=== PATIENT | female | born 1930 | race Caucasian/White ===

== ENCOUNTER 2016-09-12 10:47 | Outpatient (CLI) | payer MEDICARE ==
[2016-09-12 11:44] LABS: Hemoglobin A1c 7.9 % (4.0-6.0)
[2016-09-12 12:09] LABS: ALT (SGPT) 9 U/L (8-55); AST (SGOT) 13 U/L (5-34); Albumin 3.6 g/dL (3.4-4.8); Alkaline Phosphatase 103 U/L (40-150); Anion Gap 14 mmol/L (10-20); BUN (Urea Nitrogen) 14 mg/dL (9.8-20.1); Bilirubin, Total Less than 0.3 mg/dL (0.2-1.2); Calc. Creatinine Clearance 0 mL/min (70-130); Carbon Dioxide 28 mmol/L (23-31); Cardiac Risk 2.9 (Less than 4.5); Chloride 104 mmol/L (98-107); Cholesterol 177 mg/dl (< 200 Desired); Dilantin Less than 1.8 ug/mL (10.0-20.0); Estimated GFR-MDRD 53; Glucose 187 mg/dL (83-110); HDL Cholesterol 61 mg/dL (>60 Neg Risk); LDL Cholesterol, Calculated 98 mg/dL; Potassium 4.1 mmol/L (3.5-5.1); Protein, Total 6.6 g/dL (6.0-8.3); Sodium 142 mmol/L (136-145); Triglycerides 90 mg/dL (Less than 150)
[2016-09-12 13:12] LABS: #Basophils 0.1 thou/uL (0.0-0.2); #Eosinphils 0.7 thou/uL (0.0-0.7); #Lymphocytes 1.8 thou/uL (1.20-3.40); #Monocytes 0.7 thou/uL (0.11-0.59); #Neutrophils 3.8 thou/uL (1.40-6.50); %Basophils 1.3 % (0.0-1.0); %Eosinophils 9.4 % (0.0-10.0); %Lymphocytes 25.1 % (21.0-51.0); %Monocytes 9.7 % (0.0-10.0); %Neutrophils 54.5 % (42.0-75.0); Hemoglobin 12.5 g/dL (12.0-16.0); Mean Corpuscular HGB CONC 32.5 g/dL (32.0-36.0); Mean Corpuscular Volume 98.4 fl (81.0-99.0); Mean Platelet Volume 7.5 fL (7.4-10.4); Platelet Count 250 thou/uL (130-400); RBC Distribution Width 12.3 % (11.5-14.5)
== END 2016-09-12 10:48 | disposition home or self-care (01) ==
LOC: MADLABBHPM 10:47
PROVIDERS: ATTEND Family Medicine
DX: E11.9 Type 2 diabetes mellitus without complications (principal); F32.9 Major depressive disorder, single episode, unspecified; G40.309 Generalized idiopathic epilepsy and epileptic syndromes, not intractable, without status epilepticus
CPT/HCPCS: 36415; 80053; 80061; 80185; 83036; 84443; 85025

== ENCOUNTER 2017-08-20 17:44 | Inpatient (IN) | payer MEDICARE ==
[2017-08-20] MEDS ORDERED: Bisacodyl 10 MG SUPP PR PRN (19:44)
[2017-08-20] MEDS ORDERED: Ondansetron ODT 4 MG TAB PO PRN (19:47)
[2017-08-20] MEDS: Magnesium Oxide 400 MG TAB PO SCH (21:04)
[2017-08-20] MEDS: Metoprolol Tartrate 25 MG TAB PO SCH (21:04)
[2017-08-20] MEDS: Gabapentin 300 MG CAP PO SCH (21:04)
[2017-08-20] MEDS: Multivit, Therapeutic 1 TAB PO SCH (21:04)
[2017-08-20] MEDS: Nitrofurantoin Monohyd/M-Cryst 100 MG CAP PO SCH (21:04)
[2017-08-20] MEDS: Senokot S 8.6-50 MG TAB PO SCH (21:04)
[2017-08-20] MEDS: Acetaminophen 500 MG TAB PO SCH (21:06)
[2017-08-21] MEDS: Acetaminophen 500 MG TAB PO SCH ×4 (04:59→23:25)
[2017-08-21] MEDS: Nystatin Powder 15 GM BOT TOP PRN ×2 (04:59→08:13)
[2017-08-21 05:16] LABS: Anion Gap 14 mmol/L (10-20); BUN (Urea Nitrogen) 17 mg/dL (9.8-20.1); Calc. Creatinine Clearance 49 mL/min (70-130); Calcium 8.4 mg/dL (7.8-10.44); Carbon Dioxide 26 mmol/L (23-31); Chloride 106 mmol/L (98-107); Estimated GFR-MDRD 51; Glucose 213 mg/dL (83-110); Potassium 4.6 mmol/L (3.5-5.1); Sodium 141 mmol/L (136-145)
[2017-08-21 05:21] LABS: Anisocytosis SLIGHT = 6-15 cells (100X) (0-5/hpf); Eosinophils 14 % (0-10); Hemoglobin 8.8 g/dL (12.0-16.0); Hypochromia MODERATE=16-30 cells (100X) (0-5/hpf); Lymphocytes 27 % (21-51); MDiff Complete? YES; Macrocytosis SLIGHT = 6-15 cells (100X) (0-5/hpf); Mean Corpuscular Hemoglobin 24.5 pg (27.0-31.0); Mean Corpuscular Volume 74.3 fl (81.0-99.0); Mean Platelet Volume 6.1 fL (7.4-10.4); Microcytosis SLIGHT = 6-15 cells (100X) (0-5/hpf); Monocytes 10 % (0-10); Neutrophil 46 % (42-75); PLT Morphology Comment Appears Adequate; Platelet Count 337 thou/uL (130-400); Poikilocytosis SLIGHT = 6-15 cells (100X) (0-5/hpf); RBC Distribution Width 18.7 % (11.5-14.5); RBC Morphology Abnormal; Reactive Lymphocytes 1 % (0-10); Red Blood Cell (RBC) Count 3.58 mill/uL (4.20-5.40); White Blood Cell (WBC) Count 9.5 thou/uL (4.8-10.8)
[2017-08-21] MEDS ORDERED: metFORMIN 500 MG TAB PO SCH (08:00)
[2017-08-21] MEDS: Nitrofurantoin Monohyd/M-Cryst 100 MG CAP PO SCH ×2 (08:12→19:57)
[2017-08-21] MEDS: Polyethylene Glycol 3350 17 GM Packet PO SCH (08:12)
[2017-08-21] MEDS: Enoxaparin Sodium 30 MG/0.3 ML SYRINGE SC SCH (08:12)
[2017-08-21] MEDS: Ferrous Sulfate 325 MG TAB PO SCH ×2 (08:13→17:13)
[2017-08-21] MEDS: Gabapentin 300 MG CAP PO SCH ×2 (08:14→19:57)
[2017-08-21] MEDS: Metoprolol Tartrate 25 MG TAB PO SCH ×2 (08:14→19:58)
[2017-08-21] MEDS: Famotidine 20 MG TAB PO SCH (08:14)
[2017-08-21] MEDS: Ascorbic Acid 500 mg Chewable Tablet PO SCH ×2 (08:14→17:13)
[2017-08-21] MEDS: Senokot S 8.6-50 MG TAB PO SCH ×2 (08:15→19:56)
--- NOTE | 2017-08-21 10:10 | HP ---
DATE OF ADMISSION: Admitted to [facility] to extended care on the evening of 08/20/2017. CHIEF COMPLAINT: Weakness following a fracture of the right tibia. 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 She also has a history of seizure s, which have been controlled with low dose Dilantin and diabetes type 2, complicated by peripheral n europathy. The patient has hypertension and chronic kidney disease. The patient resides with her [facility] where her daughter serves as her primary caregiver. The patient is not ambulatory, but has be en able to assist with transfers and sits up in a wheelchair. Patient has been paralyzed on her righ t side and unable to talk from the stroke. The patient had a fall at home and was brought to the [facility] room where she was found to have a closed fracture of the proximal third of the tibia-fibula t hat was oblique and externally rotated. The patient was transferred to [facility] where she remained from 08/17/2017 until 08/20/2017. She was seen in consultation by Dr. Naseem martinez, orthopedic surgeon, who said that due to the patient's comorbidities, her previous stroke leavin g her paralyzed on her right side, and the fact she was not ambulatory, in addition poor circulation and osteoporotic bone, he has recommended nonsurgical treatment. Any surgical intervention would be very high risk and repair would offer little benefit since she was already paralyzed on that side. S he was not a candidate for her cast due to the poor sensation in the leg and foot, so she has been le ft in a long leg knee immobilizer. This was fully discussed with her daughter, Silvia, and has elec armin to transfer her to [facility] for efforts for physical therapy to help improve her bed mobi lity, allow her up in a chair, and continue mobilization of the right leg with a long leg immobilizer . She arrived at [facility] late on the afternoon or early evening of 08/20/2016. The patient was seen early on the morning of 08/21/2017. She was alert. She was aphasic, but would answer my question with a nod of her head in an affirmative or negative fashion. She said she was no t having any pain. PAST HISTORY: Hospitalized from 08/17/2017 until 08/20/2017 at [facility] following a fal l resulting in a fracture of the tibia-fibula oblique located at the proximal middle third of the rig ht lower leg and was externally rotated, manage with splinting and not a cast due to she was not an o perative candidate. See above. Patient has had a previous stroke that has left her with a right hem iparalysis, aphasic, and some mild dysphagia. The stroke occurred in 2000. She has a seizure disord er, which has been controlled on low-dose Dilantin. She has diabetes, type 2; hypertension; hypercho lesterolemia; depression that has been controlled; and peripheral neuropathy of the lower extremities . She had a fracture of the right ankle, requiring open reduction internal fixation by Dr. Huggins in 11/2010. Atrial fibrillation, found during hospitalization on 08/17/2017, managed with oral agents. Not a candidate for long-term anticoagulation due to fall risk. PRESENT MEDICINES: Vitamin D 1000 units daily, multivitamin daily, albuterol 0.083% 3 mL by nebulize r 4 times a day as needed, Cardizem-CD 120 mg daily, Dilantin 100 mg daily, metformin 500 mg b.i.d., ascorbic acid 500 mg b.i.d., Dulcolax suppository 10 mg daily as needed, famotidine 20 mg daily, ferr ous sulfate 325 mg b.i.d., gabapentin 300 mg b.i.d., magnesium oxide 400 mg at bedtime, metoprolol ta rtrate 12.5 mg b.i.d., nitrofurantoin 100 mg b.i.d. for additional 5 days, Nystatin powder applied to reddened skin fold areas as needed, MiraLax 17 grams 8 ounces water daily, Senokot-S 1 b.i.d., sotal ol 150 mg daily. Tramadol 50 mg b.i.d. and the acetaminophen 500 mg two 4 times a day. ALLERGIES: CODEINE, causes vomiting; HYDROCODONE, ETODOLAC, and KAYCEE INHIBITORS. REVIEW OF SYSTEMS: The patient not able to answer review of systems, but was able to respond by a po sitive or negative nod of her head. Pulmonary: No shortness of breath. Cardiovascular: No chest p ain. Gastrointestinal: No nausea or vomiting. No diarrhea. Neurologic: No seizures. ADLs: The patient resides with her daughter and is able to assist with transfer, is able to sit up i n a chair, is able to assist with dressing, requires assistance with bathing, is able to feed herself . HABITS: Alcohol none. Tobacco none. CODE STATUS: FULL CODE. PHYSICAL EXAMINATION: GENERAL: Shows a pleasant 86-year-old white female, who is lying in bed. She is alert, looks very c omfortable. She is wearing a long leg knee immobilizer on the right leg. VITAL SIGNS: Show a temperature of 97.4; pulse 70; respirations 18; O2 sat 93% on room air; blood pr essure 98/53, earlier 126/59. HEAD: Normocephalic and atraumatic. EYES: Pupils are equal, round, and reactive. Sclerae nonicteric. EARS: Blocked with cerumen. NOSE: Normal. MOUTH AND THROAT: Normal. NECK: Carotids have an irregular rhythm. There are no bruits. LUNGS: Clear. HEART: Irregularly irregular rhythm with adequate ventricular response. No murmurs. ABDOMEN: Soft, no organomegaly, no areas of tenderness. EXTREMITIES: Lower extremities: Her right lower extremity has on it a long leg knee immobilizer. T he right foot is externally rotated. There is no edema in the foot. There is no edema in the left l eg. NEUROLOGIC: Patient has a right hemiparalysis. She is aphasic. She has good strength on the left. She is alert and can answer questions with a positive or negative nod of the head. IMPRESSION: 1. Generalized weakness. A. Secondary to a fall resulting in a closed fracture of the proximal tibia and fibula. B. Nonambulatory prior to fall secondary to previous cerebrovascular accident. 2. Closed oblique fracture of the right tibia and fibula at the junction of the proximal and middle third. A. Secondary to a fall on 08/17/2017. B. Managed nonoperatively due to her comorbidities and stroke leaving her paralyzed on the right lida e. C. Managed with a long leg knee immobilizer, not a candidate for cast due to the numbness in the rig ht leg. 3. Status post cerebrovascular accident in 2000. A. Leaving patient with a right hemiparalysis, aphasia, and mild dysphagia. 4. Atrial fibrillation. A. Rate controlled. B. Not a candidate for anticoagulation due to fall risk. 5. Seizure disorder, controlled. 6. Depression, controlled. 7. Diabetes, type 2. PLAN: The patient has been admitted to the [facility] to extended care, physical therapy will work with her in an effort to try to improve her bed and chair mobility and assist with transfers wit h the fracture of the right leg. She will need to wear the knee immobilizer. She is not a candidate for any type of casting due to the peripheral neuropathy, leaving her with numbness in that leg. We will continue her routine medications. The patient is FULL CODE status. We will continue deep vein thrombosis prophylaxis.
[2017-08-21] MEDS: metFORMIN 500 MG TAB PO SCH ×2 (10:24→19:58)
[2017-08-21] MEDS: Clotrimazole 1% Cream 15 GM TUBE TOP SCH ×2 (10:35→19:59)
[2017-08-21] MEDS: Multivit, Therapeutic 1 TAB PO SCH (19:57)
[2017-08-21] MEDS: Magnesium Oxide 400 MG TAB PO SCH (19:59)
[2017-08-22] MEDS: Acetaminophen 500 MG TAB PO SCH ×4 (05:07→22:58)
[2017-08-22 06:04] LABS: Anion Gap 17 mmol/L (10-20); BUN (Urea Nitrogen) 21 mg/dL (9.8-20.1); Calc. Creatinine Clearance 47 mL/min (70-130); Calcium 8.5 mg/dL (7.8-10.44); Carbon Dioxide 24 mmol/L (23-31); Chloride 105 mmol/L (98-107); Estimated GFR-MDRD 48; Glucose 279 mg/dL (83-110); Potassium 4.8 mmol/L (3.5-5.1); Sodium 141 mmol/L (136-145)
[2017-08-22 06:26] LABS: Hemoglobin 8.1 g/dL (12.0-16.0); Hypochromia MODERATE=16-30 cells (100X) (0-5/hpf); Lymphocytes 31 % (21-51); MDiff Complete? YES; Mean Corpuscular Hemoglobin 24.7 pg (27.0-31.0); Mean Corpuscular Volume 74.8 fl (81.0-99.0); Mean Platelet Volume 6.1 fL (7.4-10.4); Microcytosis SLIGHT = 6-15 cells (100X) (0-5/hpf); Monocytes 11 % (0-10); Myelocyte 1 % (0-0); Neutrophil 57 % (42-75); PLT Morphology Comment Appears Adequate; Platelet Count 366 thou/uL (130-400); Polychromasia SLIGHT = 2-3 cells (100X) (0-2/hpf); RBC Distribution Width 20.7 % (11.5-14.5)
[2017-08-22] MEDS ORDERED: Dextrose 50% Abboject 50 ML SYRINGE SLOW IVP PRN (07:54)
[2017-08-22] MEDS ORDERED: Dextrose 5% in Water 1,000 ML IV PRN (07:54)
--- NOTE | 2017-08-22 08:41 | PRG ---
DATE OF SERVICE: 08/22/2017 SUBJECTIVE: Nurses report no problems other than blood sugars at times running high. The patient se ems to be comfortable. OBJECTIVE: The patient lying in bed, alert, appears comfortable in no distress. Her temperature is 97, pulse 103, respirations 20, O2 sat 92% on room air, blood pressure 113/51. Lungs are clear. Hea rt irregular regular rhythm. Extremities; no edema. Right lower foot is externally rotated. The pa tient is wearing a long leg knee immobilizer. Lab shows an H&H of 8.1 and 24.7, white cell count 10,000 with 57% segs, 31% lymphocytes, and a plate let count of 366,000. Sodium 141, potassium 4.8, BUN 21, creatinine 1.08, GFR of 48, glucose 279. L ast night bedtime glucose was 344. Dilantin level pending. Hemoglobin A1c pending. ASSESSMENT: 1. Generalized weakness. A. Secondary to a fall resulting in a closed fracture of the proximal tibia and fibula. B. Nonambulatory prior to fall secondary to previous cerebrovascular accident. 2. Closed oblique fracture of the right tibia and fibula at the junction of the proximal and middle third. A. Secondary to a fall on 08/17/2017. B. Managed nonoperatively due to her comorbidities and stroke leaving her paralyzed on the right lida e. 1C. Tolerating sitting up in a chair. 3. Status post cerebrovascular accident in 2000. A. Leaving patient with a right hemiparalysis, aphasia, and mild dysphagia. 4. Atrial fibrillation. A. Rate controlled as of 08/22/2017. B. Not a candidate for anticoagulation due to fall risk. 5. Seizure disorder, controlled. 6. Depression, controlled. 7. Diabetes, type 2. A. Not adequately controlled as of 08/22/2017, hemoglobin A1c pending. PLAN: We will place patient on a mild sliding scale before meals. Continue the limited physical the rapy.
[2017-08-22] MEDS: metFORMIN 500 MG TAB PO SCH ×2 (08:43→20:29)
[2017-08-22] MEDS: Metoprolol Tartrate 25 MG TAB PO SCH ×2 (08:45→20:29)
[2017-08-22] MEDS: Gabapentin 300 MG CAP PO SCH ×2 (08:45→20:27)
[2017-08-22] MEDS: Famotidine 20 MG TAB PO SCH (08:45)
[2017-08-22] MEDS: Ascorbic Acid 500 mg Chewable Tablet PO SCH ×2 (08:45→17:15)
[2017-08-22] MEDS: Polyethylene Glycol 3350 17 GM Packet PO SCH (08:46)
[2017-08-22] MEDS: Senokot S 8.6-50 MG TAB PO SCH ×2 (08:46→20:28)
[2017-08-22] MEDS: Ferrous Sulfate 325 MG TAB PO SCH ×2 (08:46→17:16)
[2017-08-22] MEDS: Nitrofurantoin Monohyd/M-Cryst 100 MG CAP PO SCH ×2 (08:48→20:28)
[2017-08-22] MEDS: HumaLOG 300 UNITS/3 ML VIAL SC PRN ×2 (08:50→11:53)
[2017-08-22] MEDS: Clotrimazole 1% Cream 15 GM TUBE TOP SCH ×2 (08:51→20:27)
[2017-08-22] MEDS: Enoxaparin Sodium 30 MG/0.3 ML SYRINGE SC SCH (08:51)
[2017-08-22 11:17] LABS: Hemoglobin A1c 8.9 % (4.0-6.0)
[2017-08-22 12:44] LABS: Dilantin Less than 1.8 ug/mL (10.0-20.0)
[2017-08-22] MEDS: Multivit, Therapeutic 1 TAB PO SCH (20:28)
[2017-08-22] MEDS: Magnesium Oxide 400 MG TAB PO SCH (20:29)
[2017-08-23] MEDS: Acetaminophen 500 MG TAB PO SCH ×4 (05:17→23:19)
[2017-08-23] MEDS: Ferrous Sulfate 325 MG TAB PO SCH ×2 (07:33→17:00)
[2017-08-23] MEDS: Ascorbic Acid 500 mg Chewable Tablet PO SCH ×2 (07:33→16:59)
[2017-08-23] MEDS: HumaLOG 300 UNITS/3 ML VIAL SC PRN ×3 (07:34→17:00)
[2017-08-23] MEDS: Clotrimazole 1% Cream 15 GM TUBE TOP SCH ×2 (09:52→21:00)
[2017-08-23] MEDS: Enoxaparin Sodium 30 MG/0.3 ML SYRINGE SC SCH (09:52)
[2017-08-23] MEDS: Gabapentin 300 MG CAP PO SCH ×2 (09:53→20:58)
[2017-08-23] MEDS: Metoprolol Tartrate 25 MG TAB PO SCH ×2 (09:53→20:58)
[2017-08-23] MEDS: Famotidine 20 MG TAB PO SCH (09:53)
[2017-08-23] MEDS: metFORMIN 500 MG TAB PO SCH ×2 (09:53→20:58)
[2017-08-23] MEDS: Nitrofurantoin Monohyd/M-Cryst 100 MG CAP PO SCH ×2 (09:54→20:58)
[2017-08-23] MEDS: Polyethylene Glycol 3350 17 GM Packet PO SCH (09:56)
[2017-08-23] MEDS: Senokot S 8.6-50 MG TAB PO SCH ×2 (09:56→20:59)
--- NOTE | 2017-08-23 10:08 | PRG ---
DATE OF SERVICE: 08/23/2017 SUBJECTIVE: The patient is sitting up in a geriatric chair, just having eaten breakfast. The nutriti onist has recommended that the patient (00:25) which will allow her a little more freedom in fe eding herself. The patient has been comfortable. She said her pain is manageable with (00:38) . OBJECTIVE: GENERAL: The patient is sitting upright in her geriatric chair. She looks very comfortable and in n o distress. She has a knee immobilizer on that right leg. VITAL SIGNS: Her temperature is 97.9, pulse 98, respirations 18, O2 sat 94%, blood pressure 112/55. LUNGS: Clear. HEART: Regular rate. EXTREMITIES: Right knee has a long leg knee immobilizer. Right foot is externally rotated. There i s bruising up over the proximal lower leg and knee. LABORATORY DATA: FBS for the morning, pending. Her hemoglobin A1c is 8.9. The patient has been sta rted on a mild sliding scale before meals. Her FBS before supper yesterday was 118. FBS this betty oliveira, pending. ASSESSMENT: 1. Generalized weakness. A. Secondary to a fall resulting in a closed fracture of the proximal tibia and fibula. B. Nonambulatory prior to fall secondary to previous cerebrovascular accident. C. Tolerating sitting up in a chair. Still requires the long leg knee immobilizer as of 08/23/2017. 2. Closed oblique fracture of the right tibia and fibula at the junction of the proximal and middle third. A. Secondary to a fall on 08/17/2017. B. Managed nonoperatively due to her comorbidities and stroke leaving her paralyzed on the right lida e. 1C. Tolerating sitting up in a chair. 3. Status post cerebrovascular accident in 2000. A. Leaving patient with a right hemiparalysis, aphasia, and mild dysphagia. 4. Atrial fibrillation. A. Rate controlled as of 08/22/2017. B. Not a candidate for anticoagulation due to fall risk. 5. Seizure disorder, controlled. 6. Depression, controlled. 7. Diabetes, type 2. A. Hemoglobin A1c of 8.9 as of 08/22/2017. B. Receiving metformin and a mild sliding scale. PLAN: Continue present care. Continue physical therapy.
[2017-08-23] MEDS: Magnesium Oxide 400 MG TAB PO SCH (20:58)
[2017-08-23] MEDS: Multivit, Therapeutic 1 TAB PO SCH (20:59)
[2017-08-24] MEDS: Acetaminophen 500 MG TAB PO SCH ×4 (05:16→22:23)
[2017-08-24] MEDS: Polyethylene Glycol 3350 17 GM Packet PO SCH (09:02)
[2017-08-24] MEDS: Enoxaparin Sodium 30 MG/0.3 ML SYRINGE SC SCH (09:02)
[2017-08-24] MEDS: Metoprolol Tartrate 25 MG TAB PO SCH ×2 (09:02→20:31)
[2017-08-24] MEDS: Gabapentin 300 MG CAP PO SCH ×2 (09:02→20:30)
[2017-08-24] MEDS: Famotidine 20 MG TAB PO SCH (09:03)
[2017-08-24] MEDS: metFORMIN 500 MG TAB PO SCH ×2 (09:03→20:30)
[2017-08-24] MEDS: Senokot S 8.6-50 MG TAB PO SCH ×2 (09:03→20:31)
[2017-08-24] MEDS: Ascorbic Acid 500 mg Chewable Tablet PO SCH ×2 (09:03→16:58)
[2017-08-24] MEDS: Ferrous Sulfate 325 MG TAB PO SCH ×2 (09:04→17:00)
[2017-08-24] MEDS: Clotrimazole 1% Cream 15 GM TUBE TOP SCH ×2 (09:04→20:30)
[2017-08-24] MEDS: HumaLOG 300 UNITS/3 ML VIAL SC PRN (14:31)
[2017-08-24] MEDS: Magnesium Oxide 400 MG TAB PO SCH (20:30)
[2017-08-24] MEDS: Multivit, Therapeutic 1 TAB PO SCH (20:31)
[2017-08-25] MEDS: Acetaminophen 500 MG TAB PO SCH ×3 (05:48→16:32)
[2017-08-25] MEDS: Ferrous Sulfate 325 MG TAB PO SCH ×2 (08:01→16:32)
[2017-08-25] MEDS: Senokot S 8.6-50 MG TAB PO SCH ×2 (08:01→21:44)
[2017-08-25] MEDS: Famotidine 20 MG TAB PO SCH (08:01)
[2017-08-25] MEDS: Gabapentin 300 MG CAP PO SCH ×2 (08:02→21:44)
[2017-08-25] MEDS: metFORMIN 500 MG TAB PO SCH ×2 (08:02→21:44)
[2017-08-25] MEDS: Ascorbic Acid 500 mg Chewable Tablet PO SCH ×2 (08:02→16:32)
[2017-08-25] MEDS: Metoprolol Tartrate 25 MG TAB PO SCH ×2 (08:02→21:44)
[2017-08-25] MEDS: Clotrimazole 1% Cream 15 GM TUBE TOP SCH ×2 (08:02→21:48)
[2017-08-25] MEDS: Polyethylene Glycol 3350 17 GM Packet PO SCH (08:02)
[2017-08-25] MEDS: Enoxaparin Sodium 30 MG/0.3 ML SYRINGE SC SCH (08:02)
[2017-08-25] MEDS: HumaLOG 300 UNITS/3 ML VIAL SC PRN (10:19)
[2017-08-25] MEDS: Magnesium Oxide 400 MG TAB PO SCH (21:43)
[2017-08-25] MEDS: Multivit, Therapeutic 1 TAB PO SCH (21:43)
[2017-08-26] MEDS: Acetaminophen 500 MG TAB PO SCH ×5 (00:40→22:29)
[2017-08-26] MEDS: Ascorbic Acid 500 mg Chewable Tablet PO SCH ×2 (07:57→16:59)
[2017-08-26] MEDS: Clotrimazole 1% Cream 15 GM TUBE TOP SCH ×2 (07:58→20:57)
[2017-08-26] MEDS: Ferrous Sulfate 325 MG TAB PO SCH ×2 (07:58→17:00)
[2017-08-26] MEDS: Enoxaparin Sodium 30 MG/0.3 ML SYRINGE SC SCH (07:58)
[2017-08-26] MEDS: metFORMIN 500 MG TAB PO SCH ×2 (07:59→20:57)
[2017-08-26] MEDS: Metoprolol Tartrate 25 MG TAB PO SCH ×2 (07:59→20:57)
[2017-08-26] MEDS: Gabapentin 300 MG CAP PO SCH ×2 (07:59→20:57)
[2017-08-26] MEDS: Senokot S 8.6-50 MG TAB PO SCH ×2 (07:59→20:58)
[2017-08-26] MEDS: Polyethylene Glycol 3350 17 GM Packet PO SCH (07:59)
[2017-08-26] MEDS: Famotidine 20 MG TAB PO SCH (07:59)
[2017-08-26] MEDS: HumaLOG 300 UNITS/3 ML VIAL SC PRN ×3 (08:00→16:59)
--- NOTE | 2017-08-26 09:54 | PRG ---
DATE OF SERVICE: 08/26/2017 SUBJECTIVE: The patient had no complaint. Nurses report no change in her condition. The patient michelle s been tolerating sitting up in a chair fine. She continues to wear the knee immobilizer over the ri ght leg. OBJECTIVE: The patient is lying in bed, alert, appears very comfortable and in no distress. Her tem perature 97.5, pulse 102, respirations 18, O2 sat 95% on room air, blood pressure 122/64. Lungs are clear. Heart, regular rate. Right leg, there is no edema in the lower leg, right foot, ankle is ext ernally rotated. FBS this morning was 219. ASSESSMENT: 1. Generalized weakness. A. Secondary to a fall resulting in a closed fracture of the proximal tibia and fibula. B. Nonambulatory prior to fall secondary to previous cerebrovascular accident. C. Tolerating sitting up in a chair. Still requires the long leg knee immobilizer as of 08/26/2017. 2. Closed oblique fracture of the right tibia and fibula at the junction of the proximal and middle third. A. Secondary to a fall on 08/17/2017. B. Managed nonoperatively due to her comorbidities and stroke leaving her paralyzed on the right lida e. C. Managed with a long leg knee immobilizer. D. Tolerating sitting up in a chair, comfortable as of 08/26/2017. 3. Status post cerebrovascular accident in 2000. A. Leaving patient with a right hemiparalysis, aphasia, and mild dysphagia. 4. Atrial fibrillation. A. Rate controlled as of 08/22/2017. B. Not a candidate for anticoagulation due to fall risk. 5. Seizure disorder, controlled. 6. Depression, controlled. 7. Diabetes, type 2. A. Hemoglobin A1c of 8.9 as of 08/22/2017. B. Receiving metformin and a mild sliding scale. PLAN: Continue present care. Continue physical therapy.
[2017-08-26] MEDS: Magnesium Oxide 400 MG TAB PO SCH (20:57)
[2017-08-26] MEDS: Multivit, Therapeutic 1 TAB PO SCH (20:58)
[2017-08-27] MEDS: Acetaminophen 500 MG TAB PO SCH ×4 (05:39→22:19)
[2017-08-27] MEDS: Polyethylene Glycol 3350 17 GM Packet PO SCH (08:41)
[2017-08-27] MEDS: Levemir Flexpen 100 UNITS/ML PEN SC SCH (08:41)
[2017-08-27] MEDS: Ferrous Sulfate 325 MG TAB PO SCH ×2 (08:42→17:25)
[2017-08-27] MEDS: Ascorbic Acid 500 mg Chewable Tablet PO SCH ×2 (08:42→17:25)
[2017-08-27] MEDS: metFORMIN 500 MG TAB PO SCH ×2 (08:42→20:47)
[2017-08-27] MEDS: Famotidine 20 MG TAB PO SCH (08:42)
[2017-08-27] MEDS: Gabapentin 300 MG CAP PO SCH ×2 (08:42→20:47)
[2017-08-27] MEDS: Senokot S 8.6-50 MG TAB PO SCH ×2 (08:42→20:48)
[2017-08-27] MEDS: Clotrimazole 1% Cream 15 GM TUBE TOP SCH ×2 (08:43→20:48)
[2017-08-27] MEDS: Metoprolol Tartrate 25 MG TAB PO SCH ×2 (08:43→20:47)
[2017-08-27] MEDS: HumaLOG 300 UNITS/3 ML VIAL SC PRN ×2 (08:43→11:34)
[2017-08-27] MEDS: Enoxaparin Sodium 30 MG/0.3 ML SYRINGE SC SCH (08:43)
[2017-08-27] MEDS: Multivit, Therapeutic 1 TAB PO SCH (20:47)
[2017-08-27] MEDS: Magnesium Oxide 400 MG TAB PO SCH (20:47)
[2017-08-28] MEDS: Acetaminophen 500 MG TAB PO SCH ×4 (05:30→22:11)
[2017-08-28] MEDS: Enoxaparin Sodium 30 MG/0.3 ML SYRINGE SC SCH (08:04)
[2017-08-28] MEDS: Levemir Flexpen 100 UNITS/ML PEN SC SCH (08:06)
[2017-08-28] MEDS: HumaLOG 300 UNITS/3 ML VIAL SC PRN ×2 (08:06→16:36)
[2017-08-28] MEDS: Polyethylene Glycol 3350 17 GM Packet PO SCH (08:12)
[2017-08-28] MEDS: Famotidine 20 MG TAB PO SCH (08:13)
[2017-08-28] MEDS: Ferrous Sulfate 325 MG TAB PO SCH ×2 (08:13→16:30)
[2017-08-28] MEDS: Ascorbic Acid 500 mg Chewable Tablet PO SCH ×2 (08:13→16:30)
[2017-08-28] MEDS: Gabapentin 300 MG CAP PO SCH ×2 (08:13→20:48)
[2017-08-28] MEDS: metFORMIN 500 MG TAB PO SCH ×2 (08:13→20:48)
[2017-08-28] MEDS: Senokot S 8.6-50 MG TAB PO SCH ×2 (08:14→20:49)
[2017-08-28] MEDS: Metoprolol Tartrate 25 MG TAB PO SCH ×2 (08:14→20:48)
[2017-08-28] MEDS: Clotrimazole 1% Cream 15 GM TUBE TOP SCH ×2 (08:14→20:48)
--- NOTE | 2017-08-28 10:11 | PRG ---
DATE OF SERVICE: 08/28/2017 SUBJECTIVE: Patient has been doing fine. She has had indicated no problem. She has been tolerating sitting up in a bedside chair well, assisting some transfer, and eating well. She has had no seizur es. OBJECTIVE: GENERAL: Patient is sitting up in a bedside in geriatric chair. She is alert, appears comfortable, in no distress. VITAL SIGNS: Temp 97.8, respirations are 18, O2 sat 100% on room air, pulse 93, blood pressure 126/6 8. LUNGS: Clear. HEART: Regular rate. EXTREMITIES: Right leg is externally rotated. She has a right hemiparalysis. She is wearing a righ t lower leg, long leg brace. ASSESSMENT: 1. Generalized weakness. A. Secondary to a fall resulting in a closed fracture of the proximal tibia and fibula. B. Nonambulatory prior to fall secondary to previous cerebrovascular accident. C. Tolerating sitting up in a chair. Still requires the long leg knee immobilizer as of 08/28/2017. 2. Closed oblique fracture of the right tibia and fibula at the junction of the proximal and middle third. A. Secondary to a fall on 08/17/2017. B. Managed nonoperatively due to her comorbidities and stroke leaving her paralyzed on the right lida e. C. Managed with a long leg knee immobilizer. D. Tolerating sitting up in a chair, comfortable as of 08/28/2017. 3. Status post cerebrovascular accident in 2000. A. Leaving patient with a right hemiparalysis, aphasia, and mild dysphagia. 4. Atrial fibrillation. A. Rate controlled as of 08/22/2017. B. Not a candidate for anticoagulation due to fall risk. 5. Seizure disorder, controlled. 6. Depression, controlled. 7. Diabetes, type 2. A. Hemoglobin A1c of 8.9 as of 08/22/2017. B. Receiving metformin and a mild sliding scale. PLAN: Patient's blood sugars have been running a little higher. Yesterday, she was started on Lantu s 10 units daily, along with her sliding scale and the metformin. FBS this morning pending. Yesterd ay afternoon at 4:00, it was 110.
[2017-08-28] MEDS: Magnesium Oxide 400 MG TAB PO SCH (20:48)
[2017-08-28] MEDS: Multivit, Therapeutic 1 TAB PO SCH (20:49)
[2017-08-29 05:31] LABS: Anion Gap 14 mmol/L (10-20); BUN (Urea Nitrogen) 28 mg/dL (9.8-20.1); Calc. Creatinine Clearance 43 mL/min (70-130); Calcium 8.6 mg/dL (7.8-10.44); Carbon Dioxide 25 mmol/L (23-31); Chloride 108 mmol/L (98-107); Estimated GFR-MDRD 43; Glucose 171 mg/dL (83-110); Potassium 4.6 mmol/L (3.5-5.1); Sodium 142 mmol/L (136-145)
[2017-08-29 05:35] LABS: #Basophils 0.2 thou/uL (0.0-0.2); #Eosinphils 0.8 thou/uL (0.0-0.7); #Lymphocytes 3.1 thou/uL (1.20-3.40); #Monocytes 1.2 thou/uL (0.11-0.59); #Neutrophils 4.9 thou/uL (1.40-6.50); %Basophils 1.8 % (0.0-1.0); %Eosinophils 7.9 % (0.0-10.0); %Lymphocytes 30.3 % (21.0-51.0); %Monocytes 11.9 % (0.0-10.0); %Neutrophils 48.1 % (42.0-75.0); Hemoglobin 8.2 g/dL (12.0-16.0); Mean Corpuscular HGB CONC 30.7 g/dL (32.0-36.0); Mean Corpuscular Hemoglobin 24.2 pg (27.0-31.0); Mean Corpuscular Volume 78.9 fl (81.0-99.0); Mean Platelet Volume 5.5 fL (7.4-10.4); Platelet Count 531 thou/uL (130-400); RBC Distribution Width 24.4 % (11.5-14.5); Red Blood Cell (RBC) Count 3.41 mill/uL (4.20-5.40); White Blood Cell (WBC) Count 10.2 thou/uL (4.8-10.8)
[2017-08-29 05:36] LABS: Hypochromia MODERATE=16-30 cells (100X) (0-5/hpf); MDiff Complete? YES; Macrocytosis SLIGHT = 6-15 cells (100X) (0-5/hpf); Microcytosis SLIGHT = 6-15 cells (100X) (0-5/hpf); Ovalocytes SLIGHT = 2-5 cells (100X) (0-1/hpf); PLT Morphology Comment Appears Adequate; RBC Morphology Abnormal
[2017-08-29] MEDS: Acetaminophen 500 MG TAB PO SCH ×4 (05:49→21:50)
[2017-08-29] MEDS: Polyethylene Glycol 3350 17 GM Packet PO SCH (08:37)
[2017-08-29] MEDS: Enoxaparin Sodium 30 MG/0.3 ML SYRINGE SC SCH (08:37)
[2017-08-29] MEDS: Senokot S 8.6-50 MG TAB PO SCH ×2 (08:38→21:50)
[2017-08-29] MEDS: Ascorbic Acid 500 mg Chewable Tablet PO SCH ×2 (08:38→16:49)
[2017-08-29] MEDS: Gabapentin 300 MG CAP PO SCH ×2 (08:38→21:49)
[2017-08-29] MEDS: Famotidine 20 MG TAB PO SCH (08:38)
[2017-08-29] MEDS: Metoprolol Tartrate 25 MG TAB PO SCH ×2 (08:38→21:49)
[2017-08-29] MEDS: Ferrous Sulfate 325 MG TAB PO SCH ×2 (08:38→16:49)
[2017-08-29] MEDS: metFORMIN 500 MG TAB PO SCH ×2 (08:39→21:49)
[2017-08-29] MEDS: Levemir Flexpen 100 UNITS/ML PEN SC SCH (08:40)
[2017-08-29] MEDS: HumaLOG 300 UNITS/3 ML VIAL SC PRN ×2 (08:40→11:57)
[2017-08-29] MEDS: Clotrimazole 1% Cream 15 GM TUBE TOP SCH ×2 (08:42→21:49)
[2017-08-29] MEDS: Magnesium Oxide 400 MG TAB PO SCH (21:49)
[2017-08-29] MEDS: Multivit, Therapeutic 1 TAB PO SCH (21:50)
[2017-08-30] MEDS: Acetaminophen 500 MG TAB PO SCH ×4 (05:33→23:21)
[2017-08-30] MEDS: Polyethylene Glycol 3350 17 GM Packet PO SCH (08:23)
[2017-08-30] MEDS: Enoxaparin Sodium 30 MG/0.3 ML SYRINGE SC SCH (08:23)
[2017-08-30] MEDS: Ascorbic Acid 500 mg Chewable Tablet PO SCH ×2 (08:24→17:00)
[2017-08-30] MEDS: Levemir Flexpen 100 UNITS/ML PEN SC SCH ×2 (08:24→09:31)
[2017-08-30] MEDS: Senokot S 8.6-50 MG TAB PO SCH ×2 (08:24→20:40)
[2017-08-30] MEDS: Ferrous Sulfate 325 MG TAB PO SCH ×2 (08:25→17:00)
[2017-08-30] MEDS: Metoprolol Tartrate 25 MG TAB PO SCH ×2 (08:25→20:39)
[2017-08-30] MEDS: Gabapentin 300 MG CAP PO SCH ×2 (08:25→20:38)
[2017-08-30] MEDS: Famotidine 20 MG TAB PO SCH (08:25)
[2017-08-30] MEDS: metFORMIN 500 MG TAB PO SCH ×2 (08:25→20:38)
[2017-08-30] MEDS: Clotrimazole 1% Cream 15 GM TUBE TOP SCH ×2 (08:26→20:41)
--- NOTE | 2017-08-30 11:43 | PRG ---
DATE OF SERVICE: 08/30/2017 SUBJECTIVE: Patient has been doing well. She has had a good appetite. She is tolerating sitting up in a geriatric chair without any difficulty. Physical therapy continues to work with her and she is able to stand and pivot on transfer from bed to a chair, but requiring maximum assistance. OBJECTIVE: GENERAL APPEARANCE: The patient is sitting up in her geriatric chair just having completed her break fast. She is alert, happy, smiling and appears very comfortable. VITAL SIGNS: Show temperature of 97.5, pulse 100, respirations 18, O2 sat 95% on room air, blood pre ssure 149/60. LUNGS: Clear. HEART: Irregular regular rhythm with adequate ventricular response. EXTREMITIES: No edema. The patient's right lower leg is in a long leg knee immobilizer with leg rot ated externally. LABORATORY DATA: Labs from 08/29/2017 shows sodium 142, potassium 4.6, BUN 28, creatinine 1.2. FBS 171. Hemoglobin and hematocrit 8.2 and 26.9, white cell count 10,200, platelet count 531,000. ASSESSMENT: 1. Generalized weakness. A. Secondary to a fall resulting in a closed fracture of the proximal tibia and fibula. B. Nonambulatory prior to fall secondary to previous cerebrovascular accident. C. Tolerating sitting up in a chair. Able to pivot for transfer, but requiring maximum assistance a s of 08/30/2017. 2. Closed oblique fracture of the right tibia and fibula at the junction of the proximal and middle third. A. Secondary to a fall on 08/17/2017. B. Managed nonoperatively due to her comorbidities and stroke leaving her paralyzed on the right lida e. C. Managed with a long leg knee immobilizer. D. Tolerating sitting up in a chair, comfortable as of 08/30/2017. 3. Status post cerebrovascular accident in 2000. A. Leaving patient with a right hemiparalysis, aphasia, and mild dysphagia. 4. Atrial fibrillation, chronic. A. Rate controlled as of 08/30/2017. B. Not a candidate for anticoagulation due to fall risk. 5. Seizure disorder, controlled. 6. Depression, controlled. 7. Diabetes, type 2. A. Hemoglobin A1c of 8.9 as of 08/22/2017. B. Receiving metformin and a mild sliding scale. PLAN: Continue present care. Patient's FBS are running from 136-250, most of these are 180 and abov e. We will increase the Levemir to 15 units. Continue physical therapy.
[2017-08-30] MEDS: HumaLOG 300 UNITS/3 ML VIAL SC PRN (13:26)
[2017-08-30] MEDS: Magnesium Oxide 400 MG TAB PO SCH (20:38)
[2017-08-30] MEDS: Multivit, Therapeutic 1 TAB PO SCH (20:39)
[2017-08-31] MEDS: Acetaminophen 500 MG TAB PO SCH ×4 (05:40→21:03)
[2017-08-31] MEDS: Levemir Flexpen 100 UNITS/ML PEN SC SCH (08:18)
[2017-08-31] MEDS: HumaLOG 300 UNITS/3 ML VIAL SC PRN ×2 (08:18→11:44)
[2017-08-31] MEDS: Gabapentin 300 MG CAP PO SCH ×2 (08:19→20:43)
[2017-08-31] MEDS: metFORMIN 500 MG TAB PO SCH ×2 (08:19→20:43)
[2017-08-31] MEDS: Metoprolol Tartrate 25 MG TAB PO SCH ×2 (08:19→20:43)
[2017-08-31] MEDS: Famotidine 20 MG TAB PO SCH (08:20)
[2017-08-31] MEDS: Enoxaparin Sodium 30 MG/0.3 ML SYRINGE SC SCH (08:20)
[2017-08-31] MEDS: Clotrimazole 1% Cream 15 GM TUBE TOP SCH ×2 (08:20→20:46)
[2017-08-31] MEDS: Ascorbic Acid 500 mg Chewable Tablet PO SCH ×2 (08:20→17:04)
[2017-08-31] MEDS: Ferrous Sulfate 325 MG TAB PO SCH ×2 (08:20→17:04)
[2017-08-31] MEDS: Senokot S 8.6-50 MG TAB PO SCH ×2 (08:20→20:43)
[2017-08-31] MEDS: Polyethylene Glycol 3350 17 GM Packet PO SCH (08:21)
[2017-08-31] MEDS: Magnesium Oxide 400 MG TAB PO SCH (20:43)
[2017-08-31] MEDS: Multivit, Therapeutic 1 TAB PO SCH (20:43)
[2017-09-01] MEDS: Acetaminophen 500 MG TAB PO SCH ×3 (05:35→16:55)
[2017-09-01] MEDS: Ferrous Sulfate 325 MG TAB PO SCH ×2 (09:50→16:56)
[2017-09-01] MEDS: Ascorbic Acid 500 mg Chewable Tablet PO SCH ×2 (09:50→16:56)
[2017-09-01] MEDS: Gabapentin 300 MG CAP PO SCH ×2 (09:51→20:54)
[2017-09-01] MEDS: Clotrimazole 1% Cream 15 GM TUBE TOP SCH ×2 (09:51→20:54)
[2017-09-01] MEDS: Levemir Flexpen 100 UNITS/ML PEN SC SCH (09:51)
[2017-09-01] MEDS: Famotidine 20 MG TAB PO SCH (09:51)
[2017-09-01] MEDS: Enoxaparin Sodium 30 MG/0.3 ML SYRINGE SC SCH (09:51)
[2017-09-01] MEDS: Polyethylene Glycol 3350 17 GM Packet PO SCH (09:52)
[2017-09-01] MEDS: metFORMIN 500 MG TAB PO SCH ×2 (09:52→20:53)
[2017-09-01] MEDS: HumaLOG 300 UNITS/3 ML VIAL SC PRN ×2 (09:52→16:55)
[2017-09-01] MEDS: Senokot S 8.6-50 MG TAB PO SCH ×2 (09:52→20:52)
[2017-09-01] MEDS: Metoprolol Tartrate 25 MG TAB PO SCH ×2 (09:52→20:53)
[2017-09-01] MEDS: Magnesium Oxide 400 MG TAB PO SCH (20:53)
[2017-09-01] MEDS: Multivit, Therapeutic 1 TAB PO SCH (20:54)
[2017-09-02] MEDS: Acetaminophen 500 MG TAB PO SCH ×5 (00:20→22:07)
[2017-09-02] MEDS: Gabapentin 300 MG CAP PO SCH ×2 (08:38→20:58)
[2017-09-02] MEDS: Polyethylene Glycol 3350 17 GM Packet PO SCH (08:38)
[2017-09-02] MEDS: Enoxaparin Sodium 30 MG/0.3 ML SYRINGE SC SCH (08:38)
[2017-09-02] MEDS: Ferrous Sulfate 325 MG TAB PO SCH ×2 (08:39→16:57)
[2017-09-02] MEDS: Senokot S 8.6-50 MG TAB PO SCH ×2 (08:39→20:57)
[2017-09-02] MEDS: Metoprolol Tartrate 25 MG TAB PO SCH ×2 (08:39→20:57)
[2017-09-02] MEDS: Famotidine 20 MG TAB PO SCH (08:39)
[2017-09-02] MEDS: Levemir Flexpen 100 UNITS/ML PEN SC SCH (08:39)
[2017-09-02] MEDS: Ascorbic Acid 500 mg Chewable Tablet PO SCH ×2 (08:39→16:57)
[2017-09-02] MEDS: metFORMIN 500 MG TAB PO SCH ×2 (08:39→20:57)
[2017-09-02] MEDS: HumaLOG 300 UNITS/3 ML VIAL SC PRN ×2 (08:40→12:42)
[2017-09-02] MEDS: Clotrimazole 1% Cream 15 GM TUBE TOP SCH ×2 (08:53→21:01)
--- NOTE | 2017-09-02 12:56 | PRG ---
DATE OF SERVICE: 09/02/2017 SUBJECTIVE: The patient indicates she is doing well. Nurses report no problem. She said her leg is not hurting her. She has been eating good and tolerating, sitting up in a bedside chair. OBJECTIVE: GENERAL: The patient is lying in bed with the head elevated. She has her left leg crossed over the right and she has her long leg knee immobilizer on. She looks very comfortable and in no distress. VITAL SIGNS: Show temperature 97, pulse 96, respirations 20, O2 sat 95%, blood pressure 130/62. LUNGS: Clear. HEART: Irregular regular rhythm with adequate ventricular response. EXTREMITIES: No edema. Right lower leg is externally rotated. She has a knee immobilizer on, and s eems very comfortable. LABORATORY DATA: FBS yesterday was 215. ASSESSMENT: 1. Generalized weakness. A. Secondary to a fall resulting in a closed fracture of the proximal tibia and fibula. B. Nonambulatory prior to fall secondary to previous cerebrovascular accident. C. Tolerating sitting up in a chair. Able to pivot for transfer, but requiring maximum assistance a s of 09/02/2017. 2. Closed oblique fracture of the right tibia and fibula at the junction of the proximal and middle third. A. Secondary to a fall on 08/17/2017. B. Managed nonoperatively due to her comorbidities and stroke leaving her paralyzed on the right lida e. C. Managed with a long leg knee immobilizer. D. Tolerating sitting up in a chair, comfortable as of 09/02/2017. 3. Status post cerebrovascular accident in 2000. A. Leaving patient with a right hemiparalysis, aphasia, and mild dysphagia. 4. Atrial fibrillation, chronic. A. Rate controlled as of 09/02/2017. B. Not a candidate for anticoagulation due to fall risk. 5. Seizure disorder, controlled. 6. Depression, controlled. 7. Diabetes, type 2. A. Hemoglobin A1c of 8.9 as of 08/22/2017. B. Receiving metformin, Levemir and a mild sliding scale. PLAN: Continue present care. Continue physical therapy.
[2017-09-02] MEDS: Magnesium Oxide 400 MG TAB PO SCH (20:57)
[2017-09-02] MEDS: Multivit, Therapeutic 1 TAB PO SCH (20:57)
[2017-09-03] MEDS: Acetaminophen 500 MG TAB PO SCH ×4 (05:25→22:18)
[2017-09-03] MEDS: Polyethylene Glycol 3350 17 GM Packet PO SCH (08:37)
[2017-09-03] MEDS: Enoxaparin Sodium 30 MG/0.3 ML SYRINGE SC SCH (08:37)
[2017-09-03] MEDS: Gabapentin 300 MG CAP PO SCH ×2 (08:38→20:31)
[2017-09-03] MEDS: Metoprolol Tartrate 25 MG TAB PO SCH ×2 (08:38→20:32)
[2017-09-03] MEDS: Famotidine 20 MG TAB PO SCH (08:38)
[2017-09-03] MEDS: Fluconazole 100 MG TAB PO SCH (08:38)
[2017-09-03] MEDS: Senokot S 8.6-50 MG TAB PO SCH ×2 (08:38→20:32)
[2017-09-03] MEDS: Levemir Flexpen 100 UNITS/ML PEN SC SCH (08:39)
[2017-09-03] MEDS: Ascorbic Acid 500 mg Chewable Tablet PO SCH ×2 (08:39→16:50)
[2017-09-03] MEDS: Ferrous Sulfate 325 MG TAB PO SCH ×2 (08:39→16:50)
[2017-09-03] MEDS: metFORMIN 500 MG TAB PO SCH ×2 (08:39→20:32)
[2017-09-03] MEDS: Clotrimazole 1% Cream 15 GM TUBE TOP SCH ×2 (08:52→20:31)
[2017-09-03] MEDS: Baclofen 10 MG TAB PO PRN (12:20)
[2017-09-03] MEDS: Magnesium Oxide 400 MG TAB PO SCH (20:32)
[2017-09-03] MEDS: Multivit, Therapeutic 1 TAB PO SCH (20:32)
[2017-09-04] MEDS: Acetaminophen 500 MG TAB PO SCH ×4 (06:09→22:14)
[2017-09-04] MEDS: Senokot S 8.6-50 MG TAB PO SCH ×2 (08:34→21:19)
[2017-09-04] MEDS: Famotidine 20 MG TAB PO SCH (08:34)
[2017-09-04] MEDS: Enoxaparin Sodium 30 MG/0.3 ML SYRINGE SC SCH (08:34)
[2017-09-04] MEDS: metFORMIN 500 MG TAB PO SCH ×2 (08:34→21:18)
[2017-09-04] MEDS: Ferrous Sulfate 325 MG TAB PO SCH ×2 (08:35→17:19)
[2017-09-04] MEDS: Gabapentin 300 MG CAP PO SCH ×2 (08:35→21:17)
[2017-09-04] MEDS: Fluconazole 100 MG TAB PO SCH (08:35)
[2017-09-04] MEDS: Ascorbic Acid 500 mg Chewable Tablet PO SCH ×2 (08:35→17:19)
[2017-09-04] MEDS: Metoprolol Tartrate 25 MG TAB PO SCH ×2 (08:35→21:18)
[2017-09-04] MEDS: Levemir Flexpen 100 UNITS/ML PEN SC SCH (08:36)
[2017-09-04] MEDS: Clotrimazole 1% Cream 15 GM TUBE TOP SCH ×2 (08:36→21:17)
[2017-09-04] MEDS: Baclofen 10 MG TAB PO PRN (08:39)
[2017-09-04] MEDS: Polyethylene Glycol 3350 17 GM Packet PO SCH (08:42)
[2017-09-04] MEDS: HumaLOG 300 UNITS/3 ML VIAL SC PRN (11:30)
[2017-09-04] MEDS: Magnesium Oxide 400 MG TAB PO SCH (21:17)
[2017-09-04] MEDS: Multivit, Therapeutic 1 TAB PO SCH (21:19)
[2017-09-05] MEDS: Acetaminophen 500 MG TAB PO SCH ×4 (05:31→22:19)
[2017-09-05] MEDS: HumaLOG 300 UNITS/3 ML VIAL SC PRN (08:09)
[2017-09-05] MEDS: Senokot S 8.6-50 MG TAB PO SCH ×2 (08:10→20:28)
[2017-09-05] MEDS: Levemir Flexpen 100 UNITS/ML PEN SC SCH (08:10)
[2017-09-05] MEDS: Ascorbic Acid 500 mg Chewable Tablet PO SCH ×2 (08:10→17:13)
[2017-09-05] MEDS: Enoxaparin Sodium 30 MG/0.3 ML SYRINGE SC SCH (08:10)
[2017-09-05] MEDS: Baclofen 10 MG TAB PO PRN (08:11)
[2017-09-05] MEDS: metFORMIN 500 MG TAB PO SCH ×2 (08:11→20:27)
[2017-09-05] MEDS: Polyethylene Glycol 3350 17 GM Packet PO SCH (08:11)
[2017-09-05] MEDS: Famotidine 20 MG TAB PO SCH (08:11)
[2017-09-05] MEDS: Gabapentin 300 MG CAP PO SCH ×2 (08:11→20:27)
[2017-09-05] MEDS: Metoprolol Tartrate 25 MG TAB PO SCH ×2 (08:11→20:27)
[2017-09-05] MEDS: Fluconazole 100 MG TAB PO SCH (08:11)
[2017-09-05] MEDS: Ferrous Sulfate 325 MG TAB PO SCH ×2 (08:11→17:13)
[2017-09-05] MEDS: Clotrimazole 1% Cream 15 GM TUBE TOP SCH ×2 (08:12→20:27)
--- NOTE | 2017-09-05 09:21 | PRG ---
DATE OF SERVICE: 09/05/2017 SUBJECTIVE: The patient indicates she is doing good this morning. Last evening during a bath the pa aakash rolled off the bed onto the floor. There was no hit on her head. There was no loss of conscio usness and she had no complaints. Nurses checked her over carefully and they did not find any obviou s injuries. Her right leg was in the knee immobilizer. This morning she does not complain of any pa in. OBJECTIVE: The patient is in bed, alert, and appears comfortable in no distress. She is aphasic. H er vital signs show a temperature 96.7, pulse 102, respirations 20, O2 sat 91% on room air, blood pre ssure 121/74. Her lungs were clear. Heart, regular rate. Chest wall nontender. Upper extremities showed no deformity or area of injury or areas of tenderness. Lower extremities; there is no bruisin g. The right lower leg is externally rotated since the fracture of the tibia. The knee immobilizer was undone and the leg inspected. All the bruising from the initial injury has resolved. There is n o swelling. There is no point tenderness. There is no ulceration on inspection and palpation. Ther e are no areas of point tenderness. ASSESSMENT: 1. Generalized weakness. A. Secondary to a fall resulting in a closed fracture of the proximal tibia and fibula. B. Nonambulatory prior to fall secondary to previous cerebrovascular accident. C. Tolerating sitting up in a chair. Able to pivot for transfer, but requiring maximum assistance a s of 09/05/2017. 2. Closed oblique fracture of the right tibia and fibula at the junction of the proximal and middle third. A. Secondary to a fall on 08/17/2017. B. Managed nonoperatively due to her comorbidities and stroke leaving her paralyzed on the right lida e. C. Managed with a long leg knee immobilizer. D. Tolerating sitting up in a chair, comfortable as of 09/02/2017. 3. Status post cerebrovascular accident in 2000. A. Leaving patient with a right hemiparalysis, aphasia, and mild dysphagia. 4. Atrial fibrillation, chronic. A. Rate controlled as of 09/02/2017. B. Not a candidate for anticoagulation due to fall risk. 5. Seizure disorder, controlled. 6. Depression, controlled. 7. Diabetes, type 2. A. Hemoglobin A1c of 8.9 as of 08/22/2017. B. Receiving metformin, Levemir and a mild sliding scale. PLAN: The patient does not have any obvious injury from the fall. Fall precautions are being taken, particularly during the bathing. We will continue physical therapy. We will continue her present c are.
[2017-09-05] MEDS: Magnesium Oxide 400 MG TAB PO SCH (20:27)
[2017-09-05] MEDS: Multivit, Therapeutic 1 TAB PO SCH (20:28)
[2017-09-06] MEDS: Acetaminophen 500 MG TAB PO SCH ×4 (05:34→22:41)
[2017-09-06] MEDS: Ferrous Sulfate 325 MG TAB PO SCH ×2 (08:39→16:34)
[2017-09-06] MEDS: Ascorbic Acid 500 mg Chewable Tablet PO SCH ×2 (08:39→16:34)
[2017-09-06] MEDS: Clotrimazole 1% Cream 15 GM TUBE TOP SCH ×2 (08:39→21:12)
[2017-09-06] MEDS: Famotidine 20 MG TAB PO SCH (08:40)
[2017-09-06] MEDS: Enoxaparin Sodium 30 MG/0.3 ML SYRINGE SC SCH (08:40)
[2017-09-06] MEDS: Fluconazole 100 MG TAB PO SCH (08:40)
[2017-09-06] MEDS: Levemir Flexpen 100 UNITS/ML PEN SC SCH (08:41)
[2017-09-06] MEDS: Gabapentin 300 MG CAP PO SCH ×2 (08:41→21:12)
[2017-09-06] MEDS: metFORMIN 500 MG TAB PO SCH ×2 (08:41→21:13)
[2017-09-06] MEDS: Metoprolol Tartrate 25 MG TAB PO SCH ×2 (08:41→21:13)
[2017-09-06] MEDS: Senokot S 8.6-50 MG TAB PO SCH ×2 (08:42→21:13)
[2017-09-06] MEDS: Polyethylene Glycol 3350 17 GM Packet PO SCH (08:42)
[2017-09-06] MEDS ORDERED: Levemir Flexpen 100 UNITS/ML PEN SC SCH (10:45)
[2017-09-06] MEDS: HumaLOG 300 UNITS/3 ML VIAL SC PRN (11:12)
--- NOTE | 2017-09-06 13:49 | PRG ---
DATE OF SERVICE: 09/06/2017 SUBJECTIVE: The patient said she is doing good. She has been eating well. She has been very comfor table. She is working with therapist. She has tolerated sitting up in a geriatric chair just fine. She has had no more falls. OBJECTIVE: The patient is sitting up in her geriatric chair, is alert, smiling, appears in no distre ss. Her vital signs show a temperature of 96.9, pulse 93, respirations 20, O2 sat 91% on room air, b lood pressure 114/55. Lungs are clear. Heart; irregularly irregular rhythm with adequate ventricula r response. Extremities, no edema. Right leg is externally rotated. The patient is wearing her kne e immobilizer. Her FBS this morning was 231, yesterday morning 217. ASSESSMENT: 1. Generalized weakness. A. Secondary to a fall resulting in a closed fracture of the proximal tibia and fibula. B. Nonambulatory prior to fall secondary to previous cerebrovascular accident. C. Tolerating sitting up in a chair. Able to pivot for transfer, but requiring maximum assistance a s of 09/06/2017. 2. Closed oblique fracture of the right tibia and fibula at the junction of the proximal and middle third. A. Secondary to a fall on 08/17/2017. B. Managed nonoperatively due to her comorbidities and stroke leaving her paralyzed on the right lida e. C. Managed with a long leg knee immobilizer. D. Tolerating sitting up in a chair, comfortable as of 09/06/2017. 3. Status post cerebrovascular accident in 2000. A. Leaving patient with a right hemiparalysis, aphasia, and mild dysphagia. 4. Atrial fibrillation, chronic. A. Rate controlled as of 09/02/2017. B. Not a candidate for anticoagulation due to fall risk. 5. Seizure disorder, controlled. 6. Depression, controlled. 7. Diabetes, type 2. A. Hemoglobin A1c of 8.9 as of 08/22/2017. B. Receiving metformin, Levemir and a mild sliding scale. C. Fasting blood sugars are still running around 200. PLAN: 1. Continue physical therapy. 2. Continue the metformin and sliding scale. We will increase her Levemir to 20 units.
[2017-09-06] MEDS: Magnesium Oxide 400 MG TAB PO SCH (21:13)
[2017-09-06] MEDS: Multivit, Therapeutic 1 TAB PO SCH (21:13)
[2017-09-07] MEDS: Acetaminophen 500 MG TAB PO SCH ×4 (05:33→23:15)
[2017-09-07] MEDS: Ferrous Sulfate 325 MG TAB PO SCH ×2 (08:33→16:38)
[2017-09-07] MEDS: Polyethylene Glycol 3350 17 GM Packet PO SCH (08:33)
[2017-09-07] MEDS: Metoprolol Tartrate 25 MG TAB PO SCH ×2 (08:33→20:38)
[2017-09-07] MEDS: Famotidine 20 MG TAB PO SCH (08:33)
[2017-09-07] MEDS: Enoxaparin Sodium 30 MG/0.3 ML SYRINGE SC SCH (08:33)
[2017-09-07] MEDS: Ascorbic Acid 500 mg Chewable Tablet PO SCH ×2 (08:34→16:39)
[2017-09-07] MEDS: Fluconazole 100 MG TAB PO SCH (08:34)
[2017-09-07] MEDS: Senokot S 8.6-50 MG TAB PO SCH ×2 (08:34→20:38)
[2017-09-07] MEDS: metFORMIN 500 MG TAB PO SCH ×2 (08:34→20:38)
[2017-09-07] MEDS: Levemir Flexpen 100 UNITS/ML PEN SC SCH (08:34)
[2017-09-07] MEDS: Gabapentin 300 MG CAP PO SCH ×2 (08:34→20:37)
[2017-09-07] MEDS: Clotrimazole 1% Cream 15 GM TUBE TOP SCH ×2 (08:35→20:37)
[2017-09-07] MEDS: Multivit, Therapeutic 1 TAB PO SCH (20:38)
[2017-09-07] MEDS: Magnesium Oxide 400 MG TAB PO SCH (20:38)
[2017-09-08] MEDS: Acetaminophen 500 MG TAB PO SCH ×4 (05:33→23:20)
[2017-09-08] MEDS: Polyethylene Glycol 3350 17 GM Packet PO SCH (08:07)
[2017-09-08] MEDS: Ferrous Sulfate 325 MG TAB PO SCH ×2 (08:08→17:01)
[2017-09-08] MEDS: Famotidine 20 MG TAB PO SCH (08:08)
[2017-09-08] MEDS: Metoprolol Tartrate 25 MG TAB PO SCH ×2 (08:08→20:13)
[2017-09-08] MEDS: Senokot S 8.6-50 MG TAB PO SCH ×2 (08:08→20:13)
[2017-09-08] MEDS: Gabapentin 300 MG CAP PO SCH ×2 (08:08→20:13)
[2017-09-08] MEDS: Fluconazole 100 MG TAB PO SCH (08:09)
[2017-09-08] MEDS: Ascorbic Acid 500 mg Chewable Tablet PO SCH ×2 (08:09→17:01)
[2017-09-08] MEDS: metFORMIN 500 MG TAB PO SCH ×2 (08:09→20:13)
[2017-09-08] MEDS: Enoxaparin Sodium 30 MG/0.3 ML SYRINGE SC SCH (08:09)
[2017-09-08] MEDS: Levemir Flexpen 100 UNITS/ML PEN SC SCH (08:09)
[2017-09-08] MEDS: Clotrimazole 1% Cream 15 GM TUBE TOP SCH ×2 (08:11→20:14)
[2017-09-08] MEDS: HumaLOG 300 UNITS/3 ML VIAL SC PRN ×2 (08:12→17:03)
[2017-09-08] MEDS: Baclofen 10 MG TAB PO PRN (17:24)
[2017-09-08] MEDS: Multivit, Therapeutic 1 TAB PO SCH (20:13)
[2017-09-08] MEDS: Magnesium Oxide 400 MG TAB PO SCH (20:13)
[2017-09-09] MEDS: Acetaminophen 500 MG TAB PO SCH ×4 (05:31→23:25)
[2017-09-09] MEDS: Ascorbic Acid 500 mg Chewable Tablet PO SCH ×2 (08:37→16:51)
[2017-09-09] MEDS: Clotrimazole 1% Cream 15 GM TUBE TOP SCH ×2 (08:37→21:01)
[2017-09-09] MEDS: Ferrous Sulfate 325 MG TAB PO SCH ×2 (08:37→16:51)
[2017-09-09] MEDS: Gabapentin 300 MG CAP PO SCH ×2 (08:38→20:20)
[2017-09-09] MEDS: Famotidine 20 MG TAB PO SCH (08:38)
[2017-09-09] MEDS: Fluconazole 100 MG TAB PO SCH (08:38)
[2017-09-09] MEDS: Enoxaparin Sodium 30 MG/0.3 ML SYRINGE SC SCH (08:38)
[2017-09-09] MEDS: Levemir Flexpen 100 UNITS/ML PEN SC SCH (08:39)
[2017-09-09] MEDS: Metoprolol Tartrate 25 MG TAB PO SCH ×2 (08:39→20:21)
[2017-09-09] MEDS: metFORMIN 500 MG TAB PO SCH ×2 (08:39→20:21)
[2017-09-09] MEDS: Polyethylene Glycol 3350 17 GM Packet PO SCH (08:39)
[2017-09-09] MEDS: Senokot S 8.6-50 MG TAB PO SCH ×2 (08:39→20:21)
--- NOTE | 2017-09-09 10:46 | PRG ---
DATE OF SERVICE: 09/09/2017 SUBJECTIVE: The patient has no complaints. Nurses report no problem. She is enjoying sitting up in her chair. This morning she was just waking up and has not gotten up yet. OBJECTIVE: The patient is waking up. She appears comfortable in no distress. Her temperature 97.7, pulse 99, respirations 18, O2 sat 96% on room air, blood pressure 141/63. Lungs were clear. Heart irregular regular rhythm. Lower extremities, there is no edema. Right leg externally rotated. Ther e is no bruising on the leg, nor swelling. Her FBS yesterday morning was 204, before lunch 100 and b efore supper 112. This morning's is pending. ASSESSMENT: 1. Generalized weakness. A. Secondary to a fall resulting in a closed fracture of the proximal tibia and fibula. B. Nonambulatory prior to fall secondary to previous cerebrovascular accident. C. Tolerating sitting up in a chair. Able to pivot for transfers as of 09/09/2017. 2. Closed oblique fracture of the right tibia and fibula at the junction of the proximal and middle third. A. Secondary to a fall on 08/17/2017. B. Managed nonoperatively due to her comorbidities and stroke leaving her paralyzed on the right lida e. C. Managed with a long leg knee immobilizer. D. Tolerating sitting up in a chair, comfortable as of 09/09/2017. 3. Status post cerebrovascular accident in 2000. A. Leaving patient with a right hemiparalysis, aphasia, and mild dysphagia. 4. Atrial fibrillation, chronic. A. Rate controlled as of 09/09/2017. B. Not a candidate for anticoagulation due to fall risk. 5. Seizure disorder, controlled. 6. Depression, controlled. 7. Diabetes, type 2. A. Hemoglobin A1c of 8.9 as of 08/22/2017. B. Receiving metformin, Levemir and a mild sliding scale. C. Fasting blood sugars are still running around 200. PLAN: Continue physical therapy.
[2017-09-09] MEDS: HumaLOG 300 UNITS/3 ML VIAL SC PRN (12:01)
[2017-09-09] MEDS: Multivit, Therapeutic 1 TAB PO SCH (20:20)
[2017-09-09] MEDS: Magnesium Oxide 400 MG TAB PO SCH (20:21)
[2017-09-10] MEDS: Acetaminophen 500 MG TAB PO SCH ×4 (05:40→23:05)
[2017-09-10] MEDS: Ferrous Sulfate 325 MG TAB PO SCH ×2 (08:17→16:20)
[2017-09-10] MEDS: Ascorbic Acid 500 mg Chewable Tablet PO SCH ×2 (08:17→16:20)
[2017-09-10] MEDS: Senokot S 8.6-50 MG TAB PO SCH ×2 (08:17→20:33)
[2017-09-10] MEDS: Gabapentin 300 MG CAP PO SCH ×2 (08:17→20:33)
[2017-09-10] MEDS: Enoxaparin Sodium 30 MG/0.3 ML SYRINGE SC SCH (08:17)
[2017-09-10] MEDS: metFORMIN 500 MG TAB PO SCH ×2 (08:17→20:33)
[2017-09-10] MEDS: Metoprolol Tartrate 25 MG TAB PO SCH ×2 (08:17→20:33)
[2017-09-10] MEDS: Famotidine 20 MG TAB PO SCH (08:17)
[2017-09-10] MEDS: Fluconazole 100 MG TAB PO SCH (08:17)
[2017-09-10] MEDS: Clotrimazole 1% Cream 15 GM TUBE TOP SCH ×2 (08:18→20:34)
[2017-09-10] MEDS: Levemir Flexpen 100 UNITS/ML PEN SC SCH (08:18)
[2017-09-10] MEDS: HumaLOG 300 UNITS/3 ML VIAL SC PRN ×2 (08:20→16:20)
[2017-09-10] MEDS: Polyethylene Glycol 3350 17 GM Packet PO SCH (08:27)
[2017-09-10] MEDS: Baclofen 10 MG TAB PO PRN (12:55)
[2017-09-10] MEDS: Magnesium Oxide 400 MG TAB PO SCH (20:33)
[2017-09-10] MEDS: Multivit, Therapeutic 1 TAB PO SCH (20:34)
[2017-09-11] MEDS: Acetaminophen 500 MG TAB PO SCH ×4 (05:33→23:55)
[2017-09-11] MEDS: Baclofen 10 MG TAB PO PRN ×2 (08:12→16:45)
[2017-09-11] MEDS: Levemir Flexpen 100 UNITS/ML PEN SC SCH (08:12)
[2017-09-11] MEDS: Senokot S 8.6-50 MG TAB PO SCH ×2 (08:13→20:20)
[2017-09-11] MEDS: Ferrous Sulfate 325 MG TAB PO SCH ×2 (08:13→16:45)
[2017-09-11] MEDS: Metoprolol Tartrate 25 MG TAB PO SCH ×2 (08:13→20:19)
[2017-09-11] MEDS: Ascorbic Acid 500 mg Chewable Tablet PO SCH ×2 (08:13→16:45)
[2017-09-11] MEDS: metFORMIN 500 MG TAB PO SCH ×2 (08:13→20:19)
[2017-09-11] MEDS: Gabapentin 300 MG CAP PO SCH ×2 (08:13→20:20)
[2017-09-11] MEDS: Polyethylene Glycol 3350 17 GM Packet PO SCH (08:13)
[2017-09-11] MEDS: Enoxaparin Sodium 30 MG/0.3 ML SYRINGE SC SCH (08:14)
[2017-09-11] MEDS: Clotrimazole 1% Cream 15 GM TUBE TOP SCH ×2 (08:14→20:18)
[2017-09-11] MEDS: Famotidine 20 MG TAB PO SCH (08:15)
[2017-09-11] MEDS: HumaLOG 300 UNITS/3 ML VIAL SC PRN ×2 (08:17→16:52)
--- NOTE | 2017-09-11 10:03 | PRG ---
DATE OF SERVICE: 09/11/2017 SUBJECTIVE: The patient has been eating good. She is doing very well, sitting up in a chair without any problem, transferring much easier, does not seem to be having any pain. OBJECTIVE: The patient is awake this morning, alert, cooperative, appears comfortable and in no dist ress. Her temperature is 98.4, pulse 113, earlier 103. Her respirations are 16, O2 sat 93% on room air, blood pressure 127/58. Lungs were clear. Heart; irregularly irregular rhythm. FBS yesterday m orning 109, this morning is pending. ASSESSMENT: 1. Generalized weakness. A. Secondary to a fall resulting in a closed fracture of the proximal tibia and fibula. B. Nonambulatory prior to fall secondary to previous cerebrovascular accident. C. Doing well, sitting up in a chair. Assisting more with transfers as of 09/11/2017. 2. Closed oblique fracture of the right tibia and fibula at the junction of the proximal and middle third. A. Secondary to a fall on 08/17/2017. B. Managed nonoperatively due to her comorbidities and stroke leaving her paralyzed on the right lida e. C. Managed with a long leg knee immobilizer. D. Tolerating sitting up in a chair, comfortable as of 09/11/2017. 3. Status post cerebrovascular accident in 2000. A. Leaving patient with a right hemiparalysis, aphasia, and mild dysphagia. 4. Atrial fibrillation, chronic. A. Rate running 103-113 and irregular as of 09/11/2017. B. Not a candidate for anticoagulation due to fall risk. 5. Seizure disorder, controlled. 6. Depression, controlled. 7. Diabetes, type 2. A. Hemoglobin A1c of 8.9 as of 08/22/2017. B. Receiving metformin, Levemir and a mild sliding scale. C. Fasting blood sugars are still running around 200. PLAN: Continue PT and OT, increase the metoprolol tartrate from 25-1/2 mg b.i.d. to 25 mg b.i.d.
[2017-09-11] MEDS: Magnesium Oxide 400 MG TAB PO SCH (20:19)
[2017-09-11] MEDS: Multivit, Therapeutic 1 TAB PO SCH (20:20)
[2017-09-12] MEDS: Acetaminophen 500 MG TAB PO SCH ×4 (05:35→23:00)
[2017-09-12] MEDS: Ascorbic Acid 500 mg Chewable Tablet PO SCH ×2 (08:20→17:05)
[2017-09-12] MEDS: Ferrous Sulfate 325 MG TAB PO SCH ×2 (08:20→17:05)
[2017-09-12] MEDS: Senokot S 8.6-50 MG TAB PO SCH ×2 (08:20→20:46)
[2017-09-12] MEDS: Enoxaparin Sodium 30 MG/0.3 ML SYRINGE SC SCH (08:20)
[2017-09-12] MEDS: Gabapentin 300 MG CAP PO SCH ×2 (08:20→20:47)
[2017-09-12] MEDS: Famotidine 20 MG TAB PO SCH (08:20)
[2017-09-12] MEDS: metFORMIN 500 MG TAB PO SCH ×2 (08:20→20:47)
[2017-09-12] MEDS: Metoprolol Tartrate 25 MG TAB PO SCH ×2 (08:21→20:47)
[2017-09-12] MEDS: HumaLOG 300 UNITS/3 ML VIAL SC PRN ×3 (08:21→19:02)
[2017-09-12] MEDS: Levemir Flexpen 100 UNITS/ML PEN SC SCH (08:21)
[2017-09-12] MEDS: Clotrimazole 1% Cream 15 GM TUBE TOP SCH ×2 (08:29→20:48)
[2017-09-12] MEDS: Polyethylene Glycol 3350 17 GM Packet PO SCH (08:29)
[2017-09-12] MEDS: Magnesium Oxide 400 MG TAB PO SCH (20:47)
[2017-09-12] MEDS: Multivit, Therapeutic 1 TAB PO SCH (20:47)
[2017-09-13] MEDS: Acetaminophen 500 MG TAB PO SCH ×5 (05:00→21:55)
[2017-09-13] MEDS: Ascorbic Acid 500 mg Chewable Tablet PO SCH ×2 (08:17→16:35)
[2017-09-13] MEDS: Enoxaparin Sodium 30 MG/0.3 ML SYRINGE SC SCH (08:18)
[2017-09-13] MEDS: Famotidine 20 MG TAB PO SCH (08:18)
[2017-09-13] MEDS: metFORMIN 500 MG TAB PO SCH ×2 (08:18→20:39)
[2017-09-13] MEDS: Gabapentin 300 MG CAP PO SCH ×2 (08:18→20:38)
[2017-09-13] MEDS: Metoprolol Tartrate 25 MG TAB PO SCH ×2 (08:18→20:39)
[2017-09-13] MEDS: Ferrous Sulfate 325 MG TAB PO SCH ×2 (08:18→16:35)
[2017-09-13] MEDS: Polyethylene Glycol 3350 17 GM Packet PO SCH (08:19)
[2017-09-13] MEDS: Senokot S 8.6-50 MG TAB PO SCH ×2 (08:19→20:38)
[2017-09-13] MEDS: Clotrimazole 1% Cream 15 GM TUBE TOP SCH ×2 (08:32→20:38)
[2017-09-13] MEDS: Levemir Flexpen 100 UNITS/ML PEN SC SCH (09:05)
--- NOTE | 2017-09-13 10:42 | PRG ---
DATE OF SERVICE: 09/13/2017 SUBJECTIVE: The patient has no complaint. Physical therapist said the patient is doing well. She i s tolerating sitting up in a chair and balances well in the chair. She is not able to bear any weigh t on the right leg and she does help with pivoting on transfers with the left, but still takes maximu m assist with this. OBJECTIVE: GENERAL: The patient is sitting up in a geriatric chair. She is alert, appears very comfortable and in no distress. VITAL SIGNS: Temperature 96.9, pulse 87, respirations 18, O2 sat 91% on room air, blood pressure 110 /58. LUNGS: Clear. HEART: Regular rate. EXTREMITIES: Right lower extremity, there is no edema. The patient is in the knee immobilizer in th e right leg. Her right leg is externally rotated unchanged from admission. LABORATORY DATA: Her FBS yesterday morning was 196, at bedtime 148. Fasting sugar today pending. ASSESSMENT: 1. Generalized weakness. A. Secondary to a fall resulting in a closed fracture of the proximal tibia and fibula. B. Nonambulatory prior to fall secondary to previous cerebrovascular accident. C. Doing well. Sitting up in a chair with good balance. Assisting with transfers with pivot on the left leg, but still requiring maximum assist as of 09/13/2017. 2. Closed oblique fracture of the right tibia and fibula at the junction of the proximal and middle third. A. Secondary to a fall on 08/17/2017. B. Managed nonoperatively due to her comorbidities and stroke leaving her paralyzed on the right lida e. C. Managed with a long leg knee immobilizer. D. Tolerating sitting up in a chair, comfortable as of 09/13/2017. 3. Status post cerebrovascular accident in 2000. A. Leaving patient with a right hemiparalysis, aphasia, and mild dysphagia. 4. Atrial fibrillation, chronic. A. Rate running 103-113 and irregular as of 09/11/2017. B. Not a candidate for anticoagulation due to fall risk. 5. Seizure disorder, controlled. 6. Depression, controlled. 7. Diabetes, type 2. A. Hemoglobin A1c of 8.9 as of 08/22/2017. B. Receiving metformin, Levemir and a mild sliding scale. C. Fasting blood sugars are still running around 200. PLAN: Continue present care. Continue physical therapy with more therapy that the patient will grad ually be able to assist more over transfer, which will allow much easier time for care in the home on ce up on her discharge.
[2017-09-13] MEDS: HumaLOG 300 UNITS/3 ML VIAL SC PRN (17:32)
[2017-09-13] MEDS: Multivit, Therapeutic 1 TAB PO SCH (20:39)
[2017-09-13] MEDS: Magnesium Oxide 400 MG TAB PO SCH (20:39)
[2017-09-14] MEDS: Acetaminophen 500 MG TAB PO SCH (05:18)
[2017-09-14] MEDS: Baclofen 10 MG TAB PO PRN (08:11)
[2017-09-14] MEDS: Famotidine 20 MG TAB PO SCH (08:11)
[2017-09-14] MEDS: Gabapentin 300 MG CAP PO SCH ×2 (08:12→20:40)
[2017-09-14] MEDS: Enoxaparin Sodium 30 MG/0.3 ML SYRINGE SC SCH (08:12)
[2017-09-14] MEDS: Ascorbic Acid 500 mg Chewable Tablet PO SCH ×2 (08:12→17:07)
[2017-09-14] MEDS: metFORMIN 500 MG TAB PO SCH ×2 (08:12→20:41)
[2017-09-14] MEDS: Metoprolol Tartrate 25 MG TAB PO SCH ×2 (08:12→20:40)
[2017-09-14] MEDS: Polyethylene Glycol 3350 17 GM Packet PO SCH (08:13)
[2017-09-14] MEDS: Ferrous Sulfate 325 MG TAB PO SCH ×2 (08:13→17:08)
[2017-09-14] MEDS: Clotrimazole 1% Cream 15 GM TUBE TOP SCH ×2 (08:13→20:42)
[2017-09-14] MEDS: Levemir Flexpen 100 UNITS/ML PEN SC SCH (08:13)
[2017-09-14] MEDS: Senokot S 8.6-50 MG TAB PO SCH ×2 (08:14→20:40)
[2017-09-14] MEDS: HumaLOG 300 UNITS/3 ML VIAL SC PRN (10:58)
[2017-09-14] MEDS: Acetaminophen 325 MG TAB PO PRN (20:40)
[2017-09-14] MEDS: Multivit, Therapeutic 1 TAB PO SCH (20:41)
[2017-09-14] MEDS: Magnesium Oxide 400 MG TAB PO SCH (20:41)
[2017-09-15] MEDS: Polyethylene Glycol 3350 17 GM Packet PO SCH (07:57)
[2017-09-15] MEDS: Enoxaparin Sodium 30 MG/0.3 ML SYRINGE SC SCH (07:58)
[2017-09-15] MEDS: Ferrous Sulfate 325 MG TAB PO SCH ×2 (07:58→16:17)
[2017-09-15] MEDS: Ascorbic Acid 500 mg Chewable Tablet PO SCH ×2 (07:58→16:15)
[2017-09-15] MEDS: Metoprolol Tartrate 25 MG TAB PO SCH ×2 (07:58→20:16)
[2017-09-15] MEDS: Senokot S 8.6-50 MG TAB PO SCH ×2 (07:58→20:15)
[2017-09-15] MEDS: Famotidine 20 MG TAB PO SCH (07:58)
[2017-09-15] MEDS: Gabapentin 300 MG CAP PO SCH ×2 (07:58→20:15)
[2017-09-15] MEDS: Levemir Flexpen 100 UNITS/ML PEN SC SCH (07:59)
[2017-09-15] MEDS: HumaLOG 300 UNITS/3 ML VIAL SC PRN ×2 (07:59→11:31)
[2017-09-15] MEDS: Clotrimazole 1% Cream 15 GM TUBE TOP SCH ×2 (08:00→20:16)
[2017-09-15] MEDS: metFORMIN 500 MG TAB PO SCH ×2 (08:00→20:16)
[2017-09-15] MEDS: Acetaminophen 325 MG TAB PO PRN ×2 (08:12→16:15)
[2017-09-15] MEDS: Baclofen 10 MG TAB PO PRN ×2 (08:12→16:15)
[2017-09-15] MEDS: Multivit, Therapeutic 1 TAB PO SCH (20:15)
[2017-09-15] MEDS: Magnesium Oxide 400 MG TAB PO SCH (20:16)
[2017-09-16] MEDS: Ferrous Sulfate 325 MG TAB PO SCH ×2 (08:02→17:03)
[2017-09-16] MEDS: Ascorbic Acid 500 mg Chewable Tablet PO SCH ×2 (08:02→17:03)
[2017-09-16] MEDS: Famotidine 20 MG TAB PO SCH (08:03)
[2017-09-16] MEDS: Clotrimazole 1% Cream 15 GM TUBE TOP SCH ×2 (08:03→20:26)
[2017-09-16] MEDS: Enoxaparin Sodium 30 MG/0.3 ML SYRINGE SC SCH (08:03)
[2017-09-16] MEDS: Gabapentin 300 MG CAP PO SCH ×2 (08:04→20:26)
[2017-09-16] MEDS: metFORMIN 500 MG TAB PO SCH ×2 (08:04→20:26)
[2017-09-16] MEDS: Levemir Flexpen 100 UNITS/ML PEN SC SCH (08:04)
[2017-09-16] MEDS: HumaLOG 300 UNITS/3 ML VIAL SC PRN ×3 (08:05→17:03)
[2017-09-16] MEDS: Metoprolol Tartrate 25 MG TAB PO SCH ×2 (08:05→20:26)
[2017-09-16] MEDS: Senokot S 8.6-50 MG TAB PO SCH ×2 (08:05→20:26)
[2017-09-16] MEDS: Polyethylene Glycol 3350 17 GM Packet PO SCH (08:05)
--- NOTE | 2017-09-16 09:04 | PRG ---
DATE OF SERVICE: 09/16/2017 SUBJECTIVE: The patient has been doing well. She has had no falls. She is tolerating sitting up in the chair without any troubles. She is eating well. She is taking her Tylenol on a p.r.n. basis no w instead of scheduled and seems to be doing well with this. OBJECTIVE: The patient is sitting up in a chair. She is alert, appears in no distress. Temp 97, pu lse 108, respirations 20, O2 sat 92% on room air, blood pressure 120/57. Lungs are clear. Heart; ir regularly irregular rhythm. Extremities, no edema. Right lower leg externally rotated approximately 90 degrees. ASSESSMENT: 1. Generalized weakness. A. Secondary to a fall resulting in a closed fracture of the proximal tibia and fibula. B. Nonambulatory prior to fall secondary to previous cerebrovascular accident. C. Doing well. Sitting up in a chair with good balance. Assisting with transfers with pivot on the left leg, but still requiring maximum assist as of 09/16/2017. 2. Closed oblique fracture of the right tibia and fibula at the junction of the proximal and middle third. A. Secondary to a fall on 08/17/2017. B. Managed nonoperatively due to her comorbidities and stroke leaving her paralyzed on the right lida e. C. Managed with a long leg knee immobilizer. D. Tolerating sitting up in a chair, comfortable as of 09/16/2017. 3. Status post cerebrovascular accident in 2000. A. Leaving patient with a right hemiparalysis, aphasia, and mild dysphagia. 4. Atrial fibrillation, chronic. A. Rate running 103-113 and irregular as of 09/16/2017. B. Not a candidate for anticoagulation due to fall risk. 5. Seizure disorder, controlled. 6. Depression, controlled. 7. Diabetes, type 2. A. Hemoglobin A1c of 8.9 as of 08/22/2017. B. Receiving metformin, Levemir and a mild sliding scale. C. Fasting blood sugars are still running around 200. PLAN: Continue present care. Once patient is able to more easily transfer, feel like the family suhail l be able to manage her back in the home. We will see how this week goes for the patient.
[2017-09-16] MEDS: Multivit, Therapeutic 1 TAB PO SCH (20:26)
[2017-09-16] MEDS: Magnesium Oxide 400 MG TAB PO SCH (20:26)
[2017-09-17] MEDS: Senokot S 8.6-50 MG TAB PO SCH ×2 (08:35→20:41)
[2017-09-17] MEDS: Enoxaparin Sodium 30 MG/0.3 ML SYRINGE SC SCH (08:35)
[2017-09-17] MEDS: metFORMIN 500 MG TAB PO SCH ×2 (08:35→20:40)
[2017-09-17] MEDS: Famotidine 20 MG TAB PO SCH (08:35)
[2017-09-17] MEDS: Polyethylene Glycol 3350 17 GM Packet PO SCH (08:35)
[2017-09-17] MEDS: Ferrous Sulfate 325 MG TAB PO SCH ×2 (08:36→17:08)
[2017-09-17] MEDS: Ascorbic Acid 500 mg Chewable Tablet PO SCH ×2 (08:36→17:08)
[2017-09-17] MEDS: Metoprolol Tartrate 25 MG TAB PO SCH ×2 (08:36→20:40)
[2017-09-17] MEDS: Gabapentin 300 MG CAP PO SCH ×2 (08:36→20:40)
[2017-09-17] MEDS: Baclofen 10 MG TAB PO PRN ×2 (08:39→17:08)
[2017-09-17] MEDS: Levemir Flexpen 100 UNITS/ML PEN SC SCH (08:39)
[2017-09-17] MEDS: Clotrimazole 1% Cream 15 GM TUBE TOP SCH ×2 (08:39→20:39)
[2017-09-17] MEDS: HumaLOG 300 UNITS/3 ML VIAL SC PRN (12:04)
[2017-09-17] MEDS: Magnesium Oxide 400 MG TAB PO SCH (20:40)
[2017-09-17] MEDS: Multivit, Therapeutic 1 TAB PO SCH (20:40)
[2017-09-18] MEDS: Famotidine 20 MG TAB PO SCH (08:11)
[2017-09-18] MEDS: Ascorbic Acid 500 mg Chewable Tablet PO SCH ×2 (08:11→16:35)
[2017-09-18] MEDS: Ferrous Sulfate 325 MG TAB PO SCH ×2 (08:11→16:35)
[2017-09-18] MEDS: Gabapentin 300 MG CAP PO SCH ×2 (08:11→20:45)
[2017-09-18] MEDS: Acetaminophen 325 MG TAB PO PRN ×2 (08:11→16:34)
[2017-09-18] MEDS: Levemir Flexpen 100 UNITS/ML PEN SC SCH (08:11)
[2017-09-18] MEDS: Baclofen 10 MG TAB PO PRN ×2 (08:11→16:35)
[2017-09-18] MEDS: metFORMIN 500 MG TAB PO SCH ×2 (08:12→20:45)
[2017-09-18] MEDS: HumaLOG 300 UNITS/3 ML VIAL SC PRN ×2 (08:12→16:35)
[2017-09-18] MEDS: Metoprolol Tartrate 25 MG TAB PO SCH ×2 (08:12→20:45)
[2017-09-18] MEDS: Senokot S 8.6-50 MG TAB PO SCH ×2 (08:13→20:45)
[2017-09-18] MEDS: Polyethylene Glycol 3350 17 GM Packet PO SCH (08:13)
[2017-09-18] MEDS: Enoxaparin Sodium 30 MG/0.3 ML SYRINGE SC SCH (08:14)
[2017-09-18] MEDS: Clotrimazole 1% Cream 15 GM TUBE TOP SCH ×2 (08:15→20:46)
--- NOTE | 2017-09-18 09:20 | PRG ---
DATE OF SERVICE: 09/18/2017 SUBJECTIVE: The patient has been doing well. She is eating good. She has had no seizures. She did not complain of any pain in her legs. She is still wearing the knee immobilizer. She still require s maximum assist with transfer from bed to a chair and reverse. OBJECTIVE: The patient is sitting on the edge the bed, preparing to be transferred into a chair. Fabiano field is alert, appears comfortable in no distress. Her vital signs show a temperature 97.8, pulse 101, respirations 20, O2 sat 95% on room air, blood pressure 119/65. Lungs are clear. Heart irregular re gular rhythm. Lower extremities, no edema. Right leg externally rotated about 90 degrees. The luisana ent still has a long leg knee immobilizer own. Her FBS this morning was 209, yesterday morning it wa s 124. ASSESSMENT: 1. Generalized weakness. A. Secondary to a fall resulting in a closed fracture of the proximal tibia and fibula. B. Nonambulatory prior to fall secondary to previous cerebrovascular accident. C. Doing well. Sitting up in a chair with good balance. Assisting with transfers with pivot on the left leg, but still requiring maximum assist as of 09/18/2017. 2. Closed oblique fracture of the right tibia and fibula at the junction of the proximal and middle third. A. Secondary to a fall on 08/17/2017. B. Managed nonoperatively due to her comorbidities and stroke leaving her paralyzed on the right lida e. C. Managed with a long leg knee immobilizer. D. Tolerating sitting up in a chair, comfortable as of 09/18/2017. 3. Status post cerebrovascular accident in 2000. A. Leaving patient with a right hemiparalysis, aphasia, and mild dysphagia. 4. Atrial fibrillation, chronic. A. Rate running 103-113 and irregular as of 09/16/2017. B. Not a candidate for anticoagulation due to fall risk. 5. Seizure disorder, controlled. 6. Depression, controlled. 7. Diabetes, type 2. A. Hemoglobin A1c of 8.9 as of 08/22/2017. B. Receiving metformin, Levemir and a mild sliding scale. C. FBS 209. PLAN: Overall, the patient is doing better. Her pain seemed to be well managed. She is tolerating sitting up in a chair well, but still requires maximum assistance with any transfers. We will contin ue present efforts and physical therapy.
[2017-09-18] MEDS: Multivit, Therapeutic 1 TAB PO SCH (20:45)
[2017-09-18] MEDS: Magnesium Oxide 400 MG TAB PO SCH (20:45)
[2017-09-19] MEDS: Ascorbic Acid 500 mg Chewable Tablet PO SCH ×2 (08:26→16:24)
[2017-09-19] MEDS: Ferrous Sulfate 325 MG TAB PO SCH ×2 (08:26→16:24)
[2017-09-19] MEDS: Clotrimazole 1% Cream 15 GM TUBE TOP SCH ×2 (08:28→20:24)
[2017-09-19] MEDS: Famotidine 20 MG TAB PO SCH (08:29)
[2017-09-19] MEDS: Enoxaparin Sodium 30 MG/0.3 ML SYRINGE SC SCH (08:29)
[2017-09-19] MEDS: Gabapentin 300 MG CAP PO SCH ×2 (08:29→20:23)
[2017-09-19] MEDS: metFORMIN 500 MG TAB PO SCH ×2 (08:30→20:24)
[2017-09-19] MEDS: Levemir Flexpen 100 UNITS/ML PEN SC SCH (08:30)
[2017-09-19] MEDS: Polyethylene Glycol 3350 17 GM Packet PO SCH (08:30)
[2017-09-19] MEDS: Metoprolol Tartrate 25 MG TAB PO SCH ×2 (08:30→20:24)
[2017-09-19] MEDS: Senokot S 8.6-50 MG TAB PO SCH ×2 (08:31→20:23)
[2017-09-19] MEDS: HumaLOG 300 UNITS/3 ML VIAL SC PRN ×2 (08:34→11:39)
[2017-09-19] MEDS: Magnesium Oxide 400 MG TAB PO SCH (20:23)
[2017-09-19] MEDS: Multivit, Therapeutic 1 TAB PO SCH (20:23)
[2017-09-20 05:34] LABS: Anion Gap 14 mmol/L (10-20); BUN (Urea Nitrogen) 28 mg/dL (9.8-20.1); Calc. Creatinine Clearance 49 mL/min (70-130); Calcium 8.9 mg/dL (7.8-10.44); Carbon Dioxide 25 mmol/L (23-31); Chloride 107 mmol/L (98-107); Estimated GFR-MDRD 49; Glucose 111 mg/dL (83-110); Potassium 4.4 mmol/L (3.5-5.1); Sodium 142 mmol/L (136-145)
[2017-09-20 05:39] LABS: Anisocytosis MODERATE=16-30 cells (100X) (0-5/hpf); Eosinophils 4 % (0-10); Hemoglobin 8.8 g/dL (12.0-16.0); Hypochromia MODERATE=16-30 cells (100X) (0-5/hpf); Lymphocytes 23 % (21-51); MDiff Complete? YES; Mean Corpuscular HGB CONC 30.6 g/dL (32.0-36.0); Mean Corpuscular Hemoglobin 25.3 pg (27.0-31.0); Mean Corpuscular Volume 82.7 fl (81.0-99.0); Mean Platelet Volume 5.9 fL (7.4-10.4); Monocytes 16 % (0-10); Neutrophil 56 % (42-75); PLT Morphology Comment Appears Adequate; Platelet Count 388 thou/uL (130-400); Poikilocytosis MODERATE=16-30 cells (100X) (0-5/hpf); RBC Distribution Width 24.7 % (11.5-14.5); RBC Morphology Abnormal; Red Blood Cell (RBC) Count 3.38 mill/uL (4.20-5.40); White Blood Cell (WBC) Count 7.8 thou/uL (4.8-10.8)
[2017-09-20] MEDS: Ferrous Sulfate 325 MG TAB PO SCH ×2 (07:16→16:38)
[2017-09-20] MEDS: Ascorbic Acid 500 mg Chewable Tablet PO SCH ×2 (07:17→16:38)
[2017-09-20] MEDS: HumaLOG 300 UNITS/3 ML VIAL SC PRN ×2 (08:04→11:53)
[2017-09-20] MEDS: Enoxaparin Sodium 30 MG/0.3 ML SYRINGE SC SCH (08:10)
[2017-09-20] MEDS: Levemir Flexpen 100 UNITS/ML PEN SC SCH (08:10)
[2017-09-20] MEDS: Polyethylene Glycol 3350 17 GM Packet PO SCH (08:11)
[2017-09-20] MEDS: Senokot S 8.6-50 MG TAB PO SCH ×2 (08:12→20:13)
[2017-09-20] MEDS: Famotidine 20 MG TAB PO SCH (08:12)
[2017-09-20] MEDS: Metoprolol Tartrate 25 MG TAB PO SCH ×2 (08:12→20:13)
[2017-09-20] MEDS: Gabapentin 300 MG CAP PO SCH ×2 (08:13→20:13)
[2017-09-20] MEDS: metFORMIN 500 MG TAB PO SCH ×2 (08:13→20:13)
[2017-09-20] MEDS: Clotrimazole 1% Cream 15 GM TUBE TOP SCH ×2 (08:13→20:15)
--- NOTE | 2017-09-20 13:16 | RAD ---
RIGHT TIBIA AND FIBULAR TWO VIEWS: HISTORY: Fractures of the right tibia and fibula. COMPARISON: 08/17/2017 FINDINGS: Mildly displaced fractures of the proximal shafts of the tibia and fibula are again seen without sign ificant interval healing. Postop changes and metallic hardware in the distal fibula and tibia is red emonstrated. POS: [facility]
[2017-09-20] MEDS: Multivit, Therapeutic 1 TAB PO SCH (20:13)
[2017-09-20] MEDS: Magnesium Oxide 400 MG TAB PO SCH (20:13)
[2017-09-21] MEDS: Polyethylene Glycol 3350 17 GM Packet PO SCH (08:05)
[2017-09-21] MEDS: Levemir Flexpen 100 UNITS/ML PEN SC SCH (08:05)
[2017-09-21] MEDS: Senokot S 8.6-50 MG TAB PO SCH ×2 (08:06→21:00)
[2017-09-21] MEDS: Gabapentin 300 MG CAP PO SCH ×2 (08:07→20:59)
[2017-09-21] MEDS: Ferrous Sulfate 325 MG TAB PO SCH ×2 (08:07→16:49)
[2017-09-21] MEDS: Baclofen 10 MG TAB PO PRN ×2 (08:07→16:49)
[2017-09-21] MEDS: Ascorbic Acid 500 mg Chewable Tablet PO SCH ×2 (08:07→16:49)
[2017-09-21] MEDS: Metoprolol Tartrate 25 MG TAB PO SCH ×2 (08:07→20:59)
[2017-09-21] MEDS: Acetaminophen 325 MG TAB PO PRN ×2 (08:07→16:49)
[2017-09-21] MEDS: Enoxaparin Sodium 30 MG/0.3 ML SYRINGE SC SCH (08:08)
[2017-09-21] MEDS: Clotrimazole 1% Cream 15 GM TUBE TOP SCH ×2 (08:08→20:59)
[2017-09-21] MEDS: metFORMIN 500 MG TAB PO SCH ×2 (08:08→20:59)
[2017-09-21] MEDS: Famotidine 20 MG TAB PO SCH (08:08)
--- NOTE | 2017-09-21 11:31 | PRG ---
DATE OF SERVICE: 09/20/2017 SUBJECTIVE: The patient has no complaints. Nurses report no problem. Physical therapist said the p atient does well in a chair, but still has maximum assist with transfer. OBJECTIVE: GENERAL: The patient is sitting up in a chair. She is alert and appears comfortable and in no distr ess. VITAL SIGNS: Her temperature is 98.5, pulse 106, respirations 18, O2 sat 92% on room air, and blood pressure 111/66. LUNGS: Clear. HEART: Regular rate. EXTREMITIES: No edema. Right lower leg looks unchanged, remains rotated approximately 90 degrees ex ternally. There is no edema, no bruising. LABORATORY DATA: Her H&H is 8.8 and 28.8. White cell count 7800 with 56% segs, 23% lymphocytes, and a platelet count of 388. Sodium 142, potassium 4.4, BUN 28, creatinine 1.06, GFR 49, glucose 111. ASSESSMENT: 1. . A. Secondary to a fall resulting in a closed fracture of the proximal tibia and fibula. B. Nonambulatory prior to fall secondary to previous cerebrovascular accident. C. Doing well. Sitting up in a chair with good balance. Assisting with transfers with pivot on the left leg, but still requiring maximum assist as of 09/20/2017. 2. Closed oblique fracture of the right tibia and fibula at the junction of the proximal and middle third. A. Secondary to a fall on 08/17/2017. B. Managed nonoperatively due to her comorbidities and stroke leaving her paralyzed on the right lida e. C. Managed with a long leg knee immobilizer. D. Tolerating sitting up in a chair, comfortable as of 09/20/2017. 3. Status post cerebrovascular accident in 2000. A. Leaving patient with a right hemiparalysis, aphasia, and mild dysphagia. 4. Atrial fibrillation, chronic. A. Rate running 103-113 and irregular as of 09/20/2017. B. Not a candidate for anticoagulation due to fall risk. 5. Seizure disorder, controlled. 6. Depression, controlled. 7. Diabetes, type 2. A. Hemoglobin A1c of 8.9 as of 08/22/2017. B. Receiving metformin, Levemir and a mild sliding scale. C. FBS 209. on 09/20/2017. 8. Chronic anemia. A. Hemoglobin 8.8 as of 09/20/2017. PLAN: Continue present care. Continue physical therapy. Yesterday, I had a long visit with her son , Juan. He said at home, his sister, Silvia, was taking care of her and they were able to manage he r because she was able to assist with transfer. Right now she is still requiring maximum assist with transfers, if this does not improve, unsure if they will be able to provide adequate care in the [facility]. For now, we will continue the physical therapy and see if she slowly progress, it has been 2 favian hs since her fall and fracture. We will re-x-ray the leg and see what the fracture site looks like.
[2017-09-21] MEDS: HumaLOG 300 UNITS/3 ML VIAL SC PRN (12:18)
[2017-09-21] MEDS: Magnesium Oxide 400 MG TAB PO SCH (20:59)
[2017-09-21] MEDS: Multivit, Therapeutic 1 TAB PO SCH (20:59)
[2017-09-22] MEDS: Acetaminophen 325 MG TAB PO PRN ×2 (03:36→12:20)
[2017-09-22] MEDS: Baclofen 10 MG TAB PO PRN ×3 (03:36→23:00)
[2017-09-22 05:56] LABS: Anion Gap 17 mmol/L (10-20); BUN (Urea Nitrogen) 26 mg/dL (9.8-20.1); Calc. Creatinine Clearance 50 mL/min (70-130); Calcium 8.9 mg/dL (7.8-10.44); Carbon Dioxide 23 mmol/L (23-31); Chloride 105 mmol/L (98-107); Estimated GFR-MDRD 50; Sodium 140 mmol/L (136-145)
[2017-09-22 05:59] LABS: Glucose 170 mg/dL (83-110); Hemoglobin 9.8 g/dL (12.0-16.0); Mean Corpuscular HGB CONC 31.3 g/dL (32.0-36.0); Mean Corpuscular Hemoglobin 25.9 pg (27.0-31.0); Mean Corpuscular Volume 82.7 fl (81.0-99.0); Mean Platelet Volume 5.5 fL (7.4-10.4); Platelet Count 385 thou/uL (130-400); RBC Distribution Width 24.4 % (11.5-14.5); Red Blood Cell (RBC) Count 3.78 mill/uL (4.20-5.40); White Blood Cell (WBC) Count 9.6 thou/uL (4.8-10.8)
[2017-09-22 05:59] LABS: Bilirubin Negative (Negative); Blood, Urine Small (Negative); Clarity Slightly Cloudy (Clear); Glucose, Urine (Dipstick) Negative (Negative); Leukocyte Small (Negative); Nitrite Positive (Negative); Protein, Urine (Dipstick) 30 mg/dL (Neg-Trace); Specific Gravity, Urine 1.015 (1.005-1.030); Urobilinogen 0.2 mg/dL (0.2-1.0)
[2017-09-22 06:01] LABS: Bacteria/HPF 4+ HPF (None Seen); Renal Epithelial 0-3 HPF (0-3); Squamous Epithelial 0-3 HPF (0-3); Transitional Epithelial 0-3 HPF (0-3); WBC/HPF 21-50 HPF (0-3)
[2017-09-22 06:02] LABS: Eosinophils 4 % (0-10); MDiff Complete? YES
[2017-09-22 06:03] LABS: Lymphocytes 21 % (21-51); Monocytes 6 % (0-10)
[2017-09-22 06:04] LABS: Anisocytosis SLIGHT = 6-15 cells (100X) (0-5/hpf); Band 9 % (5-11); Delete Auto Diff?? YES; Hypochromia MODERATE=16-30 cells (100X) (0-5/hpf); Metamyelocyte 2 % (0-0); Neutrophil 58 % (42-75)
[2017-09-22] MEDS: Famotidine 20 MG TAB PO SCH (08:13)
[2017-09-22] MEDS: Ferrous Sulfate 325 MG TAB PO SCH ×2 (08:13→17:12)
[2017-09-22] MEDS: Gabapentin 300 MG CAP PO SCH ×2 (08:13→20:39)
[2017-09-22] MEDS: Senokot S 8.6-50 MG TAB PO SCH ×2 (08:14→20:40)
[2017-09-22] MEDS: Metoprolol Tartrate 25 MG TAB PO SCH ×2 (08:14→20:40)
[2017-09-22] MEDS: metFORMIN 500 MG TAB PO SCH ×2 (08:14→20:40)
[2017-09-22] MEDS: Ascorbic Acid 500 mg Chewable Tablet PO SCH ×2 (08:15→17:11)
[2017-09-22] MEDS: Enoxaparin Sodium 30 MG/0.3 ML SYRINGE SC SCH (08:15)
[2017-09-22] MEDS: Clotrimazole 1% Cream 15 GM TUBE TOP SCH ×2 (08:15→20:41)
[2017-09-22] MEDS: Polyethylene Glycol 3350 17 GM Packet PO SCH (08:16)
[2017-09-22] MEDS: HumaLOG 300 UNITS/3 ML VIAL SC PRN ×3 (08:16→17:12)
[2017-09-22] MEDS: Levemir Flexpen 100 UNITS/ML PEN SC SCH (08:18)
[2017-09-22] MEDS ORDERED: Furosemide 40 MG/4 ML VIAL SLOW IVP SCH (09:42)
--- NOTE | 2017-09-22 10:03 | RAD ---
PORTABLE CHEST: Date: 09/22/17 HISTORY: Wheezing, shortness of breath, dyspnea. COMPARISON: 08/18/17 study. FINDINGS: Heart size appears borderline in size. There are atherosclerotic changes of the aorta. Pulmonary vess els are engorged. Interstitial markings are increased consistent with some edema change. Bones are de mineralized. IMPRESSION: Pulmonary edema changes. POS: [facility]
--- NOTE | 2017-09-22 11:23 | PRG ---
DATE OF SERVICE: 09/22/2017 SUBJECTIVE: During the night, the patient developed a temperature of 102. Nurses said she has had a productive cough. She has had blood work drawn, blood cultures drawn beside, initiated and has rece ived an initial dose of Rocephin 500 mg IV. She has not had any subsequent fever. OBJECTIVE: GENERAL: The patient is sitting upright in bed. She was sleeping, but was easily aroused. She has a productive cough, but does not appear to be in any acute distress. VITAL SIGNS: Her temperature is 98.3, pulse 107, respirations 20, O2 sat 95% on room air, blood pre ssure 111/58. LUNGS: The patient has good breath sounds with rales at the posterior bases and expiratory wheezes. HEART: Regular rate. EXTREMITIES: No edema. LABORATORY DATA AND X-RAY FINDINGS: Shows the following, CBC shows an H&H of 9.8 and 31.3, white niles l count 9600 with 58% segs, 9% bands, 21% lymphocytes, and a platelet count of 385. Sodium 140, pota ssium 4, BUN 26, creatinine 1.05, GFR 50, glucose 170. In and out catheterization showed a specific gravity of 1.015, nitrite positive, 7-10 RBCs, 21-50 WBCs, 0-3 epithelials cells. The patient's ches t x-ray shows pulmonary vascular congestion. There is some fluid in the major fissure. There is leonid e blunting of the left costophrenic angle and there is some borderline cardiomegaly. ASSESSMENT: 1. Asthmatic bronchitis. 2. Congestive heart failure. 3. Possible urinary tract infection. PLAN: Blood cultures have been drawn. The patient has been started on IV antibiotics, using Levaqui n, which should give adequate coverage for the respiratory infection and the urinary tract infection. We will start the patient on Lasix 40 mg IV daily. Continue neb treatments.
[2017-09-22] MEDS: Multivit, Therapeutic 1 TAB PO SCH (20:40)
[2017-09-22] MEDS: Magnesium Oxide 400 MG TAB PO SCH (20:40)
[2017-09-23 05:33] LABS: Hemoglobin 9.4 g/dL (12.0-16.0); Mean Corpuscular HGB CONC 31.4 g/dL (32.0-36.0); Mean Corpuscular Hemoglobin 25.6 pg (27.0-31.0); Mean Corpuscular Volume 81.4 fl (81.0-99.0); Mean Platelet Volume 5.7 fL (7.4-10.4); Platelet Count 372 thou/uL (130-400); RBC Distribution Width 24.1 % (11.5-14.5); Red Blood Cell (RBC) Count 3.66 mill/uL (4.20-5.40); White Blood Cell (WBC) Count 7.9 thou/uL (4.8-10.8)
[2017-09-23 05:41] LABS: Band 11 % (5-11); Eosinophils 8 % (0-10); Lymphocytes 20 % (21-51); MDiff Complete? YES; Monocytes 8 % (0-10); Myelocyte 4 % (0-0); Reactive Lymphocytes 2 % (0-10)
[2017-09-23 05:42] LABS: Blast 2 % (0-0); Metamyelocyte 5 % (0-0)
[2017-09-23 05:43] LABS: Anion Gap 18 mmol/L (10-20); BUN (Urea Nitrogen) 33 mg/dL (9.8-20.1); Calc. Creatinine Clearance 41 mL/min (70-130); Calcium 9.2 mg/dL (7.8-10.44); Carbon Dioxide 25 mmol/L (23-31); Chloride 106 mmol/L (98-107); Estimated GFR-MDRD 40; Glucose 88 mg/dL (83-110); Potassium 4.6 mmol/L (3.5-5.1); Sodium 144 mmol/L (136-145)
[2017-09-23 05:44] LABS: Promyelocytes 2 % (0-0)
[2017-09-23 05:46] LABS: Anisocytosis SLIGHT = 6-15 cells (100X) (0-5/hpf); Hypochromia MODERATE=16-30 cells (100X) (0-5/hpf); Neutrophil 36 % (42-75)
[2017-09-23] MEDS: Senokot S 8.6-50 MG TAB PO SCH ×2 (08:19→20:14)
[2017-09-23] MEDS: Ferrous Sulfate 325 MG TAB PO SCH ×2 (08:19→17:06)
[2017-09-23] MEDS: Acetaminophen 325 MG TAB PO PRN ×2 (08:19→15:36)
[2017-09-23] MEDS: Gabapentin 300 MG CAP PO SCH ×2 (08:19→20:14)
[2017-09-23] MEDS: Famotidine 20 MG TAB PO SCH (08:19)
[2017-09-23] MEDS: metFORMIN 500 MG TAB PO SCH ×2 (08:19→17:06)
[2017-09-23] MEDS: Enoxaparin Sodium 30 MG/0.3 ML SYRINGE SC SCH (08:20)
[2017-09-23] MEDS: Ascorbic Acid 500 mg Chewable Tablet PO SCH ×2 (08:20→17:05)
[2017-09-23] MEDS: Metoprolol Tartrate 25 MG TAB PO SCH ×2 (08:20→20:14)
[2017-09-23] MEDS: Clotrimazole 1% Cream 15 GM TUBE TOP SCH ×2 (08:20→20:13)
[2017-09-23] MEDS: Polyethylene Glycol 3350 17 GM Packet PO SCH (08:21)
[2017-09-23] MEDS: Levemir Flexpen 100 UNITS/ML PEN SC SCH (08:21)
[2017-09-23] MEDS: Baclofen 10 MG TAB PO PRN ×2 (08:21→15:36)
[2017-09-23] MEDS ORDERED: Furosemide 40 MG/4 ML VIAL SLOW IVP SCH (09:00)
--- NOTE | 2017-09-23 10:03 | PRG ---
DATE OF SERVICE: 09/23/2017 SUBJECTIVE: The patient indicates she feels better this morning. OBJECTIVE: The patient is sitting up in bed. She looks very comfortable. She is not having any tro uble with her breathing. She is free of any fevers. She is smiling and looks much better than yeste rday. Her vital signs show a temperature 97.6, pulse 94, respirations 22, O2 sat 95%, blood pressure 119/57. Marrero catheter was inserted and the patient had approximately 1600 mL output over the last 24 hours. Her lungs sound much better. She has got good breath sounds. There are some expiratory r honchi, but there is no wheezing. The rales at the bases have resolved. Heart, irregularly irregula r rhythm. Extremities, no edema. Right leg externally rotated. X-ray of the right tibia fibula sti ll shows evidence of the proximal third of the tibial shaft and the fibula with no evidence of healin g. This was done on 09/20/2017. The chest x-ray done yesterday showed heart size, borderline elevat ed, pulmonary vascular engorged and interstitial markings consistent with some pulmonary edema. Her lab shows an H&H of 9.4 and 29.8, white cell count 7900 with 30% neutrophils, 11% bands, 20% lymp hocytes, 5% metamyelocytes, 4% myelocytes 2% promyelocytes. This was on a manual review. The platel et count was 372. Her blood cultures grew gram positive cocci in 2 of 2 blood cultures. Further elena ntification is in process. ASSESSMENT: 1. Bacteremia. A. Two of 2 blood cultures positive for gram positive cocci drawn on 09/22/2017. B. Clinically improved and afebrile. C. CBC shows a marked left shift with premature WBCs as of 09/23/2017, probably from the bacteremia. 2. Asthmatic bronchitis with wheezing. A. Improved, suspect secondary to the pulmonary edema. 3. Congestive heart failure. A. Improved as of 09/23/2017. 4. Generalized weakness. 5. Closed oblique fracture of the right tibia and fibula and the proximal tibial shaft and fibular s haft. A. 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 B. Managed with a long leg knee immobilizer. C. Tolerating sitting up in a chair. Comfortable as of 09/23/2017. D. Repeat x-ray of the tibia, fibula on 09/22/2017 shows no change and no signs of healing. 6. Chronic atrial fibrillation. A. Rate controlled. B. Not a candidate for anticoagulation. 7. Seizure disorder, controlled. 8. Diabetes type 2. 9. 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 PLAN: Overall, the patient looks better. Will continue the IV Lasix. Repeat chest x-ray tomorrow. Continue neb treatments. Will continue the Levaquin, but will add vancomycin.
[2017-09-23] MEDS: Vancomycin HCl 750 MG in Sodium Chloride 0.9% 250 ML 250 ML IVPB SCH (10:22)
[2017-09-23] MEDS: Vancomycin HCl 500 MG in Sodium Chloride 0.9% 100 ML IVPB SCH (10:24)
[2017-09-23] MEDS: HumaLOG 300 UNITS/3 ML VIAL SC PRN (17:06)
[2017-09-23] MEDS: Multivit, Therapeutic 1 TAB PO SCH (20:14)
[2017-09-23] MEDS: Magnesium Oxide 400 MG TAB PO SCH (20:14)
[2017-09-24 06:19] LABS: #Basophils 0.1 thou/uL (0.0-0.2); #Eosinphils 0.6 thou/uL (0.0-0.7); #Lymphocytes 2.3 thou/uL (1.20-3.40); %Basophils 1.1 % (0.0-1.0); %Eosinophils 7.6 % (0.0-10.0); %Lymphocytes 28.3 % (21.0-51.0); %Neutrophils 50.1 % (42.0-75.0); Hemoglobin 9.1 g/dL (12.0-16.0); Mean Corpuscular Hemoglobin 24.9 pg (27.0-31.0); Mean Corpuscular Volume 83.1 fl (81.0-99.0); Mean Platelet Volume 5.6 fL (7.4-10.4); Platelet Count 354 thou/uL (130-400); RBC Distribution Width 23.9 % (11.5-14.5); Red Blood Cell (RBC) Count 3.67 mill/uL (4.20-5.40)
[2017-09-24 06:23] LABS: Anion Gap 15 mmol/L (10-20); BUN (Urea Nitrogen) 35 mg/dL (9.8-20.1); Calc. Creatinine Clearance 38 mL/min (70-130); Calcium 8.4 mg/dL (7.8-10.44); Carbon Dioxide 26 mmol/L (23-31); Chloride 106 mmol/L (98-107); Estimated GFR-MDRD 40; Glucose 136 mg/dL (83-110); Sodium 143 mmol/L (136-145)
[2017-09-24 07:47] LABS: Anisocytosis SLIGHT = 6-15 cells (100X) (0-5/hpf)
[2017-09-24 07:48] LABS: PLT Morphology Comment Appears Adequate
[2017-09-24] MEDS: metFORMIN 500 MG TAB PO SCH ×2 (08:47→18:09)
[2017-09-24] MEDS: Metoprolol Tartrate 25 MG TAB PO SCH ×2 (08:47→20:29)
[2017-09-24] MEDS: Ascorbic Acid 500 mg Chewable Tablet PO SCH ×2 (08:47→18:12)
[2017-09-24] MEDS: Furosemide 40 MG TAB PO SCH (08:47)
[2017-09-24] MEDS: Ferrous Sulfate 325 MG TAB PO SCH ×2 (08:47→18:11)
[2017-09-24] MEDS: Famotidine 20 MG TAB PO SCH (08:47)
[2017-09-24] MEDS: Polyethylene Glycol 3350 17 GM Packet PO SCH (08:48)
[2017-09-24] MEDS: Enoxaparin Sodium 30 MG/0.3 ML SYRINGE SC SCH (08:48)
[2017-09-24] MEDS: Senokot S 8.6-50 MG TAB PO SCH ×2 (08:48→20:29)
[2017-09-24] MEDS: Gabapentin 300 MG CAP PO SCH ×2 (08:48→20:29)
--- NOTE | 2017-09-24 08:56 | RAD ---
PORTABLE UPRIGHT FRONTAL CHEST RADIOGRAPH: Date: 09/24/17 COMPARISON: 09/22/17. HISTORY: Reevaluate lung parenchyma, pulmonary edema. FINDINGS: Bones are diffusely osteopenic. There is atherosclerotic calcification of the aortic arch. No pneumot horax is seen. There is pulmonary vascular congestion with diffuse increased linear interstitial dens ity suggesting interstitial edema, stable. No alveolar opacity, lobar consolidation, or large volume pleural effusion. IMPRESSION: Stable interstitial prominence and pulmonary vascular congestion. POS: [facility]
[2017-09-24] MEDS: Levemir Flexpen 100 UNITS/ML PEN SC SCH (09:16)
[2017-09-24 10:32] LABS: Vancomycin, Trough 9.3 ug/mL
--- NOTE | 2017-09-24 10:56 | PRG ---
DATE OF SERVICE: 09/24/2017 SUBJECTIVE: The patient is sitting up in her Nataly chair. She looks very comfortable and did not ind icate a problem. Nurses did not indicate any change in her condition or difficulty. OBJECTIVE: The patient looks very comfortable and in no distress, sitting in a Nataly chair. Her maurice l signs show a temperature of 97.3, pulse 100, respirations 20, O2 saturation 94% on room air, blood pressure 136/63. Her weight is 166. Previous weight was 180. Her output over the last 24 hours has been 1250. Her lab shows an H&H of 9.1 and 30.5, WBC count 8000. There is 50% segs, 28% lymphocyte s. The patient did not have the premature cells today than she did yesterday. Her sodium was 143, p otassium 4, BUN 35, creatinine 1.27, GFR stable at 40. Her BNP that was done 2 days ago was 197. Re peat chest x-ray was reviewed. The heart size is a little smaller than previous. The pulmonary vascu lar congestion is still present, but a little less. Her blood cultures is growing coagulase negative staph 2/2. Final identification pending. On examination of her lungs the patient has good breath s ounds. There is no wheezing. There are some rales still at the bases posteriorly and some coarse ex piratory breath sounds. Heart has an irregular rhythm. Extremities, no edema. ASSESSMENT: 1. Bacteremia. A. Two of 2 blood cultures positive for gram positive cocci that was identified as a Staphylococcus epidermidis drawn on 09/22/2017. B. Clinically improved and remains afebrile. C. The marked left shift seen on 09/23/2017 has normalized as of 09/24/2017. 2. Asthmatic bronchitis with wheezing. A. Improved, suspect secondary to the pulmonary edema as of 09/24/2017. 3. Congestive heart failure. A. Improved as of 09/24/2017. 4. Generalized weakness. 5. Closed oblique fracture of the right tibia and fibula and the proximal tibial shaft and fibular s haft. A. 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 B. Managed with a long leg knee immobilizer. C. Tolerating sitting up in a chair. Comfortable as of 09/23/2017. D. Repeat x-ray of the tibia, fibula on 09/22/2017 shows no change and no signs of healing. 6. Chronic atrial fibrillation. A. Rate controlled. B. Not a candidate for anticoagulation. 7. Seizure disorder, controlled. 8. Diabetes type 2. 9. 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 PLAN: Will stop the IV Lasix and place her on 40 mg daily. We will continue the IV vancomycin. We are awaiting sensitivity report on the initial blood cultures, repeat the blood cultures.
[2017-09-24] MEDS: Vancomycin HCl 750 MG in Sodium Chloride 0.9% 250 ML 250 ML IVPB SCH (12:27)
[2017-09-24] MEDS: Clotrimazole 1% Cream 15 GM TUBE TOP SCH ×2 (14:38→20:27)
[2017-09-24] MEDS: Vancomycin HCl 500 MG in Sodium Chloride 0.9% 100 ML IVPB SCH (15:17)
[2017-09-24] MEDS: Magnesium Oxide 400 MG TAB PO SCH (20:29)
[2017-09-24] MEDS: Multivit, Therapeutic 1 TAB PO SCH (20:29)
[2017-09-25 05:17] LABS: #Basophils 0.1 thou/uL (0.0-0.2); #Eosinphils 0.5 thou/uL (0.0-0.7); #Lymphocytes 2.4 thou/uL (1.20-3.40); #Monocytes 1.3 thou/uL (0.11-0.59); #Neutrophils 6.1 thou/uL (1.40-6.50); %Basophils 1.1 % (0.0-1.0); %Eosinophils 4.4 % (0.0-10.0); %Lymphocytes 23.5 % (21.0-51.0); %Monocytes 12.1 % (0.0-10.0); %Neutrophils 58.9 % (42.0-75.0); Hemoglobin 9.1 g/dL (12.0-16.0); Mean Corpuscular HGB CONC 31.6 g/dL (32.0-36.0); Mean Corpuscular Hemoglobin 25.7 pg (27.0-31.0); Mean Corpuscular Volume 81.2 fl (81.0-99.0); Platelet Count 368 thou/uL (130-400); RBC Distribution Width 23.9 % (11.5-14.5); Red Blood Cell (RBC) Count 3.54 mill/uL (4.20-5.40); White Blood Cell (WBC) Count 10.3 thou/uL (4.8-10.8)
[2017-09-25 05:18] LABS: Anisocytosis SLIGHT = 6-15 cells (100X) (0-5/hpf)
[2017-09-25 05:19] LABS: Hypochromia MODERATE=16-30 cells (100X) (0-5/hpf)
[2017-09-25 05:23] LABS: Anion Gap 15 mmol/L (10-20); BUN (Urea Nitrogen) 30 mg/dL (9.8-20.1); Calc. Creatinine Clearance 46 mL/min (70-130); Calcium 8.5 mg/dL (7.8-10.44); Carbon Dioxide 24 mmol/L (23-31); Chloride 105 mmol/L (98-107); Estimated GFR-MDRD 50; Glucose 184 mg/dL (83-110); Potassium 3.7 mmol/L (3.5-5.1); Sodium 140 mmol/L (136-145)
[2017-09-25] MEDS: Ferrous Sulfate 325 MG TAB PO SCH ×2 (07:42→15:41)
[2017-09-25] MEDS: Ascorbic Acid 500 mg Chewable Tablet PO SCH ×2 (07:42→15:41)
[2017-09-25] MEDS: HumaLOG 300 UNITS/3 ML VIAL SC PRN ×2 (07:49→11:57)
[2017-09-25] MEDS: metFORMIN 500 MG TAB PO SCH ×2 (07:50→16:34)
[2017-09-25] MEDS: Polyethylene Glycol 3350 17 GM Packet PO SCH (07:55)
[2017-09-25] MEDS: Enoxaparin Sodium 30 MG/0.3 ML SYRINGE SC SCH (07:56)
[2017-09-25] MEDS: Metoprolol Tartrate 25 MG TAB PO SCH ×2 (08:00→20:27)
[2017-09-25] MEDS: Senokot S 8.6-50 MG TAB PO SCH ×2 (08:00→20:28)
[2017-09-25] MEDS: Furosemide 40 MG TAB PO SCH (08:00)
[2017-09-25] MEDS: Famotidine 20 MG TAB PO SCH (08:00)
[2017-09-25] MEDS: Gabapentin 300 MG CAP PO SCH ×2 (08:01→20:27)
[2017-09-25] MEDS: Clotrimazole 1% Cream 15 GM TUBE TOP SCH ×2 (08:01→20:26)
[2017-09-25] MEDS: Levemir Flexpen 100 UNITS/ML PEN SC SCH (08:02)
[2017-09-25] MEDS ORDERED: Vancomycin HCl 750 MG in Sodium Chloride 0.9% 250 ML 250 ML IVPB SCH (09:00)
--- NOTE | 2017-09-25 09:17 | PRG ---
DATE OF SERVICE: 09/25/2017 SUBJECTIVE: This morning the patient is sitting up in bed. She looks comfortable and in no distress . OBJECTIVE: Her temperature is 97.4, pulse 109, respirations 18, O2 sat on room air 93, blood pressur e 123/58. Lungs; the patient has coarse expiratory breath sounds. There was no basilar rales, no wh eeze. Heart, irregularly irregular rhythm. Extremities; no edema. Her lab shows an H&H of 9.1 and 28.8, white cell count 10,300 with 59% segs, 24% lymphocytes, platele t count of 368,000. Sodium 140, potassium 3.7, BUN 30, creatinine 1.05, GFR 50, glucose 184. Her va ncomycin level done yesterday was 9.3. Her blood cultures drawn on 09/22/2017 grew coagulase negativ e staph. Two blood cultures were drawn again on 09/24/2017, report of these are pending. ASSESSMENT: 1. Bacteremia. A. Two of 2 blood cultures positive for gram positive cocci that was identified as a Staphylococcus epidermidis drawn on 09/22/2017. B. Clinically improved, remains afebrile as of 09/25/2017. C. The marked left shift seen on 09/23/2017 has normalized as of 09/24/2017. D. Repeat blood cultures drawn on 09/24/2017, report pending. 2. Asthmatic bronchitis with wheezing. A. Improved, suspect secondary to the pulmonary edema as of 09/25/2017. 3. Congestive heart failure. A. Improved as of 09/25/2017. 4. Generalized weakness. 5. Closed oblique fracture of the right tibia and fibula and the proximal tibial shaft and fibular s haft. A. 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 B. Managed with a long leg knee immobilizer. C. Tolerating sitting up in a chair. Comfortable as of 09/23/2017. D. Repeat x-ray of the tibia, fibula on 09/22/2017 shows no change and no signs of healing. 6. Chronic atrial fibrillation. A. Rate controlled. B. Not a candidate for anticoagulation. 7. Seizure disorder, controlled. 8. Diabetes type 2. 9. 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 PLAN: We will continue the vancomycin. We will alter her dose to 750 b.i.d. We will await results of the cultures. Source of the bacteremia not known. May consider an echocardiogram to rule out a b acterial valve vegetation.
[2017-09-25] MEDS: Vancomycin HCl 750 MG in Sodium Chloride 0.9% 250 ML 250 ML IVPB SCH ×2 (09:34→22:17)
[2017-09-25] MEDS: Multivit, Therapeutic 1 TAB PO SCH (20:27)
[2017-09-25] MEDS: Magnesium Oxide 400 MG TAB PO SCH (20:27)
[2017-09-26 05:48] LABS: Anion Gap 16 mmol/L (10-20); BUN (Urea Nitrogen) 24 mg/dL (9.8-20.1); Calc. Creatinine Clearance 51 mL/min (70-130); Calcium 8.6 mg/dL (7.8-10.44); Carbon Dioxide 22 mmol/L (23-31); Chloride 110 mmol/L (98-107); Estimated GFR-MDRD 56; Glucose 87 mg/dL (83-110); Potassium 3.6 mmol/L (3.5-5.1); Sodium 144 mmol/L (136-145)
[2017-09-26] MEDS: Ferrous Sulfate 325 MG TAB PO SCH ×2 (07:41→16:24)
[2017-09-26] MEDS: Ascorbic Acid 500 mg Chewable Tablet PO SCH ×2 (07:41→16:24)
[2017-09-26] MEDS: metFORMIN 500 MG TAB PO SCH ×2 (07:43→16:28)
[2017-09-26] MEDS: predniSONE 20 MG TAB PO SCH (08:33)
[2017-09-26] MEDS: Metoprolol Tartrate 25 MG TAB PO SCH ×2 (08:35→20:23)
[2017-09-26] MEDS: Senokot S 8.6-50 MG TAB PO SCH ×2 (08:35→20:23)
[2017-09-26] MEDS: Furosemide 40 MG TAB PO SCH (08:35)
[2017-09-26] MEDS: Gabapentin 300 MG CAP PO SCH ×2 (08:36→20:22)
[2017-09-26] MEDS: Enoxaparin Sodium 30 MG/0.3 ML SYRINGE SC SCH (08:36)
[2017-09-26] MEDS: Famotidine 20 MG TAB PO SCH (08:36)
[2017-09-26] MEDS: Clotrimazole 1% Cream 15 GM TUBE TOP SCH ×2 (08:36→20:24)
[2017-09-26] MEDS: Polyethylene Glycol 3350 17 GM Packet PO SCH (08:37)
[2017-09-26] MEDS: Levemir Flexpen 100 UNITS/ML PEN SC SCH (08:42)
[2017-09-26] MEDS ORDERED: VANCOMYCIN IVPB PRN (09:12)
[2017-09-26 09:32] LABS: Vancomycin, Trough 20.8 ug/mL
[2017-09-26] MEDS: Vancomycin HCl 750 MG in Sodium Chloride 0.9% 250 ML 250 ML IVPB SCH ×2 (10:51→22:11)
--- NOTE | 2017-09-26 11:15 | PRG ---
DATE OF SERVICE: 09/26/2017 SUBJECTIVE: This morning the patient was resting in bed asleep, but easily aroused and was in good s pirits, was smiling. Last evening, her IV had infiltrated and had to be restarted. Initially, the p bindu refused to have this done, but after visiting with her daughter, Silvia, she was agreeable to this. OBJECTIVE: The patient is alert and appears very comfortable in no distress. Her vital signs show a temperature of 96.6, pulse 87, respirations 20, O2 sat 92% on room air, blood pressure 108/65. Lung s have expiratory wheeze that are mild and some expiratory rhonchi. There are no rales. Heart; regu lar rate. Extremities, no edema. Her left hand, the patient keeps a Band-Aid around the end of the fourth digit. She has had an area of irritation to the nail fold. I looked this last night. It was pink around the proximal nail fold. This morning the pinkness is all resolving. There is no draina ge or ulceration. Her daughter had said this has been much more red and swelled a few days previousl y when I visited with her last evening. Her labs shows sodium 144, potassium 3.6, BUN 24, creatinine 0.94, GFR 56, glucose 87. The patient's repeat blood cultures drawn on 09/24/2017 have no growth x2 . The final culture results from the initial blood cultures drawn on 09/22/2017 grew a Staph capitis and Staph epidermidis. These organisms are sensitive to Augmentin, amoxicillin clavulanic acid. Th e Staph capitis is sensitive to levofloxacin, doxycycline, vancomycin. The Staphylococcus epidermidi s is sensitive to the cephalosporins, doxycycline and resistant to the Levaquin, sensitive to vancomy ar. ASSESSMENT: 1. Bacteremia. A. The 2 blood cultures drawn on 09/22/2017 were both positive for Staph epidermidis and Staph capit is. Both of these organisms are sensitive to doxycycline and vancomycin and the Staph epi was sensit kika to the cephalosporins. B. Repeat blood cultures drawn on 09/24/2017 showed no growth x2. C. Etiology of the bacteremia, suspect related to the paronychia of the left fourth digit that is re solving. 2. Asthmatic bronchitis with wheezing. A. Excellent breath sounds, but with increased expiratory wheezes as of 09/26/2017. 3. Congestive heart failure. A. Improved as of 09/26/2017. 4. Generalized weakness. 5. Closed oblique fracture of the right tibia and fibula and the proximal tibial shaft and fibular s haft. A. 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 B. Managed with a long leg knee immobilizer. C. Tolerating sitting up in a chair. Comfortable as of 09/23/2017. D. Repeat x-ray of the tibia, fibula on 09/22/2017 shows no change and no signs of healing. 6. Chronic atrial fibrillation. A. Rate controlled. B. Not a candidate for anticoagulation. 7. Seizure disorder, controlled. 8. Diabetes type 2. 9. 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 PLAN: I visited with patient's daughter, Silvia last evening and she had mentioned and reminded me about the chronic paronychia of the left fourth digit. She said it got real red, but it is a lot bet ter since she has been on the antibiotics. I suspect this is probably the source of the bacteremia. Overall, she is doing much better other than the asthma. The daughter does not want to pursue echoc ardiogram to ensure there was no vegetation on any valves of the heart. I feel like there was a good source of the etiology of this bacteremia from the finger and she is markedly improved. She is stil l having a lot of wheezing. Her daughter says she has this periodically. Will place her on a course of prednisone. This will increase her blood sugars, but she has a sliding scale to help cover for t his. We will continue her on the IV vancomycin for a total of at least a week and then was placed he r on doxycycline orally for at least another week.
[2017-09-26] MEDS: HumaLOG 300 UNITS/3 ML VIAL SC PRN ×2 (11:35→17:22)
[2017-09-26] MEDS: Multivit, Therapeutic 1 TAB PO SCH (20:23)
[2017-09-26] MEDS: Magnesium Oxide 400 MG TAB PO SCH (20:23)
[2017-09-27] MEDS: Ascorbic Acid 500 mg Chewable Tablet PO SCH ×2 (07:15→16:17)
[2017-09-27] MEDS: Ferrous Sulfate 325 MG TAB PO SCH ×2 (07:16→16:17)
[2017-09-27] MEDS: predniSONE 20 MG TAB PO SCH (07:18)
[2017-09-27] MEDS: metFORMIN 500 MG TAB PO SCH ×2 (07:18→16:17)
[2017-09-27] MEDS: Gabapentin 300 MG CAP PO SCH ×2 (08:22→20:19)
[2017-09-27] MEDS: Senokot S 8.6-50 MG TAB PO SCH ×2 (08:22→20:18)
[2017-09-27] MEDS: Metoprolol Tartrate 25 MG TAB PO SCH ×2 (08:22→20:19)
[2017-09-27] MEDS: Furosemide 40 MG TAB PO SCH (08:23)
[2017-09-27] MEDS: Famotidine 20 MG TAB PO SCH (08:23)
[2017-09-27] MEDS: Enoxaparin Sodium 30 MG/0.3 ML SYRINGE SC SCH (08:23)
[2017-09-27] MEDS: Levemir Flexpen 100 UNITS/ML PEN SC SCH (08:24)
[2017-09-27] MEDS: Clotrimazole 1% Cream 15 GM TUBE TOP SCH ×2 (08:24→20:21)
[2017-09-27] MEDS: Polyethylene Glycol 3350 17 GM Packet PO SCH (08:25)
[2017-09-27] MEDS: Vancomycin HCl 750 MG in Sodium Chloride 0.9% 250 ML 250 ML IVPB SCH ×2 (09:25→21:22)
[2017-09-27] MEDS: HumaLOG 300 UNITS/3 ML VIAL SC PRN ×2 (11:47→17:57)
--- NOTE | 2017-09-27 14:35 | PRG ---
DATE OF SERVICE: 09/27/2017 SUBJECTIVE: The patient is sitting up in a chair, has finished a good breakfast. She has no compla int. Nurses report no problems. OBJECTIVE: The patient is alert, in no distress. Her vital signs show there she remains afebrile wi th a temperature of 96.9, pulse 108, respirations 20, O2 saturation 97% on 2 liters, blood pressure 1 30/64. Lungs, the patient has good breath sounds. There are some expiratory rhonchi present, overal l the chest sounds a little better. Heart; irregular regular rhythm with adequate ventricular respon se. Extremities, no edema. FBS this morning is pending, yesterday morning 153. ASSESSMENT: 1. Bacteremia. A. The 2 blood cultures drawn on 09/22/2017 were both positive for Staph epidermidis and Staph capit is. Both of these organisms are sensitive to doxycycline and vancomycin and the Staph epi was sensit kika to the cephalosporins. B. Repeat blood cultures drawn on 09/24/2017 showed no growth x2. C. Etiology of the bacteremia, suspect related to the paronychia of the left fourth digit that is re solving. D. Improved, remains afebrile and continued on the IV vancomycin as of 09/27/2017. 2. Asthmatic bronchitis with wheezing. A. Improved, good breath sounds. Still has some expiratory wheezes that are mild and some rhonchi a s of 09/27/2017. Started on prednisone on 09/26/2017. 3. Congestive heart failure. A. Improved as of 09/27/2017. 4. Generalized weakness. 5. Closed oblique fracture of the right tibia and fibula and the proximal tibial shaft and fibular s haft. A. 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 B. Managed with a long leg knee immobilizer. C. Tolerating sitting up in a chair. Comfortable as of 09/23/2017. D. Repeat x-ray of the tibia, fibula on 09/22/2017 shows no change and no signs of healing. 6. Chronic atrial fibrillation. A. Rate controlled. B. Not a candidate for anticoagulation. 7. Seizure disorder, controlled. 8. Diabetes type 2. 9. 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 PLAN: Overall, patient is improving. We will continue the IV vancomycin. The IV vancomycin was sta rted on 09/23/2017 and will continue this for a minimum of 7 days, which will be 09/30/2017, then suhail l following day when this is stopped, we will start her on doxycycline for a couple of weeks. The chetna finn's Levaquin has been stopped.
[2017-09-27] MEDS: Magnesium Oxide 400 MG TAB PO SCH (20:18)
[2017-09-27] MEDS: Multivit, Therapeutic 1 TAB PO SCH (20:19)
[2017-09-28 06:24] LABS: Anion Gap 14 mmol/L (10-20); BUN (Urea Nitrogen) 25 mg/dL (9.8-20.1); Calc. Creatinine Clearance 46 mL/min (70-130); Calcium 8.9 mg/dL (7.8-10.44); Carbon Dioxide 25 mmol/L (23-31); Chloride 109 mmol/L (98-107); Estimated GFR-MDRD 50; Sodium 144 mmol/L (136-145)
[2017-09-28] MEDS: Ferrous Sulfate 325 MG TAB PO SCH ×2 (06:31→15:58)
[2017-09-28] MEDS: Ascorbic Acid 500 mg Chewable Tablet PO SCH ×2 (06:31→15:58)
[2017-09-28 06:34] LABS: #Basophils 0.1 thou/uL (0.0-0.2); #Eosinphils 0.5 thou/uL (0.0-0.7); #Lymphocytes 3.6 thou/uL (1.20-3.40); #Neutrophils 4.9 thou/uL (1.40-6.50); %Eosinophils 5.4 % (0.0-10.0); %Lymphocytes 35.7 % (21.0-51.0); %Monocytes 10.2 % (0.0-10.0); %Neutrophils 47.8 % (42.0-75.0); Anisocytosis SLIGHT = 6-15 cells (100X) (0-5/hpf); Band 4 % (5-11); Eosinophils 1 % (0-10); Hemoglobin 8.9 g/dL (12.0-16.0); Lymphocytes 27 % (21-51); MDiff Complete? YES; Mean Corpuscular HGB CONC 30.7 g/dL (32.0-36.0); Mean Corpuscular Hemoglobin 25.5 pg (27.0-31.0); Mean Platelet Volume 5.9 fL (7.4-10.4); Monocytes 11 % (0-10); Neutrophil 57 % (42-75); PLT Morphology Comment Appears Increased; Platelet Count 402 thou/uL (130-400); RBC Distribution Width 23.6 % (11.5-14.5); Red Blood Cell (RBC) Count 3.49 mill/uL (4.20-5.40); White Blood Cell (WBC) Count 10.2 thou/uL (4.8-10.8)
[2017-09-28 06:49] LABS: Glucose 57 mg/dL (83-110)
[2017-09-28] MEDS: metFORMIN 500 MG TAB PO SCH ×2 (07:39→16:04)
[2017-09-28] MEDS: predniSONE 20 MG TAB PO SCH (07:40)
[2017-09-28] MEDS: Enoxaparin Sodium 30 MG/0.3 ML SYRINGE SC SCH (08:26)
[2017-09-28] MEDS: Famotidine 20 MG TAB PO SCH (08:27)
[2017-09-28] MEDS: Gabapentin 300 MG CAP PO SCH ×2 (08:27→20:21)
[2017-09-28] MEDS: Senokot S 8.6-50 MG TAB PO SCH ×2 (08:27→20:21)
[2017-09-28] MEDS: Furosemide 40 MG TAB PO SCH (08:27)
[2017-09-28] MEDS: Metoprolol Tartrate 25 MG TAB PO SCH ×2 (08:27→20:52)
[2017-09-28] MEDS: Clotrimazole 1% Cream 15 GM TUBE TOP SCH ×2 (08:28→20:20)
[2017-09-28] MEDS: Levemir Flexpen 100 UNITS/ML PEN SC SCH (08:28)
[2017-09-28] MEDS: Polyethylene Glycol 3350 17 GM Packet PO SCH (08:29)
[2017-09-28 09:19] LABS: Vancomycin, Trough 28.4 ug/mL
[2017-09-28] MEDS: HumaLOG 300 UNITS/3 ML VIAL SC PRN (15:59)
[2017-09-28] MEDS: Multivit, Therapeutic 1 TAB PO SCH (20:21)
[2017-09-28] MEDS: Magnesium Oxide 400 MG TAB PO SCH (20:21)
[2017-09-28] MEDS: Vancomycin HCl 1 GM in Sodium Chloride 0.9% 250 ML 250 ML IVPB SCH (21:00)
[2017-09-29] MEDS: Polyethylene Glycol 3350 17 GM Packet PO SCH (08:43)
[2017-09-29] MEDS: metFORMIN 500 MG TAB PO SCH ×2 (08:44→16:23)
[2017-09-29] MEDS: Famotidine 20 MG TAB PO SCH (08:44)
[2017-09-29] MEDS: Furosemide 40 MG TAB PO SCH (08:44)
[2017-09-29] MEDS: Ferrous Sulfate 325 MG TAB PO SCH ×2 (08:44→16:23)
[2017-09-29] MEDS: Gabapentin 300 MG CAP PO SCH ×2 (08:44→20:13)
[2017-09-29] MEDS: Ascorbic Acid 500 mg Chewable Tablet PO SCH ×2 (08:45→16:23)
[2017-09-29] MEDS: predniSONE 20 MG TAB PO SCH (08:45)
[2017-09-29] MEDS: Senokot S 8.6-50 MG TAB PO SCH ×2 (08:45→20:13)
[2017-09-29] MEDS: Metoprolol Tartrate 25 MG TAB PO SCH ×2 (08:45→20:13)
[2017-09-29] MEDS: Levemir Flexpen 100 UNITS/ML PEN SC SCH (08:46)
[2017-09-29] MEDS: Clotrimazole 1% Cream 15 GM TUBE TOP SCH ×2 (08:46→20:14)
[2017-09-29] MEDS: Enoxaparin Sodium 30 MG/0.3 ML SYRINGE SC SCH (08:46)
[2017-09-29] MEDS: HumaLOG 300 UNITS/3 ML VIAL SC PRN ×2 (11:23→16:23)
--- NOTE | 2017-09-29 11:39 | PRG ---
DATE OF SERVICE: 09/28/2017 SUBJECTIVE: The patient said she is feeling better today. OBJECTIVE: GENERAL: The patient is sitting upright in bed. She looks very comfortable and in no distress. VITAL SIGNS: Shows temperature 97.9, pulse 94, respirations 20, O2 sat 95% on room air, blood pressu re 121/60. LUNGS: Have expiratory rhonchi and some mild wheeze, but with excellent breath sounds. No rales. HEART: rhythm. EXTREMITIES: No edema. LABORATORY DATA: Shows an hemoglobin and hematocrit of 8.9 and 28.9, white cell count 10,200 with 57 % neutrophils, 27% lymphocytes, and a platelet count of 402,000. Her sodium 144, potassium 4, BUN 25 , creatinine 1.04, GFR 50, glucose 57. Repeat glucose later was 73. ASSESSMENT: 1. Bacteremia. A. The 2 blood cultures drawn on 09/22/2017 were both positive for Staph epidermidis and Staph capit is. Both of these organisms are sensitive to doxycycline and vancomycin and the Staph epi was sensit kika to the cephalosporins. B. Repeat blood cultures drawn on 09/24/2017 showed no growth x2. C. Etiology of the bacteremia, suspect related to the paronychia of the left fourth digit that is re solving. D. Improved, remains afebrile and continued on the IV vancomycin as of 09/28/2017. 2. Asthmatic bronchitis with wheezing. A. Improved. Good breath sounds, still has expiratory rhonchi and some wheeze as of 09/28/2017. St arted on prednisone on 09/26/2017. 3. Congestive heart failure. A. Improved as of 09/28/2017. 4. Generalized weakness. 5. Closed oblique fracture of the right tibia and fibula and the proximal tibial shaft and fibular s haft. A. 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 B. Managed with a long leg knee immobilizer. C. Tolerating sitting up in a chair. Comfortable as of 09/23/2017. D. Repeat x-ray of the tibia, fibula on 09/22/2017 shows no change and no signs of healing. 6. Chronic atrial fibrillation. A. Rate controlled. B. Not a candidate for anticoagulation. 7. Seizure disorder, controlled. 8. Diabetes type 2. A. Please put glucose mildly low on the morning of 09/28/2017, improved, on recheck, asymptomatic. 9. 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 PLAN: Continue the IV vancomycin. Dosing was modified due to trough level of vancomycin at 28. Her dosage was cut back to vancomycin 1 gram every 24 hours. We will continue the vancomycin through and then switch to doxycycline.
[2017-09-29] MEDS: Multivit, Therapeutic 1 TAB PO SCH (20:13)
[2017-09-29] MEDS: Magnesium Oxide 400 MG TAB PO SCH (20:13)
[2017-09-29] MEDS: Vancomycin HCl 1 GM in Sodium Chloride 0.9% 250 ML 250 ML IVPB SCH (21:24)
[2017-09-30] MEDS: Famotidine 20 MG TAB PO SCH (08:00)
[2017-09-30] MEDS: Metoprolol Tartrate 25 MG TAB PO SCH ×2 (08:01→20:07)
[2017-09-30] MEDS: Senokot S 8.6-50 MG TAB PO SCH ×2 (08:01→20:09)
[2017-09-30] MEDS: predniSONE 20 MG TAB PO SCH (08:01)
[2017-09-30] MEDS: Gabapentin 300 MG CAP PO SCH ×2 (08:01→20:07)
[2017-09-30] MEDS: Furosemide 40 MG TAB PO SCH (08:01)
[2017-09-30] MEDS: Ascorbic Acid 500 mg Chewable Tablet PO SCH ×2 (08:02→15:38)
[2017-09-30] MEDS: metFORMIN 500 MG TAB PO SCH ×2 (08:02→16:17)
[2017-09-30] MEDS: Polyethylene Glycol 3350 17 GM Packet PO SCH (08:02)
[2017-09-30] MEDS: Ferrous Sulfate 325 MG TAB PO SCH ×2 (08:02→15:38)
[2017-09-30] MEDS: Levemir Flexpen 100 UNITS/ML PEN SC SCH (08:03)
[2017-09-30] MEDS: Clotrimazole 1% Cream 15 GM TUBE TOP SCH ×2 (08:06→20:08)
[2017-09-30] MEDS: Enoxaparin Sodium 30 MG/0.3 ML SYRINGE SC SCH (08:45)
[2017-09-30] MEDS: HumaLOG 300 UNITS/3 ML VIAL SC PRN ×2 (11:27→16:16)
--- NOTE | 2017-09-30 14:55 | PRG ---
DATE OF SERVICE: 09/29/2017 SUBJECTIVE: The patient indicates no problem. Nurses report no difficulties or change in condition. OBJECTIVE: The patient is sitting upright, having finished her breakfast. She is alert, appears com fortable, and in no distress. Her temp 97.2, pulse 84, respirations 20, O2 saturation 94% on room ai r, blood pressure 104/63. Lungs, there are good breath sounds, but there are still expiratory rhonch i and some very mild wheeze. Heart, irregularly irregular rhythm. Extremities, no edema. ASSESSMENT: 1. Bacteremia. A. The 2 blood cultures drawn on 09/22/2017 were both positive for Staph epidermidis and Staph capit is. Both of these organisms are sensitive to doxycycline and vancomycin and the Staph epi was sensit kika to the cephalosporins. B. Repeat blood cultures drawn on 09/24/2017 showed no growth x2. C. Etiology of the bacteremia, suspect related to the paronychia of the left fourth digit that is re solving. D. Improved, remains afebrile. We will continue the IV vancomycin as of 09/29/2017. 2. Asthmatic bronchitis with wheezing. A. Improved, good breath sounds. Still has some expiratory rhonchi and mild wheeze as of 09/29/2017 . 3. Congestive heart failure. A. Improved as of 09/29/2017. 4. Generalized weakness. 5. Closed oblique fracture of the right tibia and fibula and the proximal tibial shaft and fibular s haft. A. 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 B. Managed with a long leg knee immobilizer. C. Tolerating sitting up in a chair. Comfortable as of 09/23/2017. D. Repeat x-ray of the tibia, fibula on 09/22/2017 shows no change and no signs of healing. 6. Chronic atrial fibrillation. A. Rate controlled. B. Not a candidate for anticoagulation. 7. Seizure disorder, controlled. 8. Diabetes type 2. A. Please put glucose mildly low on the morning of 09/28/2017, improved, on recheck, asymptomatic. 9. 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 PLAN: Continue present care. The patient will complete her 7th day of IV vancomycin on . Afte r that, we will start her on doxycycline. Continue nebulizer treatments and Pulmicort.
--- NOTE | 2017-09-30 15:03 | PRG ---
DATE OF SERVICE: 09/30/2017 SUBJECTIVE: The patient said she is feeling better. She is sitting up in her Nataly chair working a [employer]. She is smiling and does not indicate any problems. Nurses report no issues or problems. Her vital signs show a temperature of 97.6, pulse 93, respirations 20, O2 saturation 94% on room air, bl ood pressure 107/58. Her lungs have good breath sounds. There are expiratory rhonchi present, but I did not hear any wheezes today. Heart; irregular regular rhythm with adequate ventricular response. Extremities, no edema. Her FBS this morning was 103. ASSESSMENT: 1. Bacteremia. A. The 2 blood cultures drawn on 09/22/2017 were both positive for Staph epidermidis and Staph capit is. Both of these organisms are sensitive to doxycycline and vancomycin and the Staph epi was sensit kika to the cephalosporins. B. Repeat blood cultures drawn on 09/24/2017 showed no growth x2. C. Etiology of the bacteremia, suspect related to the paronychia of the left fourth digit that is re solving. D. Improved. Remains afebrile and continues on the IV vancomycin. 2. Asthmatic bronchitis with wheezing. A. Improved. Good breath sounds, still has expiratory rhonchi, but did not hear any wheezing as of 09/30/2017. 3. Congestive heart failure. A. Improved as of 09/30/2017. 4. Generalized weakness. 5. Closed oblique fracture of the right tibia and fibula and the proximal tibial shaft and fibular s haft. A. 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 B. Managed with a long leg knee immobilizer. C. Tolerating sitting up in a chair. Comfortable as of 09/30/2017. D. Repeat x-ray of the tibia, fibula on 09/22/2017 shows no change and no signs of healing. 6. Chronic atrial fibrillation. A. Rate controlled. B. Not a candidate for anticoagulation. 7. Seizure disorder, controlled. 8. Diabetes type A. Glucose mildly low on the morning of 09/28/2017, improved, on recheck, asymptomatic. B. Controlled as of 09/30/2017. 9. 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 PLAN: The patient will complete her 7th day of IV vancomycin this evening. Tomorrow we will start h er on doxycycline for a 10 day period. Continue physical therapy.
[2017-09-30] MEDS: Multivit, Therapeutic 1 TAB PO SCH (20:07)
[2017-09-30] MEDS: Magnesium Oxide 400 MG TAB PO SCH (20:07)
[2017-09-30] MEDS: Vancomycin HCl 750 MG in Sodium Chloride 0.9% 250 ML 250 ML IVPB SCH (21:47)
[2017-10-01] MEDS: Ascorbic Acid 500 mg Chewable Tablet PO SCH ×2 (07:15→16:12)
[2017-10-01] MEDS: metFORMIN 500 MG TAB PO SCH ×2 (07:15→16:12)
[2017-10-01] MEDS: Ferrous Sulfate 325 MG TAB PO SCH ×2 (07:15→16:12)
[2017-10-01] MEDS: predniSONE 20 MG TAB PO SCH (07:15)
[2017-10-01] MEDS ORDERED: predniSONE 20 MG TAB PO SCH (08:00)
[2017-10-01] MEDS: Levemir Flexpen 100 UNITS/ML PEN SC SCH (08:11)
[2017-10-01] MEDS: Enoxaparin Sodium 30 MG/0.3 ML SYRINGE SC SCH (08:12)
[2017-10-01] MEDS: Famotidine 20 MG TAB PO SCH (08:12)
[2017-10-01] MEDS: Polyethylene Glycol 3350 17 GM Packet PO SCH (08:12)
[2017-10-01] MEDS: Metoprolol Tartrate 25 MG TAB PO SCH ×2 (08:13→20:12)
[2017-10-01] MEDS: Furosemide 40 MG TAB PO SCH (08:13)
[2017-10-01] MEDS: Gabapentin 300 MG CAP PO SCH ×2 (08:13→20:12)
[2017-10-01] MEDS: Senokot S 8.6-50 MG TAB PO SCH ×2 (08:14→20:12)
[2017-10-01] MEDS: Clotrimazole 1% Cream 15 GM TUBE TOP SCH ×2 (08:15→20:13)
[2017-10-01] MEDS: Doxycycline 100 MG CAP PO SCH ×2 (08:17→20:12)
[2017-10-01] MEDS: HumaLOG 300 UNITS/3 ML VIAL SC PRN ×2 (11:32→16:12)
--- NOTE | 2017-10-01 14:19 | PRG ---
DATE OF SERVICE: 10/01/2017 SUBJECTIVE: The patient has no complaint today. She said she has voided a couple of times through t he night. She is glad to have the catheter out. The catheter was removed yesterday, but she had not voided through the day. Her bladder scan showed 137 mL residual. A little later during the evening , though she voided twice and has had no problem. OBJECTIVE: The patient is alert and appears very comfortable in no distress. Her temperature is 97. 2, pulse 83, respirations 18, O2 sat 91% on room air, blood pressure 119/56. Lungs have good breath sounds. There is some very mild expiratory rhonchi, much improved and no wheezes. Heart, regular ra te with occasional irregularity. Extremities; no edema. ASSESSMENT: 1. Bacteremia. A. The 2 blood cultures drawn on 09/22/2017 were both positive for Staph epidermidis and Staph capit is. Both of these organisms are sensitive to doxycycline and vancomycin and the Staph epi was sensit kika to the cephalosporins. B. Repeat blood cultures drawn on 09/24/2017 showed no growth x2. C. Etiology of the bacteremia, suspect related to the paronychia of the left fourth digit that is re solving. D. Improved. Remains afebrile. Completed a 7-day course of IV vancomycin on the evening of 018. 2. Asthmatic bronchitis with wheezing. A. Improved, breath sounds are excellent. Still has some mild expiratory rhonchi as of 10/01/2017. 3. Congestive heart failure. A. Resolved as of 10/01/2017. 4. Generalized weakness. 5. Closed oblique fracture of the right tibia and fibula and the proximal tibial shaft and fibular s haft. A. 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 B. Managed with a long leg knee immobilizer. C. Tolerating sitting up in a chair. Comfortable as of 09/30/2017. D. Repeat x-ray of the tibia, fibula on 09/22/2017 shows no change and no signs of healing. 6. Chronic atrial fibrillation. A. Rate controlled. B. Not a candidate for anticoagulation. 7. Seizure disorder, controlled. 8. Diabetes type A. Glucose mildly low on the morning of 09/28/2017, improved, on recheck, asymptomatic. B. Controlled as of 09/30/2017. 9. 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 PLAN: The patient is doing well. We will place patient on doxycycline for a 7 day period. We will reduce her prednisone to 20 mg. Continue PT.
[2017-10-01] MEDS: Multivit, Therapeutic 1 TAB PO SCH (20:12)
[2017-10-01] MEDS: Magnesium Oxide 400 MG TAB PO SCH (20:12)
[2017-10-01] MEDS: Vancomycin HCl 750 MG in Sodium Chloride 0.9% 250 ML 250 ML IVPB SCH (22:06)
[2017-10-02] MEDS ORDERED: predniSONE 20 MG TAB PO SCH (08:00)
[2017-10-02] MEDS: Enoxaparin Sodium 30 MG/0.3 ML SYRINGE SC SCH (08:25)
[2017-10-02] MEDS: predniSONE 20 MG TAB PO SCH (08:25)
[2017-10-02] MEDS: Gabapentin 300 MG CAP PO SCH ×2 (08:26→20:42)
[2017-10-02] MEDS: Famotidine 20 MG TAB PO SCH (08:26)
[2017-10-02] MEDS: Senokot S 8.6-50 MG TAB PO SCH ×2 (08:26→20:42)
[2017-10-02] MEDS: Metoprolol Tartrate 25 MG TAB PO SCH ×2 (08:26→20:42)
[2017-10-02] MEDS: metFORMIN 500 MG TAB PO SCH ×2 (08:26→16:36)
[2017-10-02] MEDS: Doxycycline 100 MG CAP PO SCH ×2 (08:26→20:41)
[2017-10-02] MEDS: Furosemide 40 MG TAB PO SCH (08:26)
[2017-10-02] MEDS: Ferrous Sulfate 325 MG TAB PO SCH ×2 (08:27→16:36)
[2017-10-02] MEDS: Polyethylene Glycol 3350 17 GM Packet PO SCH (08:27)
[2017-10-02] MEDS: Ascorbic Acid 500 mg Chewable Tablet PO SCH ×2 (08:27→16:36)
[2017-10-02] MEDS: Clotrimazole 1% Cream 15 GM TUBE TOP SCH ×2 (08:28→20:43)
[2017-10-02] MEDS: Levemir Flexpen 100 UNITS/ML PEN SC SCH (08:28)
[2017-10-02] MEDS: HumaLOG 300 UNITS/3 ML VIAL SC PRN ×2 (10:59→16:36)
--- NOTE | 2017-10-02 12:46 | PRG ---
DATE OF SERVICE: 10/02/2017 SUBJECTIVE: The patient has no complaints. Nurses report no change in condition. Patient has remai nanda afebrile. OBJECTIVE: GENERAL: The patient is awake, appears comfortable and in no distress. She has been prepared to be placed up in a chair for breakfast. VITAL SIGNS: Shows a temperature 97.6, pulse 90, respirations 20, O2 saturation 94% on room air, blo od pressure 112/58. LUNGS: Have good breath sounds. There is some minimal rhonchi on expiration, but did not hear any w heeze. HEART: Regular rate. EXTREMITIES: Left fourth digit, the redness around the nail fold has resolved. There is a defect ov er the proximal portion of the nail plate secondary to previous injury or inflammation of the nail, p robably a result of paronychia that has resolved. LABORATORY DATA: FBS this morning was 130. ASSESSMENT: 1. Bacteremia. A. The 2 blood cultures drawn on 09/22/2017 were both positive for Staph epidermidis and Staph capit is. Both of these organisms are sensitive to doxycycline and vancomycin and the Staph epi was sensit kika to the cephalosporins. B. Repeat blood cultures drawn on 09/24/2017 showed no growth x2. C. Etiology of the bacteremia, suspect related to the paronychia of the left fourth digit that is re solving. D. Resolved. Remains afebrile. Completed a 7-day course of IV vancomycin on the evening of 018. Presently on doxycycline for a 10-day course. The paronychia of the left fourth digit has reso lved as of 10/02/2017. 2. Asthmatic bronchitis with wheezing. A. Improved with mild expiratory rhonchi on expiration as of 10/02/2017. 3. Congestive heart failure. A. Resolved as of 10/01/2017. B. No recurrence of acute congestive heart failure as of 10/02/2017. 4. Generalized weakness. 5. Closed oblique fracture of the right tibia and fibula and the proximal tibial shaft and fibular s haft. A. 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 B. Managed with a long leg knee immobilizer. C. Tolerating sitting up in a chair. Comfortable as of 09/30/2017. D. Repeat x-ray of the tibia, fibula on 09/22/2017 shows no change and no signs of healing. 6. Chronic atrial fibrillation. A. Rate controlled. B. Not a candidate for anticoagulation. 7. Seizure disorder, controlled. 8. Diabetes type A. Glucose mildly low on the morning of 09/28/2017, improved, on recheck, asymptomatic. B. Controlled as of 10/02/2017. 9. 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 PLAN: Continue physical therapy. We will continue to gradually taper the prednisone. Continue neb treatments.
[2017-10-02] MEDS: Magnesium Oxide 400 MG TAB PO SCH (20:42)
[2017-10-02] MEDS: Multivit, Therapeutic 1 TAB PO SCH (20:42)
[2017-10-03] MEDS: Polyethylene Glycol 3350 17 GM Packet PO SCH (08:42)
[2017-10-03] MEDS: Furosemide 40 MG TAB PO SCH (08:42)
[2017-10-03] MEDS: Senokot S 8.6-50 MG TAB PO SCH ×2 (08:42→21:24)
[2017-10-03] MEDS: Famotidine 20 MG TAB PO SCH (08:42)
[2017-10-03] MEDS: Metoprolol Tartrate 25 MG TAB PO SCH ×2 (08:43→21:24)
[2017-10-03] MEDS: predniSONE 20 MG TAB PO SCH (08:43)
[2017-10-03] MEDS: metFORMIN 500 MG TAB PO SCH ×2 (08:43→16:31)
[2017-10-03] MEDS: Doxycycline 100 MG CAP PO SCH ×2 (08:43→21:23)
[2017-10-03] MEDS: Ascorbic Acid 500 mg Chewable Tablet PO SCH ×2 (08:43→16:31)
[2017-10-03] MEDS: Ferrous Sulfate 325 MG TAB PO SCH ×2 (08:43→16:32)
[2017-10-03] MEDS: Gabapentin 300 MG CAP PO SCH ×2 (08:43→21:23)
[2017-10-03] MEDS: Levemir Flexpen 100 UNITS/ML PEN SC SCH (08:45)
[2017-10-03] MEDS: Clotrimazole 1% Cream 15 GM TUBE TOP SCH ×2 (08:45→21:26)
[2017-10-03] MEDS: Enoxaparin Sodium 30 MG/0.3 ML SYRINGE SC SCH (08:45)
[2017-10-03] MEDS: HumaLOG 300 UNITS/3 ML VIAL SC PRN ×2 (10:59→16:29)
[2017-10-03] MEDS: Magnesium Oxide 400 MG TAB PO SCH (21:24)
[2017-10-03] MEDS: Multivit, Therapeutic 1 TAB PO SCH (21:24)
[2017-10-04] MEDS: Senokot S 8.6-50 MG TAB PO SCH ×2 (09:21→20:20)
[2017-10-04] MEDS: Gabapentin 300 MG CAP PO SCH ×2 (09:22→20:20)
[2017-10-04] MEDS: metFORMIN 500 MG TAB PO SCH ×2 (09:22→17:02)
[2017-10-04] MEDS: Doxycycline 100 MG CAP PO SCH ×2 (09:22→20:20)
[2017-10-04] MEDS: Ferrous Sulfate 325 MG TAB PO SCH ×2 (09:22→17:02)
[2017-10-04] MEDS: Furosemide 40 MG TAB PO SCH (09:22)
[2017-10-04] MEDS: Ascorbic Acid 500 mg Chewable Tablet PO SCH ×2 (09:22→17:01)
[2017-10-04] MEDS: Famotidine 20 MG TAB PO SCH (09:22)
[2017-10-04] MEDS: Metoprolol Tartrate 25 MG TAB PO SCH ×2 (09:22→20:21)
[2017-10-04] MEDS: Enoxaparin Sodium 30 MG/0.3 ML SYRINGE SC SCH (09:23)
[2017-10-04] MEDS: Polyethylene Glycol 3350 17 GM Packet PO SCH (09:23)
[2017-10-04] MEDS: Clotrimazole 1% Cream 15 GM TUBE TOP SCH ×2 (09:24→20:25)
[2017-10-04] MEDS: Levemir Flexpen 100 UNITS/ML PEN SC SCH (09:24)
[2017-10-04] MEDS: predniSONE 20 MG TAB PO SCH (09:27)
--- NOTE | 2017-10-04 12:05 | PRG ---
DATE OF SERVICE: 10/04/2017 SUBJECTIVE: The patient said she is feeling better. Her breathing is doing good. The patient said that her finger is not giving her any trouble. Physical therapy continues to work with the patient. She is still requiring moderate to maximum assist on supine to sitting, maximum assist with sitting to standing. Moderate assistance of transfer from bed to a chair. The patient using a stand and piv ot technique. OBJECTIVE: The patient is sitting up in a chair eating her breakfast. She is alert, appears comfort able in no distress. Her temperature is 96.8, pulse 98, respirations 18, O2 sat 91% on room air, blo od pressure 118/61. Her lungs are clear. Heart, irregular regular rhythm with adequate ventricular r esponse. Extremities, no edema. Her FBS this morning was 140. ASSESSMENT: 1. Bacteremia. A. The 2 blood cultures drawn on 09/22/2017 were both positive for Staph epidermidis and Staph capit is. Both of these organisms are sensitive to doxycycline and vancomycin and the Staph epi was sensit kika to the cephalosporins. B. Repeat blood cultures drawn on 09/24/2017 showed no growth x2. C. Etiology of the bacteremia, suspect related to the paronychia of the left fourth digit that is re solving. D. Resolved. Remains afebrile. Completed a 7-day course of IV vancomycin on the evening of 018. Presently on doxycycline for a 10-day course. The paronychia of the left fourth digit has reso lved as of 10/02/2017. 2. Asthmatic bronchitis with wheezing. A. Resolving. The patient remains afebrile. The lungs are clear as of 10/04/2017. 3. Congestive heart failure. A. Resolved as of 10/01/2017. B. No recurrence of acute congestive heart failure as of 10/04/2017. 4. Generalized weakness. A. Nonambulatory, still requiring moderate to maximum assist with transfer using a stand and pivot f or transferring from bed to a chair as of 10/04/2017. 5. Closed oblique fracture of the right tibia and fibula and the proximal tibial shaft and fibular s haft. A. 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 B. Managed with a long leg knee immobilizer. C. Tolerating sitting up in a chair. Comfortable as of 09/30/2017. D. Repeat x-ray of the tibia, fibula on 09/22/2017 shows no change and no signs of healing. 6. Chronic atrial fibrillation. A. Rate controlled. B. Not a candidate for anticoagulation. 7. Seizure disorder, controlled. 8. Diabetes type A. Glucose mildly low on the morning of 09/28/2017, improved, on recheck, asymptomatic. B. Controlled as of 10/04/2017. 9. 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 PLAN: The patient is doing better. Her lungs have cleared. She is beginning to be able to help a l ittle bit more with her transfers. We will continue present care. We will reduce her prednisone to 10 mg for 3 days and then discontinue.
[2017-10-04] MEDS: HumaLOG 300 UNITS/3 ML VIAL SC PRN (12:06)
[2017-10-04] MEDS: Magnesium Oxide 400 MG TAB PO SCH (20:20)
[2017-10-04] MEDS: Multivit, Therapeutic 1 TAB PO SCH (20:21)
[2017-10-05] MEDS: Ascorbic Acid 500 mg Chewable Tablet PO SCH ×2 (09:44→17:30)
[2017-10-05] MEDS: Famotidine 20 MG TAB PO SCH (09:45)
[2017-10-05] MEDS: Doxycycline 100 MG CAP PO SCH ×2 (09:45→21:23)
[2017-10-05] MEDS: Senokot S 8.6-50 MG TAB PO SCH ×2 (09:45→21:23)
[2017-10-05] MEDS: Metoprolol Tartrate 25 MG TAB PO SCH ×2 (09:45→21:23)
[2017-10-05] MEDS: metFORMIN 500 MG TAB PO SCH ×2 (09:46→17:31)
[2017-10-05] MEDS: Furosemide 40 MG TAB PO SCH (09:46)
[2017-10-05] MEDS: Gabapentin 300 MG CAP PO SCH ×2 (09:46→21:24)
[2017-10-05] MEDS: Enoxaparin Sodium 30 MG/0.3 ML SYRINGE SC SCH (09:47)
[2017-10-05] MEDS: Clotrimazole 1% Cream 15 GM TUBE TOP SCH ×2 (09:47→21:19)
[2017-10-05] MEDS: Levemir Flexpen 100 UNITS/ML PEN SC SCH (09:47)
[2017-10-05] MEDS: Polyethylene Glycol 3350 17 GM Packet PO SCH (09:47)
[2017-10-05] MEDS: Ferrous Sulfate 325 MG TAB PO SCH ×2 (09:48→17:31)
[2017-10-05] MEDS: HumaLOG 300 UNITS/3 ML VIAL SC PRN ×2 (09:49→12:42)
[2017-10-05] MEDS: Multivit, Therapeutic 1 TAB PO SCH (21:24)
[2017-10-05] MEDS: Magnesium Oxide 400 MG TAB PO SCH (21:24)
[2017-10-06] MEDS: Metoprolol Tartrate 25 MG TAB PO SCH ×2 (09:16→20:18)
[2017-10-06] MEDS: Famotidine 20 MG TAB PO SCH (09:16)
[2017-10-06] MEDS: Gabapentin 300 MG CAP PO SCH ×2 (09:16→20:18)
[2017-10-06] MEDS: Furosemide 40 MG TAB PO SCH (09:16)
[2017-10-06] MEDS: Ascorbic Acid 500 mg Chewable Tablet PO SCH ×2 (09:16→17:09)
[2017-10-06] MEDS: Doxycycline 100 MG CAP PO SCH ×2 (09:16→20:18)
[2017-10-06] MEDS: Senokot S 8.6-50 MG TAB PO SCH ×2 (09:16→20:18)
[2017-10-06] MEDS: metFORMIN 500 MG TAB PO SCH ×2 (09:16→17:10)
[2017-10-06] MEDS: Levemir Flexpen 100 UNITS/ML PEN SC SCH (09:17)
[2017-10-06] MEDS: Enoxaparin Sodium 30 MG/0.3 ML SYRINGE SC SCH (09:17)
[2017-10-06] MEDS: Polyethylene Glycol 3350 17 GM Packet PO SCH (09:18)
[2017-10-06] MEDS: Clotrimazole 1% Cream 15 GM TUBE TOP SCH ×2 (09:18→20:17)
[2017-10-06] MEDS: Ferrous Sulfate 325 MG TAB PO SCH ×2 (09:18→17:09)
[2017-10-06] MEDS: HumaLOG 300 UNITS/3 ML VIAL SC PRN (11:49)
[2017-10-06] MEDS: Magnesium Oxide 400 MG TAB PO SCH (20:18)
[2017-10-06] MEDS: Multivit, Therapeutic 1 TAB PO SCH (20:18)
[2017-10-07] MEDS ORDERED: Levemir Flexpen 100 UNITS/ML PEN SC SCH (09:00)
[2017-10-07] MEDS: Levemir Flexpen 100 UNITS/ML PEN SC SCH (09:22)
[2017-10-07] MEDS: Furosemide 40 MG TAB PO SCH (09:23)
[2017-10-07] MEDS: Senokot S 8.6-50 MG TAB PO SCH ×2 (09:23→21:02)
[2017-10-07] MEDS: Enoxaparin Sodium 30 MG/0.3 ML SYRINGE SC SCH (09:23)
[2017-10-07] MEDS: Metoprolol Tartrate 25 MG TAB PO SCH ×2 (09:23→21:02)
[2017-10-07] MEDS: Doxycycline 100 MG CAP PO SCH ×2 (09:23→21:01)
[2017-10-07] MEDS: metFORMIN 500 MG TAB PO SCH ×2 (09:23→17:09)
[2017-10-07] MEDS: Gabapentin 300 MG CAP PO SCH ×2 (09:23→21:01)
[2017-10-07] MEDS: Ascorbic Acid 500 mg Chewable Tablet PO SCH ×2 (09:23→17:09)
[2017-10-07] MEDS: Clotrimazole 1% Cream 15 GM TUBE TOP SCH ×2 (09:24→21:04)
[2017-10-07] MEDS: Ferrous Sulfate 325 MG TAB PO SCH ×2 (09:24→17:10)
[2017-10-07] MEDS: Polyethylene Glycol 3350 17 GM Packet PO SCH (09:24)
[2017-10-07] MEDS: Famotidine 20 MG TAB PO SCH (09:26)
--- NOTE | 2017-10-07 14:48 | PRG ---
DATE OF SERVICE: 10/07/2017 SUBJECTIVE: The patient has no complaints. Yesterday afternoon, around 4, she had dropped her blood sugar to 43. This quickly ace with a snack. The patient has been off the prednisone, and since , blood sugars are not running quite as high. OBJECTIVE: The patient is lying in bed, alert, appears in no distress. Her vital signs show a tempe rature 98, pulse 86, respirations 20, O2 saturation 94% on room air, blood pressure 121/59. Her lung s are clear. Heart, regular rate. Extremities, no edema. LABORATORY DATA: The patient's FBS yesterday afternoon at 04:15 was 46. This recheck came up to 52 and subsequent hour and a half later 151 and by the evening 234. ASSESSMENT: 1. Bacteremia. A. The 2 blood cultures drawn on 09/22/2017 were both positive for Staph epidermidis and Staph capit is. Both of these organisms are sensitive to doxycycline and vancomycin and the Staph epi was sensit ikka to the cephalosporins. B. Repeat blood cultures drawn on 09/24/2017 showed no growth x2. C. Etiology of the bacteremia, suspect related to the paronychia of the left fourth digit that is re solving. D. Resolved. Remains afebrile. Completed a 7-day course of IV vancomycin on the evening of 018. Presently on doxycycline for a 10-day course. The paronychia of the left fourth digit has reso lved as of 10/02/2017. 2. Asthmatic bronchitis with wheezing. A. Resolved. The patient remains afebrile. Lungs were clear as of 10/06/2017. 3. Congestive heart failure. A. Resolved as of 10/01/2017. B. No recurrence of acute congestive heart failure as of 10/06/2017. 4. Generalized weakness. A. Nonambulatory, still requiring moderate to maximum assist with transfer using a stand and pivot f or transferring from bed to a chair as of 10/04/2017. 5. Closed oblique fracture of the right tibia and fibula and the proximal tibial shaft and fibular s haft. A. 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 B. Managed with a long leg knee immobilizer. C. Tolerating sitting up in a chair. Comfortable as of 09/30/2017. D. Repeat x-ray of the tibia, fibula on 09/22/2017 shows no change and no signs of healing. 6. Chronic atrial fibrillation. A. Rate controlled. B. Not a candidate for anticoagulation. 7. Seizure disorder, controlled. 8. Diabetes, type 2. A. Complicated by mild hypoglycemic episode on the afternoon of 10/06/2017. 9. 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 PLAN: Continue physical therapy. Complete the 10-day course of doxycycline. We will reduce the Lev morgan to 15 units.
[2017-10-07] MEDS: Magnesium Oxide 400 MG TAB PO SCH (21:01)
[2017-10-07] MEDS: Multivit, Therapeutic 1 TAB PO SCH (21:02)
[2017-10-08] MEDS: Ascorbic Acid 500 mg Chewable Tablet PO SCH ×2 (08:18→17:23)
[2017-10-08] MEDS: metFORMIN 500 MG TAB PO SCH ×2 (08:18→17:23)
[2017-10-08] MEDS: Ferrous Sulfate 325 MG TAB PO SCH ×2 (08:18→17:23)
[2017-10-08] MEDS: Clotrimazole 1% Cream 15 GM TUBE TOP SCH ×2 (09:00→20:38)
[2017-10-08] MEDS: Enoxaparin Sodium 30 MG/0.3 ML SYRINGE SC SCH (09:02)
[2017-10-08] MEDS: Doxycycline 100 MG CAP PO SCH ×2 (09:02→20:36)
[2017-10-08] MEDS: Famotidine 20 MG TAB PO SCH (09:03)
[2017-10-08] MEDS: Furosemide 40 MG TAB PO SCH (09:03)
[2017-10-08] MEDS: Levemir Flexpen 100 UNITS/ML PEN SC SCH (09:04)
[2017-10-08] MEDS: Gabapentin 300 MG CAP PO SCH ×2 (09:04→20:35)
[2017-10-08] MEDS: Polyethylene Glycol 3350 17 GM Packet PO SCH (09:05)
[2017-10-08] MEDS: Metoprolol Tartrate 25 MG TAB PO SCH ×2 (09:05→20:38)
[2017-10-08] MEDS: Senokot S 8.6-50 MG TAB PO SCH ×2 (09:05→20:37)
[2017-10-08] MEDS: HumaLOG 300 UNITS/3 ML VIAL SC PRN ×2 (11:30→17:22)
[2017-10-08] MEDS: Multivit, Therapeutic 1 TAB PO SCH (20:37)
[2017-10-08] MEDS: Magnesium Oxide 400 MG TAB PO SCH (20:38)
[2017-10-09] MEDS: Senokot S 8.6-50 MG TAB PO SCH ×2 (09:09→20:44)
[2017-10-09] MEDS: Gabapentin 300 MG CAP PO SCH ×2 (09:09→20:44)
[2017-10-09] MEDS: Ferrous Sulfate 325 MG TAB PO SCH ×2 (09:09→17:09)
[2017-10-09] MEDS: Doxycycline 100 MG CAP PO SCH ×2 (09:09→20:44)
[2017-10-09] MEDS: Metoprolol Tartrate 25 MG TAB PO SCH ×2 (09:09→20:44)
[2017-10-09] MEDS: Ascorbic Acid 500 mg Chewable Tablet PO SCH ×2 (09:09→17:09)
[2017-10-09] MEDS: Furosemide 40 MG TAB PO SCH (09:10)
[2017-10-09] MEDS: Famotidine 20 MG TAB PO SCH (09:10)
[2017-10-09] MEDS: metFORMIN 500 MG TAB PO SCH ×2 (09:10→17:09)
[2017-10-09] MEDS: Polyethylene Glycol 3350 17 GM Packet PO SCH (09:10)
[2017-10-09] MEDS: Enoxaparin Sodium 30 MG/0.3 ML SYRINGE SC SCH (09:11)
[2017-10-09] MEDS: Levemir Flexpen 100 UNITS/ML PEN SC SCH (09:11)
[2017-10-09] MEDS: Clotrimazole 1% Cream 15 GM TUBE TOP SCH ×2 (09:12→20:45)
[2017-10-09] MEDS: HumaLOG 300 UNITS/3 ML VIAL SC PRN (11:22)
--- NOTE | 2017-10-09 12:29 | PRG ---
DATE OF SERVICE: 10/09/2017 SUBJECTIVE: The patient said she is doing good. She continues to work with physical therapy. She i s still requiring moderate assistance on any transferring. She is using pivot to help transfer from bed to a chair and still requiring maximum assistance. OBJECTIVE: The patient is lying in bed, alert, looks very comfortable, in no distress. Temp 96.1, p ulse 75, respirations 20, O2 sat 95% on room air, blood pressure 111/55. Lungs are clear. Heart; ir regular regular rhythm with adequate ventricular response. Extremities, no edema. Right leg externa lly rotated. Her FBS yesterday was 87, at bedtime was 185. ASSESSMENT: 1. Bacteremia. A. The 2 blood cultures drawn on 09/22/2017 were both positive for Staph epidermidis and Staph capit is. Both of these organisms are sensitive to doxycycline and vancomycin and the Staph epi was sensit kika to the cephalosporins. B. Repeat blood cultures drawn on 09/24/2017 showed no growth x2. C. Etiology of the bacteremia, suspect related to the paronychia of the left fourth digit that is re solving. D. Resolved. Remains afebrile. Completed a 7-day course of IV vancomycin on the evening of 018. Presently on doxycycline for a 10-day course. The paronychia of the left fourth digit has reso lved as of 10/02/2017. 2. Asthmatic bronchitis with wheezing. A. Resolved. The patient remains afebrile. Lungs remain clear as of 10/09/2017. 3. Congestive heart failure. A. Resolved as of 10/01/2017. B. No recurrence of acute congestive heart failure as of 10/09/2017. 4. Generalized weakness. A. Nonambulatory, still requiring moderate to maximum assist with transfer using a stand and pivot f or transferring from bed to a chair as of 10/04/2017. 5. Closed oblique fracture of the right tibia and fibula and the proximal tibial shaft and fibular s haft. A. 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 B. Managed with a long leg knee immobilizer. C. Tolerating sitting up in a chair. Comfortable as of 10/09/2017. D. Repeat x-ray of the tibia, fibula on 09/22/2017 shows no change and no signs of healing. 6. Chronic atrial fibrillation. A. Rate controlled. B. Not a candidate for anticoagulation. 7. Seizure disorder, controlled. 8. Diabetes, type 2. A. Complicated by mild hypoglycemic episode on the afternoon of 10/06/2017. B. Controlled with no recurrence of the hypoglycemia as of 10/09/2017. 9. 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 PLAN: Continue present care. Continue physical therapy.
[2017-10-09] MEDS: Multivit, Therapeutic 1 TAB PO SCH (20:44)
[2017-10-09] MEDS: Magnesium Oxide 400 MG TAB PO SCH (20:44)
[2017-10-10] MEDS: Ascorbic Acid 500 mg Chewable Tablet PO SCH ×2 (07:27→15:53)
[2017-10-10] MEDS: Ferrous Sulfate 325 MG TAB PO SCH ×2 (07:27→15:53)
[2017-10-10] MEDS: Polyethylene Glycol 3350 17 GM Packet PO SCH (08:16)
[2017-10-10] MEDS: metFORMIN 500 MG TAB PO SCH ×2 (08:25→16:59)
[2017-10-10] MEDS: Famotidine 20 MG TAB PO SCH (08:25)
[2017-10-10] MEDS: Enoxaparin Sodium 30 MG/0.3 ML SYRINGE SC SCH (08:25)
[2017-10-10] MEDS: Gabapentin 300 MG CAP PO SCH ×2 (08:25→20:06)
[2017-10-10] MEDS: Senokot S 8.6-50 MG TAB PO SCH ×2 (08:25→20:06)
[2017-10-10] MEDS: Doxycycline 100 MG CAP PO SCH ×2 (08:25→20:06)
[2017-10-10] MEDS: Furosemide 40 MG TAB PO SCH (08:26)
[2017-10-10] MEDS: Levemir Flexpen 100 UNITS/ML PEN SC SCH (08:26)
[2017-10-10] MEDS: Metoprolol Tartrate 25 MG TAB PO SCH ×2 (08:26→20:06)
[2017-10-10] MEDS: Clotrimazole 1% Cream 15 GM TUBE TOP SCH ×2 (08:32→20:06)
[2017-10-10] MEDS: Magnesium Oxide 400 MG TAB PO SCH (20:06)
[2017-10-10] MEDS: Multivit, Therapeutic 1 TAB PO SCH (20:06)
[2017-10-11] MEDS: Ascorbic Acid 500 mg Chewable Tablet PO SCH ×2 (07:24→16:50)
[2017-10-11] MEDS: Ferrous Sulfate 325 MG TAB PO SCH ×2 (07:24→16:50)
[2017-10-11] MEDS: Polyethylene Glycol 3350 17 GM Packet PO SCH (08:45)
[2017-10-11] MEDS: Levemir Flexpen 100 UNITS/ML PEN SC SCH (08:46)
[2017-10-11] MEDS: Doxycycline 100 MG CAP PO SCH (08:46)
[2017-10-11] MEDS: Senokot S 8.6-50 MG TAB PO SCH ×2 (08:46→21:06)
[2017-10-11] MEDS: metFORMIN 500 MG TAB PO SCH ×2 (08:46→16:50)
[2017-10-11] MEDS: Gabapentin 300 MG CAP PO SCH ×2 (08:46→21:06)
[2017-10-11] MEDS: Enoxaparin Sodium 30 MG/0.3 ML SYRINGE SC SCH (08:46)
[2017-10-11] MEDS: Furosemide 40 MG TAB PO SCH (08:46)
[2017-10-11] MEDS: Famotidine 20 MG TAB PO SCH (08:46)
[2017-10-11] MEDS: Metoprolol Tartrate 25 MG TAB PO SCH ×2 (08:46→21:06)
[2017-10-11] MEDS: Clotrimazole 1% Cream 15 GM TUBE TOP SCH ×2 (08:47→21:06)
--- NOTE | 2017-10-11 12:17 | PRG ---
DATE OF SERVICE: 10/11/2017 SUBJECTIVE: The patient is doing well this morning. Last evening she was a little bit resistant wit h the nurses and did not want to take medication, but this morning she has been very cooperative. Th e patient seemed to indicate that when she is ready her daughter is going to try to take care of her at home. I have not visited with the daughter to affirm this recently. OBJECTIVE: The patient lying in bed, alert, smiling, appears comfortable and in no distress. Her te mperature is 96.8, pulse 76, respirations 20, O2 sat 95% on room air, blood pressure 116/52. Lungs a re clear. Heart irregular regular rhythm. Extremities, no edema. Right leg externally rotated. He r FBS this morning was 93, last night at bedtime was 127. ASSESSMENT: 1. Bacteremia. A. The 2 blood cultures drawn on 09/22/2017 were both positive for Staph epidermidis and Staph capit is. Both of these organisms are sensitive to doxycycline and vancomycin and the Staph epi was sensit kika to the cephalosporins. B. Repeat blood cultures drawn on 09/24/2017 showed no growth x2. C. Etiology of the bacteremia, suspect related to the paronychia of the left fourth digit that is re solving. D. Resolved. Remains afebrile. Completed a 7-day course of IV vancomycin on the evening of 018. Presently on doxycycline for a 10-day course. The paronychia of the left fourth digit has reso lved as of 10/02/2017. 2. Asthmatic bronchitis with wheezing. A. Resolved. The patient remains afebrile. Lungs remain clear as of 10/11/2017. 3. Congestive heart failure. A. Resolved as of 10/01/2017. B. No recurrence of acute congestive heart failure as of 10/11/2017. 4. Generalized weakness. A. Nonambulatory, still requiring moderate to maximum assist with transfer using a stand and pivot f or transferring from bed to a chair as of 10/04/2017. 5. Closed oblique fracture of the right tibia and fibula and the proximal tibial shaft and fibular s haft. A. 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 B. Managed with a long leg knee immobilizer. C. Tolerating sitting up in a chair. Comfortable as of 10/09/2017. D. Repeat x-ray of the tibia, fibula on 09/22/2017 shows no change and no signs of healing. 6. Chronic atrial fibrillation. A. Rate controlled. B. Not a candidate for anticoagulation. 7. Seizure disorder, controlled. 8. Diabetes, type 2. A. Complicated by mild hypoglycemic episode on the afternoon of 10/06/2017. B. Controlled with no recurrence of the hypoglycemia as of 10/09/2017. 9. 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 PLAN: Continue present care. Next week on the she will be 2 months post-fracture. We will rep eat x-ray and see how that area is doing. Continue physical therapy. Will visit with family dino wilhelm her post-hospital care.
[2017-10-11] MEDS: Multivit, Therapeutic 1 TAB PO SCH (21:06)
[2017-10-11] MEDS: Magnesium Oxide 400 MG TAB PO SCH (21:07)
[2017-10-12] MEDS: Famotidine 20 MG TAB PO SCH (08:41)
[2017-10-12] MEDS: Acetaminophen 325 MG TAB PO PRN (08:41)
[2017-10-12] MEDS: Polyethylene Glycol 3350 17 GM Packet PO SCH (08:42)
[2017-10-12] MEDS: Senokot S 8.6-50 MG TAB PO SCH ×2 (08:42→20:25)
[2017-10-12] MEDS: Ascorbic Acid 500 mg Chewable Tablet PO SCH ×2 (08:42→17:05)
[2017-10-12] MEDS: metFORMIN 500 MG TAB PO SCH ×2 (08:42→17:05)
[2017-10-12] MEDS: Baclofen 10 MG TAB PO PRN (08:42)
[2017-10-12] MEDS: Gabapentin 300 MG CAP PO SCH ×2 (08:46→20:24)
[2017-10-12] MEDS: Furosemide 40 MG TAB PO SCH (08:46)
[2017-10-12] MEDS: Ferrous Sulfate 325 MG TAB PO SCH ×2 (08:47→17:05)
[2017-10-12] MEDS: Enoxaparin Sodium 30 MG/0.3 ML SYRINGE SC SCH (08:47)
[2017-10-12] MEDS: Metoprolol Tartrate 25 MG TAB PO SCH ×2 (08:47→20:24)
[2017-10-12] MEDS: HumaLOG 300 UNITS/3 ML VIAL SC PRN (08:55)
[2017-10-12] MEDS: Levemir Flexpen 100 UNITS/ML PEN SC SCH (08:56)
[2017-10-12] MEDS: Clotrimazole 1% Cream 15 GM TUBE TOP SCH ×2 (08:57→20:24)
[2017-10-12] MEDS: Magnesium Oxide 400 MG TAB PO SCH (20:24)
[2017-10-12] MEDS: Multivit, Therapeutic 1 TAB PO SCH (20:24)
[2017-10-13] MEDS: Enoxaparin Sodium 30 MG/0.3 ML SYRINGE SC SCH (08:32)
[2017-10-13] MEDS: Acetaminophen 325 MG TAB PO PRN ×2 (08:33→17:07)
[2017-10-13] MEDS: Famotidine 20 MG TAB PO SCH (08:34)
[2017-10-13] MEDS: metFORMIN 500 MG TAB PO SCH ×2 (08:34→17:07)
[2017-10-13] MEDS: Gabapentin 300 MG CAP PO SCH ×2 (08:34→21:22)
[2017-10-13] MEDS: Ascorbic Acid 500 mg Chewable Tablet PO SCH ×2 (08:34→17:08)
[2017-10-13] MEDS: Furosemide 40 MG TAB PO SCH (08:34)
[2017-10-13] MEDS: Ferrous Sulfate 325 MG TAB PO SCH ×2 (08:35→17:08)
[2017-10-13] MEDS: Baclofen 10 MG TAB PO PRN ×2 (08:35→17:07)
[2017-10-13] MEDS: Levemir Flexpen 100 UNITS/ML PEN SC SCH (08:38)
[2017-10-13] MEDS: Senokot S 8.6-50 MG TAB PO SCH ×2 (08:39→21:22)
[2017-10-13] MEDS: Metoprolol Tartrate 25 MG TAB PO SCH ×2 (08:40→21:22)
[2017-10-13] MEDS: Polyethylene Glycol 3350 17 GM Packet PO SCH (08:40)
[2017-10-13] MEDS: Clotrimazole 1% Cream 15 GM TUBE TOP SCH ×2 (08:41→21:21)
[2017-10-13] MEDS: HumaLOG 300 UNITS/3 ML VIAL SC PRN (12:04)
[2017-10-13] MEDS: Magnesium Oxide 400 MG TAB PO SCH (21:22)
[2017-10-13] MEDS: Multivit, Therapeutic 1 TAB PO SCH (21:22)
[2017-10-14] MEDS: HumaLOG 300 UNITS/3 ML VIAL SC PRN ×2 (07:17→11:25)
[2017-10-14] MEDS: Gabapentin 300 MG CAP PO SCH ×2 (08:16→19:57)
[2017-10-14] MEDS: Ferrous Sulfate 325 MG TAB PO SCH ×2 (08:16→16:40)
[2017-10-14] MEDS: Furosemide 40 MG TAB PO SCH (08:16)
[2017-10-14] MEDS: Ascorbic Acid 500 mg Chewable Tablet PO SCH ×2 (08:16→16:40)
[2017-10-14] MEDS: metFORMIN 500 MG TAB PO SCH ×2 (08:16→16:40)
[2017-10-14] MEDS: Famotidine 20 MG TAB PO SCH (08:16)
[2017-10-14] MEDS: Senokot S 8.6-50 MG TAB PO SCH ×2 (08:17→19:58)
[2017-10-14] MEDS: Metoprolol Tartrate 25 MG TAB PO SCH ×2 (08:17→19:58)
[2017-10-14] MEDS: Levemir Flexpen 100 UNITS/ML PEN SC SCH (08:17)
[2017-10-14] MEDS: Enoxaparin Sodium 30 MG/0.3 ML SYRINGE SC SCH (08:19)
[2017-10-14] MEDS: Clotrimazole 1% Cream 15 GM TUBE TOP SCH ×2 (08:19→19:56)
[2017-10-14] MEDS: Polyethylene Glycol 3350 17 GM Packet PO SCH (08:24)
--- NOTE | 2017-10-14 08:57 | PRG ---
DATE OF SERVICE: 10/14/2017 SUBJECTIVE: The patient has been doing well. She has not had any trouble with her breathing. Physi daija therapy said she is beginning to help more with transferring, has not been resistant to it, now s he can transfer with just 1 person. OBJECTIVE: The patient is sitting up in a geriatric chair, having just transferred in to the chair b y physical therapy. She looks very comfortable, in no distress. Her vital signs show temperature 96 .6, pulse 63, respirations 18, O2 sat 94% on room air, blood pressure 123/60. Lungs are clear. Hear t; irregularly irregular rhythm. Extremities, no edema. Right leg externally rotated, unchanged. ASSESSMENT: 1. Bacteremia. A. The 2 blood cultures drawn on 09/22/2017 were both positive for Staph epidermidis and Staph capit is. Both of these organisms are sensitive to doxycycline and vancomycin and the Staph epi was sensit kika to the cephalosporins. B. Repeat blood cultures drawn on 09/24/2017 showed no growth x2. C. Etiology of the bacteremia, suspect related to the paronychia of the left fourth digit that is re solving. D. Resolved. Remains afebrile. Completed a 7-day course of IV vancomycin on the evening of 018. Presently on doxycycline for a 10-day course. The paronychia of the left fourth digit has reso lved as of 10/02/2017. 2. Asthmatic bronchitis with wheezing. A. Resolved. The patient remains afebrile. Lungs remain clear as of 10/14/2017. 3. Congestive heart failure. A. Resolved as of 10/01/2017. B. No recurrence of acute congestive heart failure as of 10/14/2017. 4. Generalized weakness. A. Nonambulatory, still requiring moderate to maximum assist with transfer using a stand and pivot f or transferring from bed to a chair as of 10/04/2017. 5. Closed oblique fracture of the right tibia and fibula and the proximal tibial shaft and fibular s haft. A. 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 B. Managed with a long leg knee immobilizer. C. Tolerating sitting up in a chair without any problem and very comfortable. Beginning to be able to assist more with pivot transfer as of 10/14/2017. D. Repeat x-ray of the tibia, fibula on 09/22/2017 shows no change and no signs of healing. 6. Chronic atrial fibrillation. A. Rate controlled. B. Not a candidate for anticoagulation. 7. Seizure disorder, controlled. 8. Diabetes, type 2. A. Complicated by mild hypoglycemic episode on the afternoon of 10/06/2017. B. Controlled with no recurrence of the hypoglycemia as of 10/09/2017. 9. 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 PLAN: Continue present care. Her FBS this morning was 166. She has had no hypoglycemic episode ove r the last 3 days. We will change her neb treatments to every 4 hours as needed and discontinue the scheduled neb treatments.
[2017-10-14] MEDS: Magnesium Oxide 400 MG TAB PO SCH (19:57)
[2017-10-14] MEDS: Multivit, Therapeutic 1 TAB PO SCH (19:58)
[2017-10-15] MEDS: Gabapentin 300 MG CAP PO SCH ×2 (08:11→21:01)
[2017-10-15] MEDS: Senokot S 8.6-50 MG TAB PO SCH (08:11)
[2017-10-15] MEDS: Ferrous Sulfate 325 MG TAB PO SCH ×2 (08:11→16:48)
[2017-10-15] MEDS: Metoprolol Tartrate 25 MG TAB PO SCH ×2 (08:11→21:01)
[2017-10-15] MEDS: Furosemide 40 MG TAB PO SCH (08:11)
[2017-10-15] MEDS: metFORMIN 500 MG TAB PO SCH ×2 (08:11→16:48)
[2017-10-15] MEDS: Ascorbic Acid 500 mg Chewable Tablet PO SCH ×2 (08:11→16:48)
[2017-10-15] MEDS: Enoxaparin Sodium 30 MG/0.3 ML SYRINGE SC SCH (08:12)
[2017-10-15] MEDS: Levemir Flexpen 100 UNITS/ML PEN SC SCH (08:12)
[2017-10-15] MEDS: Polyethylene Glycol 3350 17 GM Packet PO SCH (08:12)
[2017-10-15] MEDS: Famotidine 20 MG TAB PO SCH (08:12)
[2017-10-15] MEDS: Clotrimazole 1% Cream 15 GM TUBE TOP SCH ×2 (08:14→21:12)
[2017-10-15] MEDS ORDERED: Polyethylene Glycol 3350 17 GM Packet PO PRN (10:25)
[2017-10-15] MEDS: HumaLOG 300 UNITS/3 ML VIAL SC PRN (11:42)
[2017-10-15 12:00] LABS: Bilirubin Negative (Negative); Blood, Urine Small (Negative); Clarity Clear (Clear); Glucose, Urine (Dipstick) Negative (Negative); Leukocyte Small (Negative); Nitrite Positive (Negative); Protein, Urine (Dipstick) Negative (Neg-Trace); Urobilinogen 0.2 mg/dL (0.2-1.0); pH, Urine 5.5 (5.0-9.0)
[2017-10-15 12:01] LABS: Bacteria/HPF 1+ HPF (None Seen)
[2017-10-15] MEDS: Magnesium Oxide 400 MG TAB PO SCH (21:01)
[2017-10-15] MEDS: Multivit, Therapeutic 1 TAB PO SCH (21:01)
[2017-10-16] MEDS: Gabapentin 300 MG CAP PO SCH ×2 (08:56→20:19)
[2017-10-16] MEDS: Famotidine 20 MG TAB PO SCH (08:56)
[2017-10-16] MEDS: Metoprolol Tartrate 25 MG TAB PO SCH ×2 (08:56→20:19)
[2017-10-16] MEDS: metFORMIN 500 MG TAB PO SCH ×2 (08:57→17:15)
[2017-10-16] MEDS: Enoxaparin Sodium 30 MG/0.3 ML SYRINGE SC SCH (08:57)
[2017-10-16] MEDS: Ascorbic Acid 500 mg Chewable Tablet PO SCH ×2 (08:57→17:15)
[2017-10-16] MEDS: Ferrous Sulfate 325 MG TAB PO SCH ×2 (08:57→17:15)
[2017-10-16] MEDS: Furosemide 40 MG TAB PO SCH (08:57)
[2017-10-16] MEDS: Levemir Flexpen 100 UNITS/ML PEN SC SCH (08:58)
[2017-10-16] MEDS: Clotrimazole 1% Cream 15 GM TUBE TOP SCH ×2 (09:00→20:18)
--- NOTE | 2017-10-16 10:00 | RAD ---
RIGHT TIBIA FIBULA 2 VIEWS: HISTORY: Followup fracture. COMPARISON: Radiograph 09/20/17. FINDINGS: There is some bridging bone formation at the proximal tibial and fibula fractures. Mild varus angula tion of both fractures. There is anterior displacement of the tibial fracture approximately shaf t width. IMPRESSION: 1. Healing tibial and fibular fractures. Periosteal new bone formation, although there is displacem ent of the tibial fracture approximately shaft width. 2. Developing disuse osteopenia. POS: [facility]
--- NOTE | 2017-10-16 11:38 | PRG ---
DATE OF SERVICE: 10/16/2017 SUBJECTIVE: The patient said she is feeling good. She has no complaint. Nurses report no problems. The daughter was worried about a urinary tract infection. An in and out cath was done and the resu lts of this on 10/15/2017 showed positive nitrite, specific gravity was 1.010. WBCs were 4-6, RBCs 4 -6, epithelial cells were too numerous to count, there was 1+ bacteria. Urine looked like it was con taminated and did not really show evidence of infection other than the possibility of the positive ni trite. Culture pending. OBJECTIVE: The patient is alert, looks very comfortable this morning, in no distress. Her temperatu re is 96.7, pulse 94, respirations 20, O2 sat 95%, blood pressure 118/56. Lungs were clear. Heart, regular rate. Lower extremities, no edema. Right leg is externally rotated, unchanged. Her FBS yes terday morning was 112, this morning is pending, at bedtime it was 166. ASSESSMENT: 1. Bacteremia. A. The 2 blood cultures drawn on 09/22/2017 were both positive for Staph epidermidis and Staph capit is. Both of these organisms are sensitive to doxycycline and vancomycin and the Staph epi was sensit kika to the cephalosporins. B. Repeat blood cultures drawn on 09/24/2017 showed no growth x2. C. Etiology of the bacteremia, suspect related to the paronychia of the left fourth digit that is re solving. D. Resolved. Remains afebrile. Completed a 7-day course of IV vancomycin on the evening of 018. Presently on doxycycline for a 10-day course. The paronychia of the left fourth digit has reso lved as of 10/02/2017. 2. Asthmatic bronchitis with wheezing. A. Resolved. The patient remains afebrile. Lungs remain clear as of 10/16/2017. 3. Congestive heart failure. A. Resolved as of 10/01/2017. B. No recurrence of acute congestive heart failure as of 10/16/2017. 4. Generalized weakness. A. Nonambulatory. Transfers are becoming a little easier. The patient being able to assist a littl e bit more with pivoting as of 10/16/2017. 5. Closed oblique fracture of the right tibia and fibula and the proximal tibial shaft and fibular s haft. A. 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 B. Managed with a long leg knee immobilizer. C. Tolerating sitting up in a chair without any problem and very comfortable. Beginning to be able to assist more with pivot transfer as of 10/16/2017. D. Repeat x-ray of the tibia, fibula on 09/22/2017 shows no change and no signs of healing. 6. Chronic atrial fibrillation. A. Rate controlled. B. Not a candidate for anticoagulation. 7. Seizure disorder, controlled. 8. Diabetes, type 2. A. Complicated by mild hypoglycemic episode on the afternoon of 10/06/2017. B. Controlled with no recurrence of the hypoglycemia as of 10/09/2017. 9. 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 PLAN: Continue physical therapy. Will repeat x-ray of the right tibia fibula. She is now 8 weeks p ost-fall and fracture.
[2017-10-16] MEDS: Multivit, Therapeutic 1 TAB PO SCH (20:19)
[2017-10-16] MEDS: Magnesium Oxide 400 MG TAB PO SCH (20:19)
[2017-10-17] MEDS: Enoxaparin Sodium 30 MG/0.3 ML SYRINGE SC SCH (08:35)
[2017-10-17] MEDS: Ascorbic Acid 500 mg Chewable Tablet PO SCH ×2 (08:35→17:00)
[2017-10-17] MEDS: Furosemide 40 MG TAB PO SCH (08:35)
[2017-10-17] MEDS: Gabapentin 300 MG CAP PO SCH ×2 (08:36→20:19)
[2017-10-17] MEDS: Clotrimazole 1% Cream 15 GM TUBE TOP SCH ×2 (08:36→20:20)
[2017-10-17] MEDS: Ferrous Sulfate 325 MG TAB PO SCH ×2 (08:36→17:00)
[2017-10-17] MEDS: metFORMIN 500 MG TAB PO SCH ×2 (08:36→17:00)
[2017-10-17] MEDS: Famotidine 20 MG TAB PO SCH (08:36)
[2017-10-17] MEDS: Metoprolol Tartrate 25 MG TAB PO SCH ×2 (08:36→20:20)
[2017-10-17] MEDS: Levemir Flexpen 100 UNITS/ML PEN SC SCH (08:37)
[2017-10-17] MEDS: Baclofen 10 MG TAB PO PRN (08:55)
[2017-10-17] MEDS: Acetaminophen 325 MG TAB PO PRN (08:55)
[2017-10-17] MEDS: Multivit, Therapeutic 1 TAB PO SCH (20:19)
[2017-10-17] MEDS: Magnesium Oxide 400 MG TAB PO SCH (20:19)
[2017-10-18] MEDS: Ascorbic Acid 500 mg Chewable Tablet PO SCH ×2 (07:57→16:26)
[2017-10-18] MEDS: Ferrous Sulfate 325 MG TAB PO SCH ×2 (07:58→16:26)
[2017-10-18] MEDS: Clotrimazole 1% Cream 15 GM TUBE TOP SCH ×2 (07:59→20:25)
[2017-10-18] MEDS: Enoxaparin Sodium 30 MG/0.3 ML SYRINGE SC SCH (08:00)
[2017-10-18] MEDS: Famotidine 20 MG TAB PO SCH (08:00)
[2017-10-18] MEDS: Gabapentin 300 MG CAP PO SCH ×2 (08:01→20:26)
[2017-10-18] MEDS: metFORMIN 500 MG TAB PO SCH ×2 (08:02→16:26)
[2017-10-18] MEDS: Furosemide 40 MG TAB PO SCH (08:04)
[2017-10-18] MEDS: Metoprolol Tartrate 25 MG TAB PO SCH ×2 (08:04→20:27)
[2017-10-18] MEDS: Levemir Flexpen 100 UNITS/ML PEN SC SCH (08:06)
--- NOTE | 2017-10-18 11:38 | PRG ---
DATE OF SERVICE: 10/18/2017 SUBJECTIVE: The patient has no complaints. Nurses report no problems with her or change in her cond ition. Her appetite has been good. She tolerated sitting up in a chair without any difficulty. The patient's is transferring with a pivot and still requiring moderate to maximum assistance. She is n ot ambulatory. OBJECTIVE: The patient is sitting up in bed. She is alert and appears very comfortable in no distre ss. Her temperature is 97.3, pulse 87, respirations 18, O2 sat 96% on room air, blood pressure 124/5 7. Lungs were clear. Heart, regular rate. Extremities showed no edema. Right lower leg has no carmela ma and externally rotated. Repeat x-ray 8 weeks post-fracture of the tibia done on 10/16/2017 showed bridging bone formation at the proximal tibia and fibula fracture, indicating healing. There is fatimah nadya angulation of both fractures and there is still some anterior displacement of the tibial fracture , approximately half the width of the shaft. ASSESSMENT: 1. Bacteremia. A. The 2 blood cultures drawn on 09/22/2017 were both positive for Staph epidermidis and Staph capit is. Both of these organisms are sensitive to doxycycline and vancomycin and the Staph epi was sensit kika to the cephalosporins. B. Repeat blood cultures drawn on 09/24/2017 showed no growth x2. C. Etiology of the bacteremia, suspect related to the paronychia of the left fourth digit that is re solving. D. Resolved. Remains afebrile. Completed a 7-day course of IV vancomycin on the evening of 018. Presently on doxycycline for a 10-day course. The paronychia of the left fourth digit has reso lved as of 10/02/2017. 2. Asthmatic bronchitis with wheezing. A. Resolved. The patient remains afebrile. Lungs remain clear as of 10/18/2017. 3. Congestive heart failure. A. Resolved as of 10/01/2017. B. No recurrence of acute congestive heart failure as of 10/18/2017. 4. Generalized weakness. A. Nonambulatory. Transfers are becoming a little easier. The patient being able to assist a littl e bit more with pivoting as of 10/18/2017. 5. Closed oblique fracture of the right tibia and fibula and the proximal tibial shaft and fibular s haft. A. 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 B. Managed with a long leg knee immobilizer. C. Tolerating sitting up in a chair without any problem and very comfortable. Beginning to be able to assist more with pivot transfer as of 10/16/2017. D. Repeat x-ray of the tibia, fibula on 10/16/2017, 8 weeks post-fracture shows signs of callus form ation and healing. There is some mild valgus angulation, and some anterior overriding about half the width of the shaft. 6. Chronic atrial fibrillation. A. Rate controlled. B. Not a candidate for anticoagulation. 7. Seizure disorder, controlled. 8. Diabetes, type 2. A. Complicated by mild hypoglycemic episode on the afternoon of 10/06/2017. B. Controlled with no recurrence of the hypoglycemia as of 10/09/2017. 9. 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 PLAN: The patient is doing well. She is still requiring moderate to maximum assistance with transfe rs. The fracture is healing. She has not been ambulatory with that right leg. We will continue the physical therapy. We will talk with her family about long range plans.
[2017-10-18] MEDS: Magnesium Oxide 400 MG TAB PO SCH (20:26)
[2017-10-18] MEDS: Multivit, Therapeutic 1 TAB PO SCH (20:27)
[2017-10-19] MEDS: metFORMIN 500 MG TAB PO SCH ×2 (07:42→16:37)
[2017-10-19] MEDS: HumaLOG 300 UNITS/3 ML VIAL SC PRN (07:42)
[2017-10-19] MEDS: Ferrous Sulfate 325 MG TAB PO SCH ×2 (07:42→16:37)
[2017-10-19] MEDS: Ascorbic Acid 500 mg Chewable Tablet PO SCH ×2 (07:42→16:37)
[2017-10-19] MEDS: Clotrimazole 1% Cream 15 GM TUBE TOP SCH ×2 (09:50→20:24)
[2017-10-19] MEDS: Gabapentin 300 MG CAP PO SCH ×2 (09:51→20:24)
[2017-10-19] MEDS: Levemir Flexpen 100 UNITS/ML PEN SC SCH (09:51)
[2017-10-19] MEDS: Famotidine 20 MG TAB PO SCH (09:51)
[2017-10-19] MEDS: Furosemide 40 MG TAB PO SCH (09:51)
[2017-10-19] MEDS: Enoxaparin Sodium 30 MG/0.3 ML SYRINGE SC SCH (09:51)
[2017-10-19] MEDS: Metoprolol Tartrate 25 MG TAB PO SCH ×2 (09:52→20:24)
[2017-10-19] MEDS: Multivit, Therapeutic 1 TAB PO SCH (20:24)
[2017-10-19] MEDS: Magnesium Oxide 400 MG TAB PO SCH (20:24)
[2017-10-20] MEDS: Ascorbic Acid 500 mg Chewable Tablet PO SCH ×2 (07:55→17:08)
[2017-10-20] MEDS: metFORMIN 500 MG TAB PO SCH ×2 (07:55→17:09)
[2017-10-20] MEDS: Ferrous Sulfate 325 MG TAB PO SCH ×2 (07:55→17:08)
[2017-10-20] MEDS: Furosemide 40 MG TAB PO SCH (08:57)
[2017-10-20] MEDS: Famotidine 20 MG TAB PO SCH (08:57)
[2017-10-20] MEDS: Metoprolol Tartrate 25 MG TAB PO SCH ×2 (08:57→20:50)
[2017-10-20] MEDS: Gabapentin 300 MG CAP PO SCH ×2 (08:57→20:49)
[2017-10-20] MEDS: Enoxaparin Sodium 30 MG/0.3 ML SYRINGE SC SCH (08:57)
[2017-10-20] MEDS: Clotrimazole 1% Cream 15 GM TUBE TOP SCH ×2 (08:59→20:48)
[2017-10-20] MEDS: Levemir Flexpen 100 UNITS/ML PEN SC SCH (08:59)
[2017-10-20] MEDS: HumaLOG 300 UNITS/3 ML VIAL SC PRN (17:09)
[2017-10-20] MEDS: Magnesium Oxide 400 MG TAB PO SCH (20:50)
[2017-10-20] MEDS: Multivit, Therapeutic 1 TAB PO SCH (20:50)
[2017-10-21] MEDS: Ferrous Sulfate 325 MG TAB PO SCH ×2 (07:32→16:40)
[2017-10-21] MEDS: Ascorbic Acid 500 mg Chewable Tablet PO SCH ×2 (07:32→16:40)
[2017-10-21] MEDS: Enoxaparin Sodium 30 MG/0.3 ML SYRINGE SC SCH (08:22)
[2017-10-21] MEDS: Gabapentin 300 MG CAP PO SCH ×2 (08:23→20:23)
[2017-10-21] MEDS: Famotidine 20 MG TAB PO SCH (08:23)
[2017-10-21] MEDS: Furosemide 40 MG TAB PO SCH (08:24)
[2017-10-21] MEDS: metFORMIN 500 MG TAB PO SCH ×2 (08:24→16:40)
[2017-10-21] MEDS: Metoprolol Tartrate 25 MG TAB PO SCH ×2 (08:24→20:23)
[2017-10-21] MEDS: Levemir Flexpen 100 UNITS/ML PEN SC SCH (08:24)
[2017-10-21] MEDS: Clotrimazole 1% Cream 15 GM TUBE TOP SCH ×2 (08:25→20:23)
--- NOTE | 2017-10-21 08:55 | PRG ---
DATE OF SERVICE: 10/21/2017 SUBJECTIVE: The patient has been doing well. Physical therapist reports she is transferring easier with pivoting on her left foot. OBJECTIVE: GENERAL: The patient is sitting up in her Nataly chair. She is alert, looks very comfortable and in n o distress. VITAL SIGNS: Shows a temperature of 97.3, pulse 76, respirations 20, O2 sat 91%, blood pressure 104/ 52. LUNGS: Clear. HEART: Regular rate. EXTREMITIES: Right lower leg is unchanged. There is no edema and there is chronic external rotation . LABORATORY DATA: FBS 116. ASSESSMENT: 1. Bacteremia. A. The 2 blood cultures drawn on 09/22/2017 were both positive for Staph epidermidis and Staph capit is. Both of these organisms are sensitive to doxycycline and vancomycin and the Staph epi was sensit kika to the cephalosporins. B. Repeat blood cultures drawn on 09/24/2017 showed no growth x2. C. Etiology of the bacteremia, suspect related to the paronychia of the left fourth digit that is re solving. D. Resolved. Remains afebrile. Completed a 7-day course of IV vancomycin on the evening of 018. Presently on doxycycline for a 10-day course. The paronychia of the left fourth digit has reso lved as of 10/02/2017. 2. Asthmatic bronchitis with wheezing. A. Resolved. The patient remains afebrile. Lungs remain clear as of 10/21/2017. 3. Congestive heart failure. A. Resolved as of 10/01/2017. B. No recurrence of acute congestive heart failure as of 10/21/2017. 4. Generalized weakness. A. Nonambulatory. Transfers are easier. Patient able to assist a little more with pivoting on the left leg as of 10/21/2017. 5. Closed oblique fracture of the right tibia and fibula and the proximal tibial shaft and fibular s haft. A. 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 B. Managed with a long leg knee immobilizer. C. Tolerating sitting up in a chair without any problem and very comfortable. Beginning to be able to assist more with pivot transfer as of 10/16/2017. D. Repeat x-ray of the tibia, fibula on 10/16/2017, 8 weeks post-fracture shows signs of callus form ation and healing. There is some mild valgus angulation, and some anterior overriding about half the width of the shaft. 6. Chronic atrial fibrillation. A. Rate controlled. B. Not a candidate for anticoagulation. 7. Seizure disorder, controlled. 8. Diabetes, type 2. A. Complicated by mild hypoglycemic episode on the afternoon of 10/06/2017. B. Controlled with no recurrence of the hypoglycemia as of 10/09/2017. 9. 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 PLAN: Continue present care. Continue physical therapy. We talked with the patient's son regarding her post-hospital care. We missed each other on calls on several occasions.
[2017-10-21] MEDS ORDERED: Polyethylene Glycol 3350 17 GM Packet PO PRN (11:27)
[2017-10-21] MEDS ORDERED: Bisacodyl 10 MG SUPP PR PRN (11:28)
[2017-10-21] MEDS: HumaLOG 300 UNITS/3 ML VIAL SC PRN (11:38)
[2017-10-21] MEDS: Magnesium Oxide 400 MG TAB PO SCH (20:23)
[2017-10-21] MEDS: Multivit, Therapeutic 1 TAB PO SCH (20:24)
[2017-10-22] MEDS: Acetaminophen 325 MG TAB PO PRN (07:51)
[2017-10-22] MEDS: Gabapentin 300 MG CAP PO SCH ×2 (07:52→20:22)
[2017-10-22] MEDS: Ferrous Sulfate 325 MG TAB PO SCH ×2 (07:52→16:41)
[2017-10-22] MEDS: Metoprolol Tartrate 25 MG TAB PO SCH ×2 (07:52→20:23)
[2017-10-22] MEDS: Ascorbic Acid 500 mg Chewable Tablet PO SCH ×2 (07:52→16:41)
[2017-10-22] MEDS: Famotidine 20 MG TAB PO SCH (07:52)
[2017-10-22] MEDS: Enoxaparin Sodium 40 MG/0.4 ML SYRINGE SC SCH (07:53)
[2017-10-22] MEDS: Furosemide 40 MG TAB PO SCH (07:53)
[2017-10-22] MEDS: metFORMIN 500 MG TAB PO SCH ×2 (07:53→16:41)
[2017-10-22] MEDS: Clotrimazole 1% Cream 15 GM TUBE TOP SCH ×2 (07:53→20:24)
[2017-10-22] MEDS: Levemir Flexpen 100 UNITS/ML PEN SC SCH (07:54)
[2017-10-22] MEDS: HumaLOG 300 UNITS/3 ML VIAL SC PRN (11:59)
[2017-10-22] MEDS: Multivit, Therapeutic 1 TAB PO SCH (20:22)
[2017-10-22] MEDS: Magnesium Oxide 400 MG TAB PO SCH (20:22)
[2017-10-23] MEDS: Levemir Flexpen 100 UNITS/ML PEN SC SCH (08:33)
[2017-10-23] MEDS: Enoxaparin Sodium 40 MG/0.4 ML SYRINGE SC SCH (08:34)
[2017-10-23] MEDS: Ascorbic Acid 500 mg Chewable Tablet PO SCH ×2 (08:34→17:02)
[2017-10-23] MEDS: Gabapentin 300 MG CAP PO SCH ×2 (08:34→20:25)
[2017-10-23] MEDS: Ferrous Sulfate 325 MG TAB PO SCH ×2 (08:34→17:02)
[2017-10-23] MEDS: metFORMIN 500 MG TAB PO SCH ×2 (08:34→17:02)
[2017-10-23] MEDS: Metoprolol Tartrate 25 MG TAB PO SCH ×2 (08:35→20:26)
[2017-10-23] MEDS: Furosemide 40 MG TAB PO SCH (08:35)
[2017-10-23] MEDS: Famotidine 20 MG TAB PO SCH (08:35)
[2017-10-23] MEDS: Clotrimazole 1% Cream 15 GM TUBE TOP SCH ×2 (08:36→20:27)
--- NOTE | 2017-10-23 12:07 | PRG ---
DATE OF SERVICE: 10/23/2017 SUBJECTIVE: The patient has no complaints. Nurses report no change in her condition. OBJECTIVE: The patient is lying in bed. She is awake, appears very comfortable, preparing to get up for her breakfast. Her vital signs show a temperature 96.7, pulse 92, respirations 20, O2 sat 95% o n room air, blood pressure 125/71. Lungs were clear. Heart, regular rate. FBS this morning was 103. Lower extremities showed no edema. Right leg is externally rotated, unchanged and has the knee imm obilizer on. ASSESSMENT: 1. Bacteremia. A. The 2 blood cultures drawn on 09/22/2017 were both positive for Staph epidermidis and Staph capit is. Both of these organisms are sensitive to doxycycline and vancomycin and the Staph epi was sensit kika to the cephalosporins. B. Repeat blood cultures drawn on 09/24/2017 showed no growth x2. C. Etiology of the bacteremia, suspect related to the paronychia of the left fourth digit that is re solving. D. Resolved. Remains afebrile. Completed a 7-day course of IV vancomycin on the evening of 018. Presently on doxycycline for a 10-day course. The paronychia of the left fourth digit has reso lved as of 10/02/2017. 2. Asthmatic bronchitis with wheezing. A. Resolved. The patient remains afebrile. Lungs remain clear as of 10/23/2017. 3. Congestive heart failure. A. Resolved as of 10/01/2017. B. No recurrence of acute congestive heart failure as of 10/23/2017. 4. Generalized weakness. A. Nonambulatory. Transfers are easier. Patient able to assist a little more with pivoting on the left leg as of 10/23/2017. 5. Closed oblique fracture of the right tibia and fibula and the proximal tibial shaft and fibular s haft. A. 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 B. Managed with a long leg knee immobilizer. C. Tolerating sitting up in a chair without any problem and very comfortable. Beginning to be able to assist more with pivot transfer as of 10/16/2017. D. Repeat x-ray of the tibia, fibula on 10/16/2017, 8 weeks post-fracture shows signs of callus form ation and healing. There is some mild valgus angulation, and some anterior overriding about half the width of the shaft. 6. Chronic atrial fibrillation. A. Rate controlled. B. Not a candidate for anticoagulation. 7. Seizure disorder, controlled. 8. Diabetes, type 2. A. Complicated by mild hypoglycemic episode on the afternoon of 10/06/2017. B. Controlled with no recurrence of the hypoglycemia as of 10/23/2017. 9. 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 PLAN: Continue present care. Continue physical therapy.
[2017-10-23] MEDS: Multivit, Therapeutic 1 TAB PO SCH (20:25)
[2017-10-23] MEDS: Magnesium Oxide 400 MG TAB PO SCH (20:26)
[2017-10-24 05:32] LABS: Anion Gap 15 mmol/L (10-20); BUN (Urea Nitrogen) 22 mg/dL (9.8-20.1); Calc. Creatinine Clearance 48 mL/min (70-130); Calcium 8.6 mg/dL (7.8-10.44); Carbon Dioxide 30 mmol/L (23-31); Chloride 104 mmol/L (98-107); Estimated GFR-MDRD 52; Glucose 88 mg/dL (83-110); Potassium 4.3 mmol/L (3.5-5.1); Sodium 145 mmol/L (136-145)
[2017-10-24 05:53] LABS: #Basophils 0.1 thou/uL (0.0-0.2); #Eosinphils 0.9 thou/uL (0.0-0.7); #Lymphocytes 3.1 thou/uL (1.20-3.40); #Neutrophils 3.4 thou/uL (1.40-6.50); %Basophils 1.6 % (0.0-1.0); %Eosinophils 10.2 % (0.0-10.0); %Lymphocytes 36.3 % (21.0-51.0); %Neutrophils 39.9 % (42.0-75.0); Anisocytosis SLIGHT = 6-15 cells (100X) (0-5/hpf); Hemoglobin 9.3 g/dL (12.0-16.0); Hypochromia MODERATE=16-30 cells (100X) (0-5/hpf); MDiff Complete? YES; Mean Corpuscular HGB CONC 31.6 g/dL (32.0-36.0); Mean Corpuscular Hemoglobin 26.9 pg (27.0-31.0); Mean Corpuscular Volume 85.3 fL (78.0-98.0); Mean Platelet Volume 6.5 fL (7.4-10.4); PLT Morphology Comment Appears Adequate; Platelet Count 296 thou/uL (130-400); Poikilocytosis SLIGHT = 6-15 cells (100X) (0-5/hpf); RBC Distribution Width 21.3 % (11.5-14.5); RBC Morphology Abnormal; Red Blood Cell (RBC) Count 3.45 mill/uL (4.20-5.40); White Blood Cell (WBC) Count 8.5 thou/uL (4.8-10.8)
[2017-10-24] MEDS: Ascorbic Acid 500 mg Chewable Tablet PO SCH ×2 (07:50→17:00)
[2017-10-24] MEDS: Ferrous Sulfate 325 MG TAB PO SCH ×2 (07:50→17:00)
[2017-10-24] MEDS: metFORMIN 500 MG TAB PO SCH ×2 (07:50→17:00)
[2017-10-24] MEDS: Clotrimazole 1% Cream 15 GM TUBE TOP SCH ×2 (10:51→21:02)
[2017-10-24] MEDS: Famotidine 20 MG TAB PO SCH (10:52)
[2017-10-24] MEDS: Furosemide 40 MG TAB PO SCH (10:52)
[2017-10-24] MEDS: Enoxaparin Sodium 40 MG/0.4 ML SYRINGE SC SCH (10:52)
[2017-10-24] MEDS: Gabapentin 300 MG CAP PO SCH ×2 (10:53→21:01)
[2017-10-24] MEDS: Levemir Flexpen 100 UNITS/ML PEN SC SCH (10:53)
[2017-10-24] MEDS: Metoprolol Tartrate 25 MG TAB PO SCH ×2 (10:54→21:02)
[2017-10-24 11:43] LABS: Hemoglobin A1c 6.7 % (4.0-6.0)
[2017-10-24] MEDS: Multivit, Therapeutic 1 TAB PO SCH (21:01)
[2017-10-24] MEDS: Magnesium Oxide 400 MG TAB PO SCH (21:01)
[2017-10-25] MEDS: Ascorbic Acid 500 mg Chewable Tablet PO SCH ×2 (07:45→16:45)
[2017-10-25] MEDS: Ferrous Sulfate 325 MG TAB PO SCH ×2 (07:45→16:45)
[2017-10-25] MEDS: metFORMIN 500 MG TAB PO SCH ×2 (07:50→16:45)
[2017-10-25] MEDS: Famotidine 20 MG TAB PO SCH (07:57)
[2017-10-25] MEDS: Metoprolol Tartrate 25 MG TAB PO SCH ×2 (07:57→20:31)
[2017-10-25] MEDS: Furosemide 40 MG TAB PO SCH (07:57)
[2017-10-25] MEDS: Gabapentin 300 MG CAP PO SCH ×2 (07:57→20:28)
[2017-10-25] MEDS: Enoxaparin Sodium 40 MG/0.4 ML SYRINGE SC SCH (07:58)
[2017-10-25] MEDS: Clotrimazole 1% Cream 15 GM TUBE TOP SCH ×2 (07:59→20:27)
[2017-10-25] MEDS: Levemir Flexpen 100 UNITS/ML PEN SC SCH (08:22)
[2017-10-25] MEDS: Magnesium Oxide 400 MG TAB PO SCH (20:28)
[2017-10-25] MEDS: Multivit, Therapeutic 1 TAB PO SCH (20:28)
[2017-10-26] MEDS: Ascorbic Acid 500 mg Chewable Tablet PO SCH ×2 (08:48→16:44)
[2017-10-26] MEDS: metFORMIN 500 MG TAB PO SCH ×2 (08:48→16:44)
[2017-10-26] MEDS: Famotidine 20 MG TAB PO SCH (08:48)
[2017-10-26] MEDS: Gabapentin 300 MG CAP PO SCH ×2 (08:49→20:20)
[2017-10-26] MEDS: Enoxaparin Sodium 40 MG/0.4 ML SYRINGE SC SCH (08:49)
[2017-10-26] MEDS: Ferrous Sulfate 325 MG TAB PO SCH ×2 (08:49→16:44)
[2017-10-26] MEDS: Metoprolol Tartrate 25 MG TAB PO SCH ×2 (08:49→20:20)
[2017-10-26] MEDS: Furosemide 40 MG TAB PO SCH (08:49)
[2017-10-26] MEDS: Levemir Flexpen 100 UNITS/ML PEN SC SCH (08:50)
[2017-10-26] MEDS: Clotrimazole 1% Cream 15 GM TUBE TOP SCH ×2 (08:50→20:26)
--- NOTE | 2017-10-26 10:25 | PRG ---
DATE OF SERVICE: 10/25/2017 SUBJECTIVE: The patient has no complaint. The patient is up in her Nataly chair this morning visiting with her son, Juan. OBJECTIVE: The patient is alert, appears comfortable in no distress. Her temperature is 96.5, pulse 89, respirations 18, O2 sat 93% on room air, blood pressure 100/63. Lungs were clear. Heart, regul ar rate. Extremities, no edema. Right leg externally rotated, unchanged. She still is in her knee immobilizer. Her FBS this morning was 95, yesterday was 113, her hemoglobin A1c 6.7. ASSESSMENT: 1. Bacteremia. A. The 2 blood cultures drawn on 09/22/2017 were both positive for Staph epidermidis and Staph capit is. Both of these organisms are sensitive to doxycycline and vancomycin and the Staph epi was sensit kika to the cephalosporins. B. Repeat blood cultures drawn on 09/24/2017 showed no growth x2. C. Etiology of the bacteremia, suspect related to the paronychia of the left fourth digit that is re solving. D. Resolved. Remains afebrile. Completed a 7-day course of IV vancomycin on the evening of 018. Presently on doxycycline for a 10-day course. The paronychia of the left fourth digit has reso lved as of 10/02/2017. 2. Asthmatic bronchitis with wheezing. A. Resolved. The patient remains afebrile. Lungs remain clear as of 10/25/2017. 3. Congestive heart failure. A. Resolved as of 10/01/2017. B. No recurrence of acute congestive heart failure as of 10/25/2017. 4. Generalized weakness. A. Nonambulatory. Transfers are easier. Patient able to assist a little more with pivoting on the left leg as of 10/25/2017. 5. Closed oblique fracture of the right tibia and fibula and the proximal tibial shaft and fibular s haft. A. 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 B. Managed with a long leg knee immobilizer. C. Tolerating sitting up in a chair without any problem and very comfortable. Beginning to be able to assist more with pivot transfer as of 10/16/2017. D. Repeat x-ray of the tibia, fibula on 10/16/2017, 8 weeks post-fracture shows signs of callus form ation and healing. There is some mild valgus angulation, and some anterior overriding about half the width of the shaft. 6. Chronic atrial fibrillation. A. Rate controlled. B. Not a candidate for anticoagulation. 7. Seizure disorder, controlled. 8. Diabetes, type 2. A. Complicated by mild hypoglycemic episode on the afternoon of 10/06/2017. B. Well controlled with hemoglobin A1c of 6.7 and FBS of 95 as of 10/25/2017. 9. 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 PLAN: Continue present care. Continue physical therapy. I had a long visit with her son, Juan, who lives in [place]. The patient had prior to this fall and fracture been living with her daughter, Noman burns. The family is trying to decide whether or not to try to manage her in the home versus managem ent in a custodial. They are trying to weigh the pros and cons of each. The patient will certain ly need supervised living arrangement and will continue to need assistance with all her ADLs and will need an able body caregiver to assist with any transfers.
[2017-10-26] MEDS: HumaLOG 300 UNITS/3 ML VIAL SC PRN (16:44)
[2017-10-26] MEDS: Magnesium Oxide 400 MG TAB PO SCH (20:20)
[2017-10-26] MEDS: Multivit, Therapeutic 1 TAB PO SCH (20:20)
[2017-10-27] MEDS: Ascorbic Acid 500 mg Chewable Tablet PO SCH ×2 (08:06→16:35)
[2017-10-27] MEDS: Ferrous Sulfate 325 MG TAB PO SCH ×2 (08:06→16:34)
[2017-10-27] MEDS: metFORMIN 500 MG TAB PO SCH ×2 (08:06→16:34)
[2017-10-27] MEDS: Furosemide 40 MG TAB PO SCH (08:06)
[2017-10-27] MEDS: Gabapentin 300 MG CAP PO SCH ×2 (08:06→20:15)
[2017-10-27] MEDS: Famotidine 20 MG TAB PO SCH (08:06)
[2017-10-27] MEDS: Enoxaparin Sodium 40 MG/0.4 ML SYRINGE SC SCH (08:07)
[2017-10-27] MEDS: Clotrimazole 1% Cream 15 GM TUBE TOP SCH ×2 (08:07→21:51)
[2017-10-27] MEDS: Levemir Flexpen 100 UNITS/ML PEN SC SCH (08:07)
[2017-10-27] MEDS: Metoprolol Tartrate 25 MG TAB PO SCH ×2 (08:15→20:15)
[2017-10-27] MEDS: Acetaminophen 325 MG TAB PO PRN (11:14)
[2017-10-27] MEDS: Baclofen 10 MG TAB PO PRN (11:14)
[2017-10-27] MEDS: Multivit, Therapeutic 1 TAB PO SCH (20:15)
[2017-10-27] MEDS: Magnesium Oxide 400 MG TAB PO SCH (20:15)
[2017-10-28] MEDS: Ascorbic Acid 500 mg Chewable Tablet PO SCH ×2 (09:07→17:16)
[2017-10-28] MEDS: metFORMIN 500 MG TAB PO SCH ×2 (09:07→17:15)
[2017-10-28] MEDS: Ferrous Sulfate 325 MG TAB PO SCH ×2 (09:07→17:16)
[2017-10-28] MEDS: Clotrimazole 1% Cream 15 GM TUBE TOP SCH ×2 (09:08→21:06)
[2017-10-28] MEDS: Enoxaparin Sodium 40 MG/0.4 ML SYRINGE SC SCH (09:08)
[2017-10-28] MEDS: Famotidine 20 MG TAB PO SCH (09:09)
[2017-10-28] MEDS: Levemir Flexpen 100 UNITS/ML PEN SC SCH (09:09)
[2017-10-28] MEDS: Gabapentin 300 MG CAP PO SCH ×2 (09:09→21:05)
[2017-10-28] MEDS: Furosemide 40 MG TAB PO SCH (09:09)
[2017-10-28] MEDS: Metoprolol Tartrate 25 MG TAB PO SCH ×2 (09:12→21:06)
--- NOTE | 2017-10-28 12:55 | PRG ---
DATE OF SERVICE: 10/28/2017 SUBJECTIVE: The patient has been doing well. She has had no complaint. Nurses have said her condit ion is unchanged, and she has had no new complaints. Her daughter is planning on taking her home on 11/04/2017. Her daughter, Silvia, who has been her assisted caregiver, is planning on getting a Hoy er lift to assist with the transfers. OBJECTIVE: The patient is up in a geriatric chair. She is alert, appears very comfortable, and in n o distress. Her temperature is 97.5, pulse 76, respirations 18, O2 sat 96% on room air, blood pressu re 119/62. Her lungs were clear. Heart, regular rate. Extremities, no edema. LABORATORY DATA: Her FBS 138. ASSESSMENT: 1. Bacteremia. A. The 2 blood cultures drawn on 09/22/2017 were both positive for Staph epidermidis and Staph capit is. Both of these organisms are sensitive to doxycycline and vancomycin and the Staph epi was sensit kika to the cephalosporins. B. Repeat blood cultures drawn on 09/24/2017 showed no growth x2. C. Etiology of the bacteremia, suspect related to the paronychia of the left fourth digit that is re solving. D. Resolved. Remains afebrile. Completed a 7-day course of IV vancomycin on 09/30/2017. Completed a 10-day course of doxycycline. Paronychia of the left fourth finger resolved as of 10/02/2017. 2. Asthmatic bronchitis with wheezing. A. Resolved. The patient remains afebrile. Lungs remain clear as of 10/25/2017. 3. Congestive heart failure. A. Resolved as of 10/01/2017. B. No recurrence of acute congestive heart failure as of 10/28/2017. 4. Generalized weakness. A. Nonambulatory. Transfers are easier. Patient able to assist a little more with pivoting on the left leg as of 10/28/2017. 5. Closed oblique fracture of the right tibia and fibula and the proximal tibial shaft and fibular s haft. A. 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 B. Managed with a long leg knee immobilizer. C. Tolerating sitting up in a chair without any problem and very comfortable. Beginning to be able to assist more with pivot transfer as of 10/16/2017. D. Repeat x-ray of the tibia, fibula on 10/16/2017, 8 weeks post-fracture shows signs of callus form ation and healing. There is some mild valgus angulation, and some anterior overriding about half the width of the shaft. 6. Chronic atrial fibrillation. A. Rate controlled. B. Not a candidate for anticoagulation. 7. Seizure disorder, controlled. 8. Diabetes, type 2. A. Complicated by mild hypoglycemic episode on the afternoon of 10/06/2017. B. Well controlled with hemoglobin A1c of 6.7 and FBS of 95 as of 10/25/2017. FBS 138 on 10/28/2017 . 9. 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 PLAN: The patient is very stable. She will continue the physical therapy if therapist will instruct the patient's daughter, Silvia, with the use of the Denny lift. Anticipate her discharge on 2017.
[2017-10-28] MEDS: Multivit, Therapeutic 1 TAB PO SCH (21:06)
[2017-10-28] MEDS: Magnesium Oxide 400 MG TAB PO SCH (21:06)
[2017-10-29] MEDS: Ferrous Sulfate 325 MG TAB PO SCH ×2 (08:23→16:46)
[2017-10-29] MEDS: Ascorbic Acid 500 mg Chewable Tablet PO SCH ×2 (08:23→16:46)
[2017-10-29] MEDS: Clotrimazole 1% Cream 15 GM TUBE TOP SCH ×2 (08:24→20:19)
[2017-10-29] MEDS: metFORMIN 500 MG TAB PO SCH ×2 (08:24→16:46)
[2017-10-29] MEDS: Famotidine 20 MG TAB PO SCH (08:27)
[2017-10-29] MEDS: Gabapentin 300 MG CAP PO SCH ×2 (08:27→20:13)
[2017-10-29] MEDS: Furosemide 40 MG TAB PO SCH (08:27)
[2017-10-29] MEDS: Enoxaparin Sodium 40 MG/0.4 ML SYRINGE SC SCH (08:27)
[2017-10-29] MEDS: Metoprolol Tartrate 25 MG TAB PO SCH ×2 (08:28→20:13)
[2017-10-29] MEDS: Levemir Flexpen 100 UNITS/ML PEN SC SCH (08:28)
[2017-10-29] MEDS: Multivit, Therapeutic 1 TAB PO SCH (20:13)
[2017-10-29] MEDS: Magnesium Oxide 400 MG TAB PO SCH (20:14)
[2017-10-30] MEDS: Furosemide 40 MG TAB PO SCH (08:16)
[2017-10-30] MEDS: Ascorbic Acid 500 mg Chewable Tablet PO SCH ×2 (08:16→16:57)
[2017-10-30] MEDS: Gabapentin 300 MG CAP PO SCH ×2 (08:16→20:12)
[2017-10-30] MEDS: Famotidine 20 MG TAB PO SCH (08:16)
[2017-10-30] MEDS: Ferrous Sulfate 325 MG TAB PO SCH ×2 (08:16→16:57)
[2017-10-30] MEDS: Enoxaparin Sodium 40 MG/0.4 ML SYRINGE SC SCH (08:17)
[2017-10-30] MEDS: Metoprolol Tartrate 25 MG TAB PO SCH ×2 (08:17→20:12)
[2017-10-30] MEDS: metFORMIN 500 MG TAB PO SCH ×2 (08:17→16:57)
[2017-10-30] MEDS: Clotrimazole 1% Cream 15 GM TUBE TOP SCH ×2 (08:17→20:50)
[2017-10-30] MEDS: Levemir Flexpen 100 UNITS/ML PEN SC SCH (08:27)
--- NOTE | 2017-10-30 14:00 | PRG ---
DATE OF SERVICE: 10/30/2017 SUBJECTIVE: The patient has no complaints. She is up in a chair and very happy today. Her family i s making preparations for her to go back to her home living with her daughter, Silvia, on Saturday, . OBJECTIVE: The patient is sitting up in chair, alert, happy, appears in no distress. Her temperatur e is 97.8, pulse 56, respirations 20, O2 sat 95% on room air, blood pressure 118/59. Lungs are clear. Heart, regular rate. Lower extremities, no edema. Her FBS this morning is 126. ASSESSMENT: 1. Bacteremia. A. The 2 blood cultures drawn on 09/22/2017 were both positive for Staph epidermidis and Staph capit is. Both of these organisms are sensitive to doxycycline and vancomycin and the Staph epi was sensit kika to the cephalosporins. B. Repeat blood cultures drawn on 09/24/2017 showed no growth x2. C. Etiology of the bacteremia, suspect related to the paronychia of the left fourth digit that is re solving. D. Resolved. Remains afebrile. Completed a 7-day course of IV vancomycin on 09/30/2017. Completed a 10-day course of doxycycline. Paronychia of the left fourth finger resolved as of 10/02/2017. 2. Asthmatic bronchitis with wheezing. A. Resolved. The patient remains afebrile. Lungs remain clear as of 10/30/2017. 3. Congestive heart failure. A. Resolved as of 10/01/2017. B. No recurrence of acute congestive heart failure as of 10/30/2017. 4. Generalized weakness. A. Nonambulatory. Transfers are easier. Patient able to assist a little more with pivoting on the left leg as of 10/30/2017. 5. Closed oblique fracture of the right tibia and fibula and the proximal tibial shaft and fibular s haft. A. 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 B. Managed with a long leg knee immobilizer. C. Tolerating sitting up in a chair without any problem and very comfortable. Beginning to be able to assist more with pivot transfer as of 10/16/2017. D. Repeat x-ray of the tibia, fibula on 10/16/2017, 8 weeks post-fracture shows signs of callus form ation and healing. There is some mild valgus angulation, and some anterior overriding about half the width of the shaft. 6. Chronic atrial fibrillation. A. Rate controlled. B. Not a candidate for anticoagulation. 7. Seizure disorder, controlled. 8. Diabetes, type 2. A. Complicated by mild hypoglycemic episode on the afternoon of 10/06/2017. B. Well controlled with hemoglobin A1c of 6.7 and FBS of 95 as of 10/25/2017. FBS 138 on 10/28/2017 . FBS 126 as of 10/30/2017. 9. 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 PLAN: Continue physical therapy. Anticipate discharge to her home with her daughter, Silvia, on .
[2017-10-30 17:52] VITALS: BMI 27.6
[2017-10-30] MEDS: Magnesium Oxide 400 MG TAB PO SCH (20:12)
[2017-10-30] MEDS: guaiFENesin ER 600 MG TAB PO SCH (20:12)
[2017-10-30] MEDS: Multivit, Therapeutic 1 TAB PO SCH (20:12)
[2017-10-31] MEDS: Levemir Flexpen 100 UNITS/ML PEN SC SCH (08:15)
[2017-10-31] MEDS: Enoxaparin Sodium 40 MG/0.4 ML SYRINGE SC SCH (08:15)
[2017-10-31] MEDS: Furosemide 40 MG TAB PO SCH (08:16)
[2017-10-31] MEDS: Ascorbic Acid 500 mg Chewable Tablet PO SCH ×2 (08:16→16:39)
[2017-10-31] MEDS: Gabapentin 300 MG CAP PO SCH ×3 (08:16→21:55)
[2017-10-31] MEDS: Ferrous Sulfate 325 MG TAB PO SCH ×2 (08:16→16:39)
[2017-10-31] MEDS: Famotidine 20 MG TAB PO SCH (08:16)
[2017-10-31] MEDS: metFORMIN 500 MG TAB PO SCH ×2 (08:16→16:39)
[2017-10-31] MEDS: guaiFENesin ER 600 MG TAB PO SCH ×4 (08:16→21:56)
[2017-10-31] MEDS: Clotrimazole 1% Cream 15 GM TUBE TOP SCH ×2 (08:17→21:34)
[2017-10-31] MEDS: Metoprolol Tartrate 25 MG TAB PO SCH ×3 (08:17→21:56)
[2017-10-31] MEDS: Magnesium Oxide 400 MG TAB PO SCH ×2 (21:35→21:57)
[2017-10-31] MEDS: Multivit, Therapeutic 1 TAB PO SCH (21:35)
[2017-11-01] MEDS: Enoxaparin Sodium 40 MG/0.4 ML SYRINGE SC SCH (07:54)
[2017-11-01] MEDS: Ferrous Sulfate 325 MG TAB PO SCH ×2 (07:54→16:58)
[2017-11-01] MEDS: metFORMIN 500 MG TAB PO SCH ×2 (07:54→16:58)
[2017-11-01] MEDS: Gabapentin 300 MG CAP PO SCH ×2 (07:54→20:12)
[2017-11-01] MEDS: guaiFENesin ER 600 MG TAB PO SCH ×3 (07:54→20:12)
[2017-11-01] MEDS: Metoprolol Tartrate 25 MG TAB PO SCH ×2 (07:55→20:12)
[2017-11-01] MEDS: Ascorbic Acid 500 mg Chewable Tablet PO SCH ×2 (07:55→16:58)
[2017-11-01] MEDS: Furosemide 40 MG TAB PO SCH (07:55)
[2017-11-01] MEDS: Famotidine 20 MG TAB PO SCH (07:55)
[2017-11-01] MEDS: Levemir Flexpen 100 UNITS/ML PEN SC SCH (07:56)
[2017-11-01] MEDS: Clotrimazole 1% Cream 15 GM TUBE TOP SCH ×2 (08:05→20:13)
--- NOTE | 2017-11-01 11:44 | PRG ---
TE OF SERVICE: 11/01/2017 SUBJECTIVE: The patient has no complaint. Nurses have not reported any change in her condition or n ew problems. Daughter, Silvia, is making preparation for the patient to come home on 11/04/2017, [place]. OBJECTIVE: The patient is sitting up in a Nataly chair. She is alert, appears very comfortable. Her temperature is 97.8, pulse 90, respirations 18, O2 sat 92% on room air, blood pressure is 98/54, ear lier 114/57. Lungs are clear. Heart, regular rate. Lower extremities, no edema. Hemoglobin A1c on 10/24/2017 was 6.7. FBS this morning 130. ASSESSMENT: 1. Bacteremia. A. The 2 blood cultures drawn on 09/22/2017 were both positive for Staph epidermidis and Staph capit is. Both of these organisms are sensitive to doxycycline and vancomycin and the Staph epi was sensit kika to the cephalosporins. B. Repeat blood cultures drawn on 09/24/2017 showed no growth x2. C. Etiology of the bacteremia, suspect related to the paronychia of the left fourth digit that is re solving. D. Resolved. Remains afebrile. Completed a 7-day course of IV vancomycin on 09/30/2017. Completed a 10-day course of doxycycline. Paronychia of the left fourth finger resolved as of 10/02/2017. 2. Asthmatic bronchitis with wheezing. A. Resolved. The patient remains afebrile. Lungs remain clear as of 11/01/2017. 3. Congestive heart failure. A. Resolved as of 10/01/2017. B. No recurrence of acute congestive heart failure as of 11/01/2017. 4. Generalized weakness. A. Nonambulatory. Transfers are easier. Patient able to assist a little more with pivoting on the left leg as of 10/30/2017. 5. Closed oblique fracture of the right tibia and fibula and the proximal tibial shaft and fibular s haft. A. 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 B. Managed with a long leg knee immobilizer. C. Tolerating sitting up in a chair without any problem and very comfortable. Beginning to be able to assist more with pivot transfer as of 10/16/2017. D. Repeat x-ray of the tibia, fibula on 10/16/2017, 8 weeks post-fracture shows signs of callus form ation and healing. There is some mild valgus angulation, and some anterior overriding about half the width of the shaft. 6. Chronic atrial fibrillation. A. Rate controlled. B. Not a candidate for anticoagulation. 7. Seizure disorder, controlled. 8. Diabetes, type 2. A. Well controlled with hemoglobin A1c of 6.7 and FBS of 130 as of 11/01/2017. 9. 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 PLAN: Continue present care. Arrangements are being made for the patient's discharge to her home un nikos the care of her daughter, Silvia, on 11/04/2017.
[2017-11-01] MEDS: Magnesium Oxide 400 MG TAB PO SCH (20:12)
[2017-11-01] MEDS: Multivit, Therapeutic 1 TAB PO SCH (20:12)
[2017-11-02] MEDS: metFORMIN 500 MG TAB PO SCH ×2 (08:42→16:50)
[2017-11-02] MEDS: Gabapentin 300 MG CAP PO SCH ×2 (08:43→20:00)
[2017-11-02] MEDS: Ascorbic Acid 500 mg Chewable Tablet PO SCH ×2 (08:43→16:50)
[2017-11-02] MEDS: Metoprolol Tartrate 25 MG TAB PO SCH ×2 (08:43→20:00)
[2017-11-02] MEDS: guaiFENesin ER 600 MG TAB PO SCH ×3 (08:43→20:00)
[2017-11-02] MEDS: Furosemide 40 MG TAB PO SCH (08:43)
[2017-11-02] MEDS: Famotidine 20 MG TAB PO SCH (08:43)
[2017-11-02] MEDS: Ferrous Sulfate 325 MG TAB PO SCH ×2 (08:43→16:50)
[2017-11-02] MEDS: Levemir Flexpen 100 UNITS/ML PEN SC SCH (08:44)
[2017-11-02] MEDS: Clotrimazole 1% Cream 15 GM TUBE TOP SCH ×2 (08:45→20:01)
[2017-11-02] MEDS: Enoxaparin Sodium 40 MG/0.4 ML SYRINGE SC SCH (08:45)
[2017-11-02] MEDS: Multivit, Therapeutic 1 TAB PO SCH (20:00)
[2017-11-02] MEDS: Magnesium Oxide 400 MG TAB PO SCH (20:00)
[2017-11-03] MEDS: metFORMIN 500 MG TAB PO SCH ×2 (08:23→17:09)
[2017-11-03] MEDS: Ferrous Sulfate 325 MG TAB PO SCH ×2 (08:23→17:09)
[2017-11-03] MEDS: Ascorbic Acid 500 mg Chewable Tablet PO SCH ×2 (08:23→17:08)
[2017-11-03] MEDS: Enoxaparin Sodium 40 MG/0.4 ML SYRINGE SC SCH (09:36)
[2017-11-03] MEDS: guaiFENesin ER 600 MG TAB PO SCH ×3 (09:37→21:11)
[2017-11-03] MEDS: Famotidine 20 MG TAB PO SCH (09:37)
[2017-11-03] MEDS: Furosemide 40 MG TAB PO SCH (09:37)
[2017-11-03] MEDS: Metoprolol Tartrate 25 MG TAB PO SCH ×2 (09:37→21:11)
[2017-11-03] MEDS: Gabapentin 300 MG CAP PO SCH ×2 (09:37→21:10)
[2017-11-03] MEDS: Levemir Flexpen 100 UNITS/ML PEN SC SCH (09:38)
[2017-11-03] MEDS: Clotrimazole 1% Cream 15 GM TUBE TOP SCH ×2 (09:39→21:13)
[2017-11-03] MEDS: Multivit, Therapeutic 1 TAB PO SCH (21:11)
[2017-11-03] MEDS: Magnesium Oxide 400 MG TAB PO SCH (21:11)
[2017-11-04 07:29] VITALS: BP 105/51; TEMP 97.3
[2017-11-04] MEDS: Famotidine 20 MG TAB PO SCH (08:16)
[2017-11-04] MEDS: Ferrous Sulfate 325 MG TAB PO SCH ×2 (08:16→16:30)
[2017-11-04] MEDS: metFORMIN 500 MG TAB PO SCH ×2 (08:16→16:30)
[2017-11-04] MEDS: Ascorbic Acid 500 mg Chewable Tablet PO SCH ×2 (08:16→16:30)
[2017-11-04] MEDS: Enoxaparin Sodium 40 MG/0.4 ML SYRINGE SC SCH (08:17)
[2017-11-04] MEDS: guaiFENesin ER 600 MG TAB PO SCH ×2 (08:17→15:07)
[2017-11-04] MEDS: Metoprolol Tartrate 25 MG TAB PO SCH (08:17)
[2017-11-04] MEDS: Gabapentin 300 MG CAP PO SCH (08:17)
[2017-11-04] MEDS: Furosemide 40 MG TAB PO SCH (08:17)
[2017-11-04] MEDS: Levemir Flexpen 100 UNITS/ML PEN SC SCH (08:18)
--- NOTE | 2017-11-04 09:02 | DIS ---
FINAL DIAGNOSES: 1. Generalized weakness. A. Secondary to a fall resulting in a closed fracture of the proximal tibia and fibula. B. 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 C. Marked decline in her functional ability and ability to help with transfers since fall with fracture. D. Improved where her right leg is stable, but not weightbearing and able to assist by pivot a little with transfers. 2. Closed oblique fracture of the right tibia and fibula at the junction of the proximal and middle third closed. A. Secondary to a fall on 08/17/2017. B. Managed nonoperatively due to her comorbidities and stroke leaving her paralyzed on the right side. C. Managed with a long leg knee immobilizer. Not a candidate for cast due to numbness in the right leg and risk of skin breakdown. D. Healing with good callus formation, but unable to weight bear. 3. Status post cerebrovascular in 2000. A. Leaving her with a right hemiparalysis, aphasia and mild dysphagia. 4. Paroxysmal atrial fibrillation. A. Rate controlled. B. Not a candidate for anticoagulation due to fall risk. 5. Seizure disorder, controlled. 6. Diabetes type 2. A. Controlled. 7. Depression, controlled. 8. Bacteremia. A. Two blood cultures drawn on 09/22/2017 were positive for Staph epi and Staph capitis. Both these organisms sensitive to doxycycline and vancomycin and the Staph epi sensitive to cephalosporins. B. Repeat blood cultures drawn on 09/24/2017 showed no growth x2. C. Etiology of the bacteremia secondary to paronychia of the left fourth digit that has resolved. D. Resolved, completed a 7-day course of IV vancomycin on 09/30/2017. Completed an additional 10 day course of doxycycline on 10/11/2017. 9. Episode of asthmatic bronchitis. A. Resolved on 10/06/2017. 10. Mild diastolic dysfunction. A. Complicated by mild congestive heart failure with resolution on 10/01/2017 with no recurrence. REASON FOR ADMISSION: The patient is an 85-year-old white female who has a history of a previous CVA that has left her with a right hemiparalysis, aphasia and mild dysphagia. She also has paroxysmal atrial fibrillation for which the rate is controlled, but she is not a candidate for long-term anticoagulants due to her fall risk. She has hypertension and diabetes type 2. She resides in her home and taken care of by her daughter, Silvia. She is not ambulatory, but is able to assist with pivot for transferring from her bed to a chair and the reverse of this. The patient had a fall on 08/17/2017 resulting in an oblique displaced fracture of the tibia and fibula located in the junction of the mid and proximal third of the leg. This was a closed fracture. She was hospitalized at [facility] and after careful consideration, it was elected not to manage this operatively. This had occurred on her stroke side, which she is paralyzed on. The bones are osteoporotic and she prior to the fall was nonambulatory. She was placed in a knee immobilizer and seemed to be quite comfortable with this. The left leg was left with a knee immobilizer and it was expected that the bone would heal, but because of the oblique nature and some of the overriding it was felt that she would not be weightbearing with this leg, and of course, she had not been even prior to this. The patient was transferred to [facility] on 08/20/2017 for purpose of physical therapy in an effort to try to improve her general functional capabilities in bed, improve her ability to assist with transfer and improve her bed and chair mobility, also give a chance for the bone to develop some healing and callus. The patient's pain was well controlled and gradually she was able be controlled with just Tylenol alone. The follow up x-rays on the legs showed at 8 weeks' callus formation around the fracture site. There was still some overlying fragments of the tibia, but overall all the bone looked very stable with these evidence of healing. The patient improved with her bed tolerance and mobility in bed and did very well with her chair mobility. She was able to assist a little bit by pivoting on the left foot during transfer. The patient was left on DVT prophylaxis with Lovenox during her hospitalization. During her stay, she did develop some asthmatic bronchitis that resolved with nebulization treatments, a course of steroids and antibiotics. She does have a history of some diastolic dysfunction and during the acute illness developed some mild congestive heart failure that resolved. Her diabetes was controlled with her receiving Levemir 15 units subcu daily. She had a sliding scale ordered, but did not need this. She also was on metformin 500 mg b.i.d. Her FBS was running around 110 on the day of discharge. The fasting blood sugar was 709. Her hemoglobin A1c on 10/24/2017 was 6.7. During her hospitalization, she also developed a fever and during that time her urine was unremarkable. Her chest x-ray did not show any definite infiltrates. Two of 2 blood cultures were positive for Staph epidermidis and Staph capitis, both of these organisms were sensitive to doxycycline and vancomycin and the Staph epi was sensitive to cephalosporins. The patient had a paronychia of the left fourth digit and she had a very marked leukocytosis with large number of very premature cells. It was felt that this was truly bacteremia, not just a skin contaminant with the potential source being the paronychia and the severe leukocytosis and the high fever. Her fever all resolved. She was treated with IV vancomycin, the paronychial resolved. She was treated with a 7-day course of IV vancomycin. Her repeat blood cultures drawn on 10/25/2017 had no growth x2. She was given an additional 10 day course of doxycycline that she completed on 10/11/2017 and had no recurrence. Family did not want to pursue any type of echocardiogram to ensure there was no valvular involvement. The patient had no recurrence of this. Overall, the patient continued to do well. Her daughter, Silvia, who she was living with, has felt that she could manage her fine at home. She will have home health to look in and assist with her care. She has a Denny lift to assist with the transfer. She also has a geriatric chair that will allow the arms to let down and the bed to flatten and raise up level with the bed, which will allow easy transfer of patient with a sliding board into the Nataly chair. The patient was very happy to go home and this was the patient's wishes. Home health will be looking in and assisting with her care. The patient's condition continued to be stable with her lungs clear. Heart, regular rate on her day of discharge 11/04/2017. DISPOSITION: DIET: Consistent carbohydrate diet. ACTIVITIES: Up in a chair as tolerated, no weightbearing on the right leg. The daughter will use a Denny lift or geriatric chair to assist with any transfers. Home health will also see the patient and continue in home PT and OT. MEDICATIONS: Tylenol 325 mg 2 every 6 hours as needed for pain, DuoNeb by nebulizer every 4 hours as needed, vitamin C 500 mg b.i.d., aspirin 81 mg daily , baclofen 10 mg t.i.d. as needed for spasm, Lotrisone cream b.i.d. to affected area as needed, Dulcolax suppository 10 mg 1 per rectum daily as needed, vitamin D3 1000 units daily, famotidine 20 mg daily, ferrous sulfate 325 mg b.i.d., furosemide 40 mg daily, Neurontin 300 mg b.i.d., Levemir 15 units subcu daily, metformin 500 mg b.i.d., mag oxide 400 mg at bedtime, metoprolol succinate ER 50 mg 1/2 tablet daily, multivitamin daily, Dilantin ER 100 mg on Saturday, Saturday, and Saturday. Sertraline 150 mg daily, MiraLax 17 grams in 8 ounces water daily. FOLLOW UP: Home health will see patient and continue in home PT and OT. In 1 month Home Health will draw a CBC, CMP and Dilantin level. CODE STATUS: Full code. FOLLOWUP: The patient will be seen in followup by myself in 3 months or sooner as needed. CARLEE
[2017-11-04] MEDS: Clotrimazole 1% Cream 15 GM TUBE TOP SCH (10:57)
[2017-11-04] MEDS: HumaLOG 300 UNITS/3 ML VIAL SC PRN (12:09)
--- NOTE | 2017-11-08 11:30 | PQF ---
[facility] Physician Query Form MARKUS SALGADO GROVER MD [id number] CLINICAL DOCUMENTATION CLARIFICATION FORM: POST DISCHARGE Addendum to original discharge summary date: ____ Late entry note date: __ DATE: 11/08/17 ATTN: DR. SARTHAK FINK Please exercise your independent, professional judgment in responding to the clarification form. Clinical indicators are provided on the bottom of this form for your review Please check appropriate box(es): [ ] Sepsis due to: (Pna, UTI, gangrenous gall bladder, etc.) Due to: [ ] Device (please specify) [ ] Implant [ ] Graft [ ] Infusion [ ] SIRS due to non-infectious process (please specify etiology) [ ] with organ dysfunction [ ] without organ dysfunction [ ] Severe sepsis with acute organ dysfunction of: (Examples: respiratory failure, encephalopathy, acute kidney failure, other) [ ] Septic Shock [ ] Localized infection without sepsis [ ] Other diagnosis [ ] Unable to determine In addition, please specify: Present on Admission (POA): [ ] Yes [ ] No [ ] Unable to determine For continuity of documentation, please document condition throughout progress notes and discharge summary. Thank You. CLINICAL INDICATORS - SIGNS / SYMPTOMS / LABS Elevated WBC count Positive blood cultures RISK FACTORS Infection/Bacteremia TREATMENTS: levaquin vancomycin Page 1 of 2 Note to Provider: In responding to this query, you must exercise independent clinical judgment. The fact that a query is placed does not imply that any particular answer is desired or expected. Please document your response/ clarification to this query in the patients medical record. Your response should clarify and resolve conflicting, ambiguous, or incomplete information in the health record regarding any significant reportable condition or procedure. ( 2008 [facility] Practice Brief, pg. 5) [employer] does not endorse or approve queries developed by the hospital or its agents and issued through the [employer] software that are not in accordance with the rules or regulations promulgated by the Centers for Medicare and Medicaid (CMS), Office of [employer] (OIG), or US Department of Health and Human Services and [facility] 2008 Practice Brief Managing an Effective Query Process or its updates (Practice Brief). CARLEE
== END 2017-11-04 19:03 | disposition home health service (06) | DRG 563 ==
LOC: MADMS 17:44
PROVIDERS: ADMIT Family Medicine; ATTEND Family Medicine
DX: S82.231A Displaced oblique fracture of shaft of right tibia, initial encounter for closed fracture (principal); I69.951 Hemiplegia and hemiparesis following unspecified cerebrovascular disease affecting right dominant side; I50.30 Unspecified diastolic (congestive) heart failure; S82.191A Other fracture of upper end of right tibia, initial encounter for closed fracture; R53.1 Weakness; I69.920 Aphasia following unspecified cerebrovascular disease; I69.991 Dysphagia following unspecified cerebrovascular disease; R13.10 Dysphagia, unspecified; I48.0 Paroxysmal atrial fibrillation; G40.909 Epilepsy, unspecified, not intractable, without status epilepticus; F32.9 Major depressive disorder, single episode, unspecified; J45.909 Unspecified asthma, uncomplicated; I11.0 Hypertensive heart disease with heart failure; L03.012 Cellulitis of left finger; S82.431A Displaced oblique fracture of shaft of right fibula, initial encounter for closed fracture; S82.831A Other fracture of upper and lower end of right fibula, initial encounter for closed fracture; E11.649 Type 2 diabetes mellitus with hypoglycemia without coma; W01.0XXA Fall on same level from slipping, tripping and stumbling without subsequent striking against object, initial encounter; Y93.9 Activity, unspecified; Y92.9 Unspecified place or not applicable; Y99.9 Unspecified external cause status
CPT/HCPCS: 36415; 36416; 71045; 80048; 80185; 80202; 81001; 83036; 83880; 85025; 87040; 87077; 87149; 87186; 94640; A4216; A4353; G8978-GP-CL; G8978-GP-CM; G8979-GP-CK; G8984-GO-CL; G8985-GO-CI; G8987-GO-CL; G8988-GO-CK; J1650; J1815; J1940; J1956; J3370; J7050; J7506; J7620

== ENCOUNTER 2018-03-03 11:12 | Outpatient (CLI) | payer MEDICARE ==
--- NOTE | 2018-03-03 13:54 | RAD ---
SINGLE VIEW OF THE CHEST: Comparison: 09-24-17 History: Chronic cough. FINDINGS: Single view of the chest shows normal sized cardiomediastinal silhouette with atherosclerotic calcifi cations in the aorta. There is no evidence of consolidation, mass, or pleural effusion. IMPRESSION: 1. Cardiomegaly. 2. Atherosclerotic disease. POS: [facility]
--- NOTE | 2018-03-03 14:27 | RAD ---
RIGHT TIBIA AND FIBULAR TWO VIEWS: HISTORY: Tibia fracture. 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 There is callus surrounding the fibula fracture. The fibula fracture is difficult to visualize secondary to overlying tibia on all the obtained sequences. There is hardware in the distal tibia and fibula. IMPRESSION: Nonunion of proximal tibia fracture. POS: [facility]
== END 2018-03-03 11:13 | disposition home or self-care (01) ==
LOC: MADLABBHPM 11:12 → MADRAD 11:13
PROVIDERS: ATTEND Family Medicine
DX: S82.101K Unspecified fracture of upper end of right tibia, subsequent encounter for closed fracture with nonunion (principal); R05 Cough; I51.7 Cardiomegaly; I70.0 Atherosclerosis of aorta
CPT/HCPCS: 71045

== ENCOUNTER 2018-04-04 15:29 | Outpatient (CLI) | payer MEDICARE ==
[2018-04-04 17:24] LABS: Bilirubin Negative (Negative); Blood, Urine Trace (Negative); Glucose, Urine (Dipstick) Negative (Negative); Leukocyte Small (Negative); Nitrite Positive (Negative); Protein, Urine (Dipstick) Negative (Neg-Trace); Urobilinogen 0.2 mg/dL (0.2-1.0); pH, Urine 6.5 (5.0-9.0)
[2018-04-04 17:33] LABS: Clarity Slightly Cloudy (Clear)
[2018-04-04 17:34] LABS: Bacteria/HPF 4+ HPF (None Seen); RBC/HPF 0-3 HPF (0-3)
== END 2018-04-04 15:30 | disposition home or self-care (01) ==
LOC: MADLABBHPM 15:29
PROVIDERS: ATTEND Family Medicine
DX: R33.9 Retention of urine, unspecified (principal)
CPT/HCPCS: 81003; 81015; 87077; 87086; 87186

== ENCOUNTER 2018-05-29 11:08 | Outpatient (CLI) | payer MEDICARE ==
[2018-05-29 11:20] LABS: Bilirubin Negative (Negative); Blood, Urine Small (Negative); Clarity Slightly Cloudy (Clear); Glucose, Urine (Dipstick) Negative (Negative); Leukocyte Small (Negative); Nitrite Negative (Negative); Protein, Urine (Dipstick) > or equal to 300 mg/dL (Neg-Trace); Urobilinogen 0.2 mg/dL (0.2-1.0); pH, Urine 8.5 (5.0-9.0)
[2018-05-29 11:29] LABS: Bacteria/HPF 3+ HPF (None Seen); Other Microscopic Description C&S SET UP
== END 2018-05-29 11:09 | disposition home or self-care (01) ==
LOC: MADLABBHPM 11:08
PROVIDERS: ATTEND Family Medicine
DX: R39.9 Unspecified symptoms and signs involving the genitourinary system (principal)
CPT/HCPCS: 81001; 87077; 87086; 87186

== ENCOUNTER 2019-01-03 10:12 | Emergency (ER) | payer MEDICARE ==
[2019-01-03] MEDS ORDERED: Sodium Chloride 0.9% 1,000 ML ONE (11:03)
[2019-01-03 11:27] LABS: Bilirubin Negative (Negative); Blood, Urine Large (Negative); Clarity Cloudy (Clear); Glucose, Urine (Dipstick) Negative (Negative); Leukocyte Small (Negative); Nitrite Negative (Negative); Protein, Urine (Dipstick) 100 mg/dL (Neg-Trace); Urobilinogen 0.2 mg/dL (Less than 2)
[2019-01-03 11:30] LABS: ALT (SGPT) 9 U/L (8-55); AST (SGOT) 13 U/L (5-34); Albumin 2.8 g/dL (3.4-4.8); Alkaline Phosphatase 122 U/L (40-150); Anion Gap 16 mmol/L (10-20); BUN (Urea Nitrogen) 20 mg/dL (9.8-20.1); Bilirubin, Total 0.2 mg/dL (0.2-1.2); CK (CPK) 31 U/L (29-168); Calc. Creatinine Clearance 0 mL/min (70-130); Calcium 11.1 mg/dL (7.8-10.44); Carbon Dioxide 24 mmol/L (23-31); Chloride 103 mmol/L (98-107); Estimated GFR-MDRD 49; Glucose 125 mg/dL (83-110); Potassium 4.2 mmol/L (3.5-5.1); Protein, Total 6.8 g/dL (6.0-8.3); Sodium 139 mmol/L (136-145)
--- NOTE | 2019-01-03 11:30 | RAD ---
Portable frontal chest radiograph: 01/03/2019 COMPARISON: 03/03/2018 HISTORY: Cough FINDINGS: There is increased linear interstitial density noted bilaterally. There is mild elevation o f the right hemidiaphragm. No pneumothorax or pleural fluid is seen. There is no focal consolidation or alveolar edema. There is atherosclerotic calcification of the aortic arch. IMPRESSION: Extensive interstitial prominence suggesting chronic interstitial disease. No focal conso lidation or alveolar edema.
[2019-01-03 11:33] LABS: #Basophils 0.2 thou/uL (0.0-0.2); #Eosinphils 0.8 thou/uL (0.0-0.7); #Lymphocytes 1.8 thou/uL (1.20-3.40); #Monocytes 1.9 thou/uL (0.11-0.59); #Neutrophils 13.3 thou/uL (1.40-6.50); %Basophils 1.2 % (0.0-1.0); %Eosinophils 4.4 % (0.0-10.0); %Monocytes 10.5 % (0.0-10.0); %Neutrophils 73.8 % (42.0-75.0); Hypochromia SLIGHT = 6-15 cells (100X) (0-5/hpf); MDiff Complete? YES; Mean Corpuscular HGB CONC 30.5 g/dL (32.0-36.0); Mean Corpuscular Hemoglobin 22.6 pg (27.0-31.0); Mean Corpuscular Volume 74.1 fL (78.0-98.0); Mean Platelet Volume 5.6 fL (7.4-10.4); Microcytosis SLIGHT = 6-15 cells (100X) (0-5/hpf); Platelet Count 733 thou/uL (130-400); Polychromasia SLIGHT = 2-3 cells (100X) (0-2/hpf); RBC Distribution Width 16.9 % (11.5-14.5); Red Blood Cell (RBC) Count 3.53 mill/uL (4.20-5.40)
[2019-01-03 11:36] LABS: Bacteria/HPF 3+ HPF (None Seen)
--- NOTE | 2019-01-03 11:41 | CT ---
Head CT without contrast 01/03/2019: COMPARISON: 06/17/2002 HISTORY: Altered mental status TECHNIQUE: Axial CT imaging at 5 mm intervals from vertex through skull base without contrast FINDINGS: Imaged paranasal sinuses/mastoid air cells are well aerated. There is no displaced calvaria l fracture. There is extensive periventricular and deep white matter hypodensity, evidence of small vessel disease. There is severe encephalomalacia throughout the left MCA territory, evidence of a bettina or large left MCA infarction. No intracranial hemorrhage, midline shift, or mass effect. IMPRESSION: No intracranial hemorrhage. Evidence of prior left MCA infarction and significant small v essel disease.
[2019-01-03] MEDS ORDERED: Sodium Chloride 0.9% 100 ML ONE (11:52)
[2019-01-03] MEDS ORDERED: cefTRIAXone\\ROCEPHIN 1 GM VIAL ONE (11:52)
== END 2019-01-03 12:56 | disposition short-term general hospital (02) ==
LOC: MADERS 10:12
DX: N39.0 Urinary tract infection, site not specified (principal); D64.9 Anemia, unspecified; I48.91 Unspecified atrial fibrillation; E11.9 Type 2 diabetes mellitus without complications; I10 Essential (primary) hypertension; E11.40 Type 2 diabetes mellitus with diabetic neuropathy, unspecified; F32.9 Major depressive disorder, single episode, unspecified; Z86.73 Personal history of transient ischemic attack (TIA), and cerebral infarction without residual deficits; Z79.84 Long term (current) use of oral hypoglycemic drugs; Z79.899 Other long term (current) drug therapy
CPT/HCPCS: 36415; 36416; 51701; 70450; 71045; 80053; 81003; 81015; 82550; 83605; 83735; 83880; 84484; 85025; 87086; 93005; 94760; 96361; 96365; A4353; J0696; J3490; J7050